=== PATIENT | male | born 1950 | race African-American/Black ===

== ENCOUNTER 2022-11-16 09:03 | Emergency (ER) | payer OTHER ==
--- OUTSIDE RECORDS SUMMARY | 2022-11-16 09:13 | XMS REPORT | Continuity of Care Document ---
:1950 Author Organization [facility] t Address [address] [facility] [address] [place] [address] Care Team Providers Name Role Phone MICHELLE NOLAN Primary Care Physician Unava ilable MICHELLE NOLAN Attending Clinician Unavailable JORGE AGUAYO Attending Clinician Unavailable PATRIA DECKER Attending Clinician Unavailable LAURA HIGUERA Attending Clinician Unavailable LAB47 Attending Clinician Unavailable [facility] Attending Clinician Unavail able RENA WEST Attending Clinician Unavailable VF1 Attending Clinician Unavailable BASHIR BAKER Attending Clinician Unavailable Bashir Baker MD Attending Clinician Unavailable SAMUEL NORTH Attending Clinician Unavailable BASHIR BAKER Attending Clinician Unavailable VIJAYA VELASQUEZ Attending Clinician Unavailable GLEN US Attending Clinician Unavailable LAB39 Attending Clinician Unavailable 39, HOLTER Attending Clinician Unavailable PANCHO MERAZ Attending Clinician Unavailable 1, OPTICAL COHERENCE TOMOGRAPHY Attending Clinician Unavaila JAMMIE Herr Attending Clinician Unavailable MAC, EKG- Attending Clinician Unavailable COVID-MODERNA VACCCINDY Attending Clinician Unavailable CHANDRIKA FREITAS Attending Clinician Unavailable Vijaya Velasquez MD Attending Clinician Patria Decker PA-C Attending Clinician FLOOR, LAB HEM-ONC 2ND Attending Clinician Unavailable Glen Us MD Attending Clinician INJCINDY Attending Clinician Unavailable VF2 Attending Clinician Unavailable Jammie Pantoja OD Attending Clinician TRED47 Attending Clinician Unavailable JILLIAN DANIEL Attending Clinician Unavailable SERAFIN DUVAL Attending Clinician Unavailable SHAYNE LEVI Attending Clinician Unavailable RENARD GUERRA Attending Clinician Unavailable LEI PEREZ Attending Clinician Unavailable BASHIR BAKER Admitting Clinician Unavailable BRADLEY GUTIERREZ Admitting Clinician Unavailable SERAFIN DUVAL Admitting Clinician Unavailable RENARD GUERRA Admitting Clinician Unavailable LEI PEREZ Admitting Clinician Unavailable Payers Payer Name Policy Type Policy Number Effective Date Expiration Date Srinivas thomas [employer] TXP 7 [id number] 2021 CLASSIC NO PREMIUM 00:00:00 R2T [employer] ALL [id number] 2018 00:00:00 Problems Condition Condition Condition Status Onset Resolution Last Treating Co mments Source Name Details Category Date Date Treatment Clinician Date S/P S/P Disease Active [facility] placement placement 05-06 Sindhu s of cardiac of cardiac 00:00: Me dical pacemaker pacemaker 00 Cent er dual dual chamber chamber MDT MRI MDT MRI conditiona conditiona l, right l, right 05/06/2022 05/06/2022 Mild Mild Disease Active 2021-04 Last Crystal protein-ca protein-ca 0-20 Assessmen Gutierrez hardin 00:00: t & Plan: - malnutriti malnutriti 00 Formattin Externa on on g of this l note might be different from the original. Has been losing weight. Appetite the same. No GI symptoms. Encourage d continue boost or ensure and increase portions. 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 Due to emphysema seen on CT scan. Last Assessmen t & Plan: Formattin g of this note might be different from the original. Controlle d No symptoms. Observati on PAD PAD Disease Recurre 2021-04 Overview[facility] (periphera (periphera nce 0-20 Formattin [facility] l artery l artery 00:00: g of this Med ical disease) disease) 00 note Center might be different from the original. Formattin g of this note might be different from the original. [place]- mild on right. Normal on left. No symptoms. Last Assessmen t & Plan: Formattin g of this note might be different from the original. Controlle d continue risk factor reduction with ASA, statin, bp control. Pericardia Pericardia Disease Active Overview : Crystal l cyst l cyst 12-05 Formattin Seybold 00:00: g of this - 00 note Externa might be l different from the original. Noted on chest CT Coronary Coronary Disease Active Overview: Ke lsey artery artery 12-05 Formattin Seybold disease disease 00:00: g of this - involving involving 00 note Ex[place] might be l coronary coronary different artery of artery of from the [place] original. heart heart Reported without without on CT angina angina scan of pectoris pectoris the chest. Treated with risk factor reduction with an aspirin and statin and blood pressure controlLa st Assessmen t & Plan: Formattin g of this note might be different from the original. Controlle d continue risk factor reduction with aspirin and blood pressure control. Lung Lung Disease Active Crystal nodule nodule 12-05 Seybold 00:00: - 00 Externa l Coronary Coronary Disease Active Overview: [facility] artery artery 12-05 Formattin [facility] disease disease 00:00: g of this Medic al involving involving 00 note Cent er [place] might be coronary coronary different artery of artery of from the [place] original. heart heart Formattin without without g of this angina angina note pectoris pectoris might be different from the original. Reported on CT scan of the chest. Treated with risk factor reduction with an aspirin and statin and blood pressure controlLa st Assessmen t & Plan: Formattin g of this note might be different from the original. Controlle d continue risk factor reduction with aspirin and blood pressure control. 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 Diet controlle d diabetes. Goal A1c is less than 8.0. CKD 3 has been stable. Pt is on an MARIO. Avoids NSAIDS.La st Assessmen t & Plan: Formattin g of this note might be different from the original. Controlle d diabetes with diet. CKD has been relativel y stable. Gastroesop Gastroesop Disease Active Jose mccarty hageal 12-02 Seybold reflux reflux 00:00: disease disease 00 without without esophagiti esophagiti s s Chronic Chronic Disease Recurre Overview: [facility] kidney kidney nce 12-02 Kandi Vicente disease, disease, 00:00: g of this Med ical stage 3a stage 3a 00 note Center might be different from the original. Formattin g of this note might be different from the original. Due to HTN and DM. Avoids NSAIDS. Control blood pressure. Monitor. Last Assessmen t & Plan: Formattin g of this note might be different from the original. Has been relativel y stable. But if continues decreased below 40 will refer to nephrolog y. MGUS MGUS Disease Active Overview: [facility] (monoclona (monoclona 12-02 Formatjake Danielkes l l 00:00: g of this Medical gammopathy gammopathy 00 note Ce nter of unknown of unknown might be significan significan different ce) ce) from the original. Formattin g of this note might be different from the original. Followed by hematolog y. Elevated urinary protein, mildly high free light chains with normal ratio.Las t Assessmen t & Plan: Formattin g of this note might be different from the original. Stable. Continue routine follow-up with hematolog y. Type 2 Type 2 Disease Active Overview: Crystal diabetes diabetes 24 Kandi Spann bold mellitus mellitus 00:00: g of this with stage with stage 00 note 3 chronic 3 chronic might be kidney kidney different disease disease from the original. Diet controlle d diabetes. Goal A1c is less than 8.0. CKD 3 has been stable. Pt is on an MARIO. Avoids NSAIDS.La st Assessmen t & Plan: Formattin g of this note might be different from the original. Controlle d DM and CKD stable. 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 Formattin g of this note might be different from the original. Pt on drops and followed by optometry . Last Assessmen t & Plan: Formattin g of this note might be different from the original. Severe but stable. Continue Rx per optometry . 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 Diet controlle d DM. Goal A1c is less than 8.0. Patient is on a statin.[facility] t & Plan: Formattin g of this note might be different from the original. Controlle d diabetes with diet. Hyperlipi demia treated with a statin. Hypertensi Hypertensi Disease Active 2018-04 Overview : Crystal ve renal ve renal 1-[address] disease disease 00:00: g of this - note Externa might be l different from the original. Goal BP less than 140/90. CKD managed by controlli ng blood pressure and avoiding NSAIDs.Ut Assessmen t & Plan: Formattin g of this note might be different from the original. Blood pressure not controlle d. We will follow-up in about 4 weeks. CKD has been relativel y stable. If continues GFR less than 40 will refer to renal. Pacemaker Pacemaker Disease Recurre [facility] infection, infection, nce 8-08 Sindhu sanjivs initial initial 00:00: Medical encounter encounter 00 Cent er Pulmonary Pulmonary Disease Recurre Overview: [facility] emphysema emphysema nce 6-30 Formattin L ukes 00:00: g of this Medical 00 note Center might be different from the original. Formattin g of this note might be different from the original. Patient has emphysema seen on CT scan. He has no symptoms. Observati on. Last Assessmen t & Plan: Formattin g of this note might be different from the original. Controlle d. Continue to monitor. Stage 3 Stage 3 Disease Active Overview: Rosy lopez chronic chronic 619 Kandi Max ld kidney kidney 00:00: g of this disease disease 00 note might be different from the original. Due to HTN and DM. Avoids NSAIDS. Control blood pressure. Monitor. Last Assessmen t & Plan: Formattin g of this note might be different from the original. Controlle d Type 2 Type [address] [facility] diabetes diabetes nce 6-17 [facility] mellitus mellitus 00:00: Medica l 00 Center Syncope Syncope Disease Active [facility] 6-10 [facility] 00:00: Medical 00 Center EILEEN (acute EILEEN (acute Disease Recurre [facility] kidney kidney nce 6-10 [facility] injury) injury) 00:00: Medical 00 Center Rhabdomyol Rhabdomyol Disease Active [facility] ysis ysis 6-09 [facility] 00:00: Medical 00 Center SSS (sick SSS (sick Disease Recurre [facility] sinus sinus nce 3-14 [facility] syndrome) syndrome) 00:00: Medi jessy 00 Center Symptomati Symptomati Disease Active [facility] c c 3-14 [facility] bradycardi bradycardi 00:00: Me dical a a 00 Center S/P S/P Disease Active [facility] placement placement 3-14 Luke s of cardiac of cardiac 00:00: Ne dical pacemaker pacemaker 00 Cent er DDDPPM MDT DDDPPM MDT MRI MRI conditiona conditiona l left l left 06/15/2018 06/15/2018 Syncope Syncope Disease Active [facility] and and 3-14 [facility] collapse collapse 00:00: Medica l 00 Center SVT SVT Disease Recurre [facility] (supravent (supravent nce 3-14 Sindhu kes ricular ricular 00:00: Medical tachycardi tachycardi 00 Ce nter a) a) SVT SVT Disease Active Overview: Crystal (supravent (supravent 3-01 Formattin Seybold ricular ricular 00:00: g of this - tachycardi tachycardi 00 note Ex terna a) a) might be l different from the original. S/p Pacemaker 06/2018. Then 11/2018 was removed @ [facility] due to infection . Pt reluctant to get another one. Last Assessmen t & Plan: Formattin g of this note might be different from the original. No symptoms. Continue to monitor. Symptomati Symptomati Disease Active Overview : Crystal tyson c 3-01 Formattin Seybold bradycardi bradycardi 00:00: g of this - a a 00 note Externa might be l different from the original. S/p Pacemaker 06/2018. Then 11/2018 was removed @ [facility] due to infection . Pt reluctant to get another one. Last Assessmen t & Plan: Formattin g of this note might be different from the original. Unchanged Acquired Acquired Disease Active Overview: [facility] hypothyroi hypothyroi 10-17 Formattin [facility] dism dism 00:00: g of this Medical 00 note Center might be different from the original. Formattin g of this note might be different from the original. Tx with levothyro xineLast Assessmen t & Plan: Formattin g of this note might be different from the original. 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 Formattin g of this note might be different from the original. Treated with alpha blockerLa st Assessmen t & Plan: Formattin g of this note might be different from the original. 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 Managed with allopurin olLast Assessmen t & Plan: Formattin g of this note might be different from the original. 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 Formattin g of this note might be different from the original. Goal blood pressure is less than 140/90. Patient is on oral medicatio ns.Last Assessmen t & Plan: Formattin g of this note might be different from the original. Elevated today. The last couple of visits were normal. We will do follow-up in about 4 weeks. 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 Formattin g of this note might be different from the original. Pt is on a statinLas t Assessmen t & Plan: Formattin g of this note might be different from the original. Controlsophia d. Continue atorvasta tin. Allergies, Adverse Reactions, Alerts Allergy Allergy Status Severity Reaction(s) Onset Inactive Treating Comm ents Source Name Type Date Date Clinician NO KNOWN Allergy Active [facility] Social History Social Habit Start Date Stop Date Quantity Comments Source Gender identity Crystal hunter - External Sexual orientation Crystal Whitley - External History SDOH [facility] Alcohol Binge Medical [facility] History SDOH [facility] Alcohol Frequency Medical Center History SDOH [facility] Alcohol Std Drinks Medica l Center Alcohol intake 2022-05-15 2022-05-15 [facility]00:00 of alcohol [facility] (finding) Exposure to 2022-02-09 2022-02-19 Not sure Crystal woodward SARS-CoV-2 (event) 00:00:00 13:26:00 - Exte rnal History of Social 2020-03-15 2020-03-15 Crystal Whitley function 00:00:00 00:00:00 - External Alcohol Comment 2018-09-10 2018-09-10 1 shot a day. Pt [facility] 00:00:[facility] 00:00:00 has not had not Medical C enter drink in a while (1wk). Cigarettes smoked 2016-08-25 2016-08-25 ALPESH Robledo current (pack per 00:00:00 00:00:00 Medical Center day) - Reported Cigarette 2016-08-25 2016-08-25 ALPESH Robledo pack-years 00:00:00 00:00:00 Medical Center Tobacco use and 2016-08-25 2016-08-25 User of smokeless [facility] exposure 00:00:00 00:00:00 tobacco Medical Center History of tobacco 2014-03-06 Chews Tobacco Payam sey Seybold use 00:00:00 - External Sex [birth year] ALPESH Goldberg 00:00:00 00:00:00 Medical Center Smoking Status Start Date Stop Date Source Ex-smoker 2022-08-03 00:00:00 2022-08-03 00:00:00 Crystal narvaez - External Medications Ordered Filled Start Stop Current Ordering Indication Dosage Frequency Signature Comments Components Source Medication Medication Date Date Medication? Clinician (SIG) Name Name Fish Yes Take by Crystal Oil-Choleca 6-19 mouth Seybold lciferol 08:55: - (FISH OIL + 11 Externa D3 OR) l Ferrous Yes [id number] 325mg Take 1 Ke lsey Sulfate 325 6-19 tablet Seybol d (65 Fe) MG 08:55: (325 mg - oral Tab 11 total) by [employer] a mouth l daily (with breakfast) Fish Yes Take by Crystal Oil-Choleca 6-05 mouth Seybold lciferol 09:34: - (FISH OIL + 35 Externa D3 OR) l Ferrous Yes [id number] 325mg Take 1 Ke lsey Sulfate 325 6-05 tablet Seybol d (65 Fe) MG 09:34: (325 mg - oral Tab 35 total) by [employer] a mouth l daily (with breakfast) NIFEdipine 2022-0 Yes [id number] 60mg Take 1 Ke lsey 60 MG oral 6-05 tablet (60 Sey bold TABLET SR 00:00: mg total) - 24 HR 00 by mouth 2 Externa times l daily NIFEdipine 2022-0 Yes [id number] 60mg Take 1 Ke lsey 60 MG oral 6-05 tablet (60 Sey bold TABLET SR 00:00: mg total) - 24 HR 00 by mouth 2 Externa times l daily Fish Yes Take by Crystal Oil-Choleca 5-02 mouth Seybold lciferol 09:07: - (FISH OIL + 03 Externa D3 OR) l Ferrous Yes [id number] 325mg Take 1 Ke lsey Sulfate 325 5-02 tablet Seybol d (65 Fe) MG 09:07: (325 mg - oral Tab 03 total) by [employer] a mouth l daily (with breakfast) Metoprolol Yes [id number] 25mg Take 1 Ke lsey Tartrate 5-02 tablet (25 Seybo ld (LOPRESSOR) 00:00: mg total) - 25 MG oral 00 by mouth 2 Ext krupa Tablet times l daily Levothyroxi Yes [id number] Take 1 Crystal ne Sodium 5-02 daily. Seybold 88 MCG oral 00:00: - Tablet 00 Externa l Metoprolol Yes [id number] 25mg Take 1 Ke lsey Tartrate 5-02 tablet (25 Seybo ld (LOPRESSOR) 00:00: mg total) - 25 MG oral 00 by mouth 2 Ext krupa Tablet times l daily Levothyroxi Yes [id number] Take 1 Crystal ne Sodium 5-02 daily. Seybold 88 MCG oral 00:00: - Tablet 00 Externa l Metoprolol 0 Yes [id number] 25mg Take 1 Ke lsey Tartrate 5-02 tablet (25 Seybo ld (LOPRESSOR) 00:00: mg total) - 25 MG oral 00 by mouth 2 Ext krupa Tablet times l daily Levothyroxi Yes [id number] Take 1 Crystal ne Sodium 5-02 daily. Seybold 88 MCG oral 00:00: - Tablet 00 Externa l Zoster Vac 2022- No [id number] 50ug Inject 0.5 Crystal Recomb 5-02 06-05 mL (50 mcg Seybol d Adjuvanted 00:00: 00:00 total) - (Shingrix) 00 :00 into the Exter na 50 MCG/0.5 muscle l mL once for 1 Intramuscul dose One ar Recon dose now. Suspension Second dose given two to six months AFTER first dose. Zoster Vac 2022- No [id number] 50ug Inject 0.5 Crystal Recomb 5-02 05-03 mL (50 mcg Seybol d Adjuvanted 00:00: 04:59 total) - (Shingrix) 00 :00 into the Exter na 50 MCG/0.5 muscle l mL once for 1 Intramuscul dose One ar Recon dose now. Suspension Second dose given two to six months AFTER first dose. Atorvastati 0 Yes TAKE ONE Ke lsey n Calcium 4-21 TABLET BY Seybo ld 20 MG oral 00:00: MOUTH - Tablet 00 EVERY DAY Externa l Atorvastati 2022-0 Yes TAKE ONE Ke lsey n Calcium 4-21 TABLET BY Seybo ld 20 MG oral 00:00: MOUTH - Tablet 00 EVERY DAY Externa l Atorvastati 2022-0 Yes TAKE ONE Ke lsey n Calcium 4-21 TABLET BY Seybo ld 20 MG oral 00:00: MOUTH - Tablet 00 EVERY DAY Externa l NIFEdipine 2022-0 Yes [id number] TAKE ONE Crystal 60 MG oral 3-10 TABLET BY Seyb old TABLET SR 00:00: MOUTH - 24 HR 00 TWICE A Externa DAY l NIFEdipine 2022-0 2022- No [id number] TAKE ONE Crystal 60 MG oral 3-10 06-05 TABLET BY Sey bold TABLET SR 00:00: 00:00 MOUTH - 24 HR 00 :00 TWICE A Externa DAY l Terazosin 2022-0 Yes TAKE ONE Rosy ey HCl 5 MG 2-24 CAPSULE BY Seybo ld oral 00:00: MOUTH - Capsule 00 EVERY Externa EVENING l Terazosin 2022-0 Yes TAKE ONE Rosy ey HCl 5 MG 2-24 CAPSULE BY Seybo ld oral 00:00: MOUTH - Capsule 00 EVERY Externa EVENING l Terazosin 2022-0 Yes TAKE ONE Rosy ey HCl 5 MG 2-24 CAPSULE BY Seybo ld oral 00:00: MOUTH - Capsule 00 EVERY Externa EVENING l Fish 2022-0 Yes Take by Crystal Oil-Choleca 2-20 mouth Seybold lciferol 12:40: - (FISH OIL + 18 Externa D3 OR) l Ferrous 2022-0 Yes [id number] 325mg Take 325 Crystal Sulfate 325 2-20 mg by Seybold (65 Fe) MG 12:40: mouth - oral Tab 18 daily Externa (with l breakfast) Brimonidine 2023-0 Yes [id number] 1[drp] Place 1 Crystal Tartrate 2-20 drop into Seybol d 0.2 % 00:00: both eyes - ophthalmic 00 2 times [employer] a Solution daily l Dorzolamide 2023-[id number] 1 Crystal -Timolol 2-20 DROP IN Seybold 22.3-6.8 00:00: EACH EYE - MG/ML 00 EVERY 12 Externa ophthalmic HOURS l Solution Latanoprost 2023-0 Yes [id number] 1[drp] Place 1 Crystal 0.005 % 2-20 drop into Seybold ophthalmic 00:00: both eyes - Solution 00 nightly Externa l Brimonidine 2023-0 Yes [id number] 1[drp] Place 1 Crystal Tartrate 2-20 drop into Seybol d 0.2 % 00:00: both eyes - ophthalmic 00 2 times [employer] a Solution daily l Dorzolamide 3-[id number] 1 Crystal -Timolol 2-20 DROP IN Seybold 22.3-6.8 00:00: EACH EYE - MG/ML 00 EVERY 12 Externa ophthalmic HOURS l Solution Latanoprost 2023-0 Yes [id number] 1[drp] Place 1 Crystal 0.005 % 2-20 drop into Seybold ophthalmic 00:00: both eyes - Solution 00 nightly Externa l Brimonidine 2023-0 Yes [id number] 1[drp] Place 1 Crystal Tartrate 2-20 drop into Seybol d 0.2 % 00:00: both eyes - ophthalmic 00 2 times [employer] a Solution daily l Dorzolamide 2023-[id number] 1 Crystal -Timolol 2-20 DROP IN Seybold 22.3-6.8 00:00: EACH EYE - MG/ML 00 EVERY 12 Externa ophthalmic HOURS l Solution Latanoprost 2023-0 Yes [id number] 1[drp] Place 1 Crystal 0.005 % 2-20 drop into Seybold ophthalmic 00:00: both eyes - Solution 00 nightly Externa l Brimonidine 2023-0 Yes [id number] 1[drp] Place 1 Crystal Tartrate 2-20 drop into Seybol d 0.2 % 00:00: both eyes - ophthalmic 00 2 times [employer] Officer a Solution daily l Dorzolamide [id number] 1 Crystal -Timolol 2-20 DROP IN Seybold 22.3-6.8 00:00: EACH EYE - MG/ML 00 EVERY 12 Externa ophthalmic HOURS l Solution Latanoprost Yes [id number] 1[drp] Place 1 Crystal 0.005 % 2-20 drop into Seybold ophthalmic 00:00: both eyes - Solution 00 nightly Externa l mINOCYCLine 2022-0 2023- No 100mg QD Take [address] (MINOCIN,DY 2-07 04- capsule Luke s NACIN) 100 00:00: 23:59 (100 mg Med ical MG capsule 00 :00 total) by Cent er mouth daily for 5 days. mINOCYCLine 2022-0 2023- No 100mg QD Take [address] (MINOCIN,DY 2- capsule Luke s NACIN) 100 00:00: 23:59 (100 mg Med ical MG capsule 00 :00 total) by Cent er mouth daily for 5 days. mINOCYCLine 2022-0 2023- No 100mg QD Take [address] (MINOCIN,DY 2- capsule Luke s NACIN) 100 00:00: 23:59 (100 mg Med ical MG capsule 00 :00 total) by Cent er mouth daily for 5 days. allopurinol 0 Yes 300mg QD Take [address] (ZYLOPRIM) 2-03 mg by [facility] 300 MG 10:34: mouth Medical tablet 59 daily. Center cloNIDine 2022-0 Yes .1mg Q.[id number] Take 0.[address] [facility] HCl 2-03 [id number] mg by [facility] (CATAPRES) 10:34: 3D mouth 3 Medi jessy 0.1 MG 59 (three) Center tablet times daily . OMEGA3/DHA/ 2022-0 Yes 1{tbl} QD Take [address] EPA/FISH 2-03 tablet by [employer] OIL/VIT D3 10:34: mouth Medica l (FISH 59 daily. Center OIL-VIT D3 ORAL) terazosin 2022-0 Yes 5mg QD Take [address] [facility] (HYTRIN) 5 2-03 by [facility] capsule 10:34: nightly. Med ical 59 Center aspirin 81 Yes 81mg QD Take [address] MG EC 2-03 by mouth [facility] tablet 10:34: daily. Medical 59 Center Missing or Yes hypothyroid 88ug Take [address] [facility] Non-Formula 2-03 ism mcg by [facility] ry 10:34: mouth Medical Medication [address] ine 88 mcg. Take 1 tablet every Tuesday, Tuesday, Tuesday, , Tuesday and Tuesday and 1 and 1/2 tab every tuesday . NIFEdipine Yes 60mg QD Take [address] (ADALAT CC) 203 by mouth Luke s 60 MG 24 hr 10:34: daily. Medi jessy tablet 59 Center atorvastati Yes 20mg QD Take [address] [facility] n (LIPITOR) 2-03 by mouth Luke s 20 MG 10:34: daily. Medical tablet 59 Center brinzolamid 0 Yes Q.[id number] Apply to [facility] e-brimonidi 05-07 [id number] eye(s) 3 [facility] ne 1-0.2 % 10:34: 3D (three) Medi jessy DrpS 59 times Center daily. dorzolamide Yes 1[drp] Q.[id number] [address] [facility] (TRUSOPT) 2 2-03 [id number] (three) [facility] % 10:34: 3D times Medical ophthalmic 59 daily. Center solution omega Yes 1000mg QD Take 1,[address] [facility] 3-dha-epa-f 2-03 mg by [facility] ross oil 10:34: mouth Medical (Fish OiL) 59 daily. Center capsule ferrous 0 Yes 325mg Take [facility] sulfate 2-03 mg [facility] (iron) 325 10:34: mouth Medica l (65 FE) MG [address] tablet breakfast. hydrALAZINE 0 Yes 50mg Q.[id number] Take [address] [facility] (APRESOLINE 2-03 [id number] by mouth 3 [facility] ) 50 MG 10:34: 3D (three) Medical tablet 59 times Center daily. allopurinol 2023-0 Yes 300mg QD Take [address] (ZYLOPRIM) 2-03 mg by [facility] 300 MG 10:34: mouth Medical tablet 59 daily. Center cloNIDine Yes .1mg Q.[id number] Take 0.[address] [facility] HCl 2-03 [id number] mg by [facility] (CATAPRES) 10:34: 3D mouth 3 Medi jessy 0.1 MG 59 (three) Center tablet times daily . OMEGA3/DHA/ Yes 1{tbl} QD Take [address] [facility] [address] [facility] EPA/FISH 2-03 tablet by [facility] OIL/VIT D3 10:34: mouth Medica l (FISH 59 daily. [place] OIL-VIT D3 ORAL) terazosin Yes 5mg QD Take [address] [facility] (HYTRIN) 5 2-03 by mouth [facility] MG capsule 10:34: nightly. Med ical 59 Center aspirin 81 Yes 81mg QD Take [address] MG EC 2-03 by mouth [facility] tablet 10:34: daily. Medical 59 Center Missing or Yes hypothyroid 88ug Take [address] [facility] [address] Non-Formula 2-03 ism mcg by [facility] ry 10:34: mouth Medical Medication [address] ine 88 mcg. Take 1 tablet every Tuesday, Tuesday, Tuesday, , Tuesday and Tuesday and 1 and 1/2 tab every tuesday . NIFEdipine Yes 60mg QD Take [address] (ADALAT CC) 2-03 by mouth Luke s 60 MG 24 hr 10:34: daily. Medi jessy tablet 59 Center atorvastati Yes 20mg QD Take [address] [facility] n (LIPITOR) 2-03 by mouth Luke [facility] 20 MG 10:34: daily. Medical tablet 59 Center brinzolamid Yes Q.[id number] Apply to [facility] e-brimonidi 2-03 [id number] eye(s) 3 [facility] ne 1-0.2 % 10:34: 3D (three) Medi jessy DrpS 59 times Center daily. dorzolamide Yes 1[drp] Q.[id number] [address] [facility] (TRUSOPT) 2 2-03 [id number] (three) [facility] % 10:34: 3D times Medical ophthalmic 59 daily. Center solution omega 0 Yes 1000mg QD Take 1,[address] [facility] 3-dha-epa-f 2-03 mg by [facility] ross oil 10:34: mouth Medical (Fish OiL) 59 daily. Center capsule ferrous 0 Yes 325mg Take 325 [facility] sulfate 2-03 mg [facility] (iron) 325 10:34: mouth Medica l (65 FE) MG [address] tablet breakfast. hydrALAZINE 0 Yes 50mg Q.[id number] Take [address] [facility] (APRESOLINE 2-03 [id number] by mouth 3 [facility] ) 50 MG 10:34: 3D (three) Medical tablet 59 times Center daily. allopurinol 0 Yes 300mg QD Take [address] (ZYLOPRIM) 2-03 mg by [facility] 300 MG 10:34: mouth Medical tablet 59 daily. Center cloNIDine 0 Yes .1mg Q.[id number] Take 0.[address] [facility] HCl 2-03 [id number] mg by [facility] (CATAPRES) 10:34: 3D mouth 3 Medi jessy 0.1 MG 59 (three) Center tablet times daily . OMEGA3/DHA/ Yes 1{tbl} QD Take [address] [facility] [address] [facility] EPA/FISH 2-03 tablet by [facility] OIL/VIT D3 10:34: mouth Medica l (FISH 59 daily. Center OIL-VIT D3 ORAL) terazosin 0 Yes 5mg QD Take [address] [facility] (HYTRIN) 5 2-03 by mouth [facility] capsule 10:34: nightly. Med ical 59 Center aspirin 81 0 Yes 81mg QD Take [address] MG EC 2-03 by mouth [facility] tablet 10:34: daily. Medical 59 Center Missing or Yes hypothyroid 88ug Take [address] [facility] [address] Non-Formula 2-03 ism mcg by [facility] ry 10:34: mouth Medical Medication [address] ine 88 mcg. Take 1 tablet every Tuesday, Tuesday, Tuesday, , Tuesday and Tuesday and 1 and 1/2 tab every tuesday . NIFEdipine 0 Yes 60mg QD Take [address] (ADALAT CC) 2-03 by mouth Luke s 60 MG 24 hr 10:34: daily. Medi jessy tablet 59 [place] atorvastati Yes 20mg QD Take [address] [facility] n (LIPITOR) 2-03 by mouth Luke s 20 MG 10:34: daily. Medical tablet 59 [place] brinzolamid Yes Q.[id number] Apply to [facility] e-brimonidi 05-07 [id number] eye(s) 3 [facility] ne 1-0.2 % 10:34: 3D (three) Medi jessy DrpS 59 times Center daily. dorzolamide Yes 1[drp] Q.[id number] [address] [facility] (TRUSOPT) 2 2- [id number] (three) [facility] % 10:34: 3D times Medical ophthalmic 59 daily. [place] solution omega Yes 1000mg QD Take 1,[address] [facility] 3-dha-epa-f 2-03 mg by [facility] ross oil 10:34: mouth Medical (Fish OiL) 59 daily. [place] capsule ferrous Yes 325mg Take [facility] sulfate 2-03 mg [facility] (iron) 325 10:34: mouth Medica l (65 FE) MG [address] tablet breakfast. hydrALAZINE Yes 50mg Q.[id number] Take [address] [facility] (APRESOLINE 05-07 [id number] by mouth 3 [facility] ) 50 MG 10:34: 3D (three) Medical tablet 59 times Center daily. Minocycline 2022- No 100mg Take 1 [facility] HCl 100 MG 05-07 capsule Seybo ld oral 00:00: 00:00 (100 mg - Capsule 00 :00 total) by Externa mouth 2 l times daily for 5 days BRING TO HOSPITAL. TO START AFTER THE PROCEDURE. traMADol 2022- No 50mg QD Take [address] [facility] [address] [facility] (ULTRAM) 50 05-06 by mouth [facility] mg tablet 08:19: 00:00 daily . Medi jessy 58 :00 [place] traMADol 0 2022- No 50mg QD Take [address] [facility] [address] [facility] (ULTRAM) 50 05-06- by mouth [facility] es mg tablet 08:19: 00:00 daily . Medi jessy 58 :00 [place] traMADol 2022-2022- No 50mg QD Take [address] [facility] [address] [facility] (ULTRAM) 50 05-06 by mouth Kaya es mg tablet 08:19: 00:00 daily . [facility] jessy 58 :00 [place] gabapentin 2022-0 2022- No 600mg Q.[id number] Take [address] [facility] (NEURONTIN) 05-06 [id number] mg by [facility] 600 MG 08:19: 00:00 3D mouth 3 Medical tablet 55 :00 (three) Center times daily . gabapentin 2022-0 2022- No 600mg Q.[id number] Take [address] [facility] (NEURONTIN) 05-06 [id number] mg by [facility] 600 MG 08:19: 00:00 3D mouth 3 Medical tablet 55 :00 (three) Center times daily . gabapentin 2022-0 2022- No 600mg Q.[id number] Take [address] [facility] (NEURONTIN) 05-06 [id number] mg by [facility] 600 MG 08:19: 00:00 3D mouth 3 Medical tablet 55 :00 (three) Center times daily . amLODIPine 2022-0 2022- No 10mg QD Take [address] [facility] (NORVASC) 05-06 by mouth [facility] 10 MG 08:19: 00:00 daily. Medical tablet 43 :00 [place] amLODIPine 2022-0 2022- No 10mg QD Take [address] [facility] (NORVASC) 05-06 by mouth [facility] 10 MG 08:19: 00:00 daily. Medical tablet 43 :00 [place] amLODIPine 2022-0 2022- No 10mg QD Take [address] [facility] (NORVASC) 05-06 by mouth [facility] 10 MG 08:19: 00:00 daily. Medical tablet 43 :00 [place] hydrALAZINE 2022-0 Yes 50mg Take 1 Rosy ey HCl 50 MG 1-18 tablet (50 Seyb old oral Tablet 00:00: mg total) - 00 by mouth 3 Externa times l daily hydrALAZINE 3-0 Yes 50mg Take 1 Ros[facility] ey HCl 50 MG 1-18 tablet (50 Seyb old oral Tablet 00:00: mg total) - 00 by mouth 3 Externa times l daily hydrALAZINE 2023-0 Yes 50mg Take 1 Rosy ey HCl 50 MG 1-18 tablet (50 Seyb old oral Tablet 00:00: mg total) - 00 by mouth 3 Externa times l daily hydrALAZINE 0 Yes 50mg Take 1 Rosy ey HCl 50 MG 1-18 tablet (50 Seyb old oral Tablet 00:00: mg total) - 00 by mouth 3 Externa times l daily Clonidine 2022-0 Yes [id number] TAKE ONE K elsey HCl 0.1 MG 1-10 TABLET BY Seyb old oral Tablet 00:00: MOUTH - 00 THREE Externa TIMES A l DAY Clonidine 2022-0 Yes [id number] TAKE ONE K elsey HCl 0.1 MG 1-10 TABLET BY Seyb old oral Tablet 00:00: MOUTH - 00 THREE Externa TIMES A l DAY Clonidine 2022-0 Yes [id number] TAKE ONE K elsey HCl 0.1 MG 1-10 TABLET BY Seyb old oral Tablet 00:00: MOUTH - 00 THREE Externa TIMES A l DAY Clonidine 2022-0 Yes [id number] TAKE ONE K elsey HCl 0.1 MG 1-10 TABLET BY Seyb old oral Tablet 00:00: MOUTH - 00 THREE Externa TIMES A l DAY Fish 2021-04 Yes Take by [facility] Oil-Choleca 2-19 mouth Seybold lciferol 08:00: - (FISH OIL + 51 Externa D3 OR) l Ferrous 2021-04 Yes [id number] 325mg Take 325 [facility] Sulfate 325 2-19 mg by Seybold (65 Fe) MG 08:00: mouth - oral Tab 51 daily Externa (with l breakfast) Fish 2021-04 Yes Take by [facility] Oil-Choleca 1-21 mouth Seybold lciferol 13:45: - (FISH OIL + 01 Externa D3 OR) l Ferrous 2021-04 Yes [id number] 325mg Take 325 [facility] Sulfate 325 1-21 mg by Seybold (65 Fe) MG 13:45: mouth - oral Tab 01 daily Externa (with l breakfast) Fish 2021-04 Yes Take by [facility] Oil-Choleca 1-18 mouth Seybold lciferol 13:26: - (FISH OIL + 15 Externa D3 OR) l Ferrous 2021-04 Yes [id number] 325mg Take 325 [facility] Sulfate 325 1-18 mg by Seybold (65 Fe) MG 13:26: mouth - oral Tab 15 daily Externa (with l breakfast) NIFEdipine 2021-04 Yes [id number] 60mg Take 1 Ke lsey 60 MG oral 1-18 tablet (60 Sey bold TABLET SR 00:00: mg total) - 24 HR 00 by mouth 2 Externa times l daily NIFEdipine 2021-04 Yes [id number] 60mg Take 1 Ke lsey 60 MG oral 1-18 tablet (60 Sey bold TABLET SR 00:00: mg total) - 24 HR 00 by mouth 2 Externa times l daily NIFEdipine 2021-04 Yes [id number] 60mg Take 1 Ke lsey 60 MG oral 1-18 tablet (60 Sey bold TABLET SR 00:00: mg total) - 24 HR 00 by mouth 2 Externa times l daily NIFEdipine 2021-04 Yes [id number] 60mg Take 1 Ke lsey 60 MG oral 1-18 tablet (60 Sey bold TABLET SR 00:00: mg total) - 24 HR 00 by mouth 2 Externa times l daily Allopurinol 2021-04 Yes [id number] TAKE ONE Crystal 100 MG oral 0-20 9103 TABLET BY Sey bold Tablet 00:00: MOUTH - 00 EVERY DAY Externa l HYDROcodone 2021-04 Yes 1{tbl} Q.[id number] Take 1 Crystal -Acetaminop 0-20 [id number] tablet by Seybold june ([employer]) 00:00: 3D mouth - 5-325 MG 00 every 8 Externa oral Tablet hours as l needed for pain For chronic pain/degen erative disc disease Allopurinol 2021-04 Yes [id number] TAKE ONE Crystal 100 MG oral 0-20 9103 TABLET BY Sey bold Tablet 00:00: MOUTH - 00 EVERY DAY Externa l HYDROcodone 2021-04 Yes 1{tbl} Q.[id number] Take 1 Crystal -Acetaminop 0-20 [id number] tablet by Seybold hen ([employer]) 00:00: 3D mouth - 5-325 MG 00 every 8 Externa oral Tablet hours as l needed for pain For chronic pain/degen erative disc disease Allopurinol 2021-04 Yes [id number] TAKE ONE Crystal 100 MG oral 0-20 9103 TABLET BY Sey bold Tablet 00:00: MOUTH - 00 EVERY DAY Externa l HYDROcodone 2021-04 Yes [id number] 1{tbl} Q.[id number] Take 1 Crystal -Acetaminop 0-20 [id number] tablet by [email or web address] ([employer]) 00:00: 3D mouth - 5-325 MG 00 every 8 Externa oral Tablet hours as l needed for pain For chronic pain/degen erative disc disease Allopurinol 2021-04 Yes [id number] TAKE ONE Crystal 100 MG oral 0-20 9103 TABLET BY Sey bold Tablet 00:00: MOUTH - 00 EVERY DAY Externa l HYDROcodone 2021-04 Yes [id number] 1{tbl} Q.[id number] Take 1 Crystal -Acetaminop 0-20 [id number] tablet by [email or web address] ([employer]) 00:00: 3D mouth - 5-325 MG 00 every 8 Externa oral Tablet hours as l needed for pain For chronic pain/degen erative disc disease Allopurinol 2021-04 Yes [id number] TAKE ONE Crystal 100 MG oral 0-20 9103 TABLET BY [employer] [facility] Tablet 00:00: MOUTH - 00 EVERY DAY Externa l HYDROcodone 2021-04 Yes [id number] 1{tbl} Q.[id number] Take 1 Crystal -Acetaminop 0-20 [id number] tablet by [email or web address] ([employer]) 00:00: 3D mouth - 5-325 MG 00 every 8 Externa oral Tablet hours as l needed for pain For chronic pain/degen erative disc disease Allopurinol 2021-04 Yes [id number] TAKE ONE Crystal 100 MG oral 0-20 9103 TABLET BY Sey bold Tablet 00:00: MOUTH - 00 EVERY DAY Externa l HYDROcodone 2021-04 Yes [id number] 1{tbl} Q.[id number] Take 1 [facility] -Acetaminop 0-20 [id number] tablet by [facility]lipl[facility] hen ([employer]) 00:00: 3D mouth - 5-325 MG 00 every 8 Externa oral Tablet hours as l needed for pain For chronic pain/degen erative disc disease Allopurinol 2021-04 Yes [id number] TAKE ONE Crystal 100 MG oral 0-20 9103 TABLET BY Sey bold Tablet 00:00: MOUTH - 00 EVERY DAY Externa l HYDROcodone 2022-1 Yes [id number] 1{tbl} Q.[id number] Take 1 Crystal -Acetaminop 0-20 [id number] tablet by Gutierrez watkins ([place]) 00:00: 3D mouth - 5-325 MG 00 every 8 Externa oral Tablet hours as l needed for pain For chronic pain/degen erative disc disease Levothyroxi 2021-0 Yes [id number] Take 1 [facility] ne Sodium 7-26 daily. Seybold 88 MCG oral 00:00: - Tablet 00 Externa l Levothyroxi 2021-0 Yes [id number] Take 1 [facility] ne Sodium 7-26 daily. Seybold 88 MCG oral 00:00: - Tablet 00 Externa l Levothyroxi 2021-0 Yes [id number] Take 1 Crystal ne Sodium 7-26 daily. Seybold 88 MCG oral 00:00: - Tablet 00 Externa l Levothyroxi 2021-0 Yes [id number] Take 1 Crystal ne Sodium 7-26 daily. Seybold 88 MCG oral 00:00: - Tablet 00 Externa l Levothyroxi 2021-0 2023- No [id number] Take 1 Crystal ne Sodium 7-26 05-02 daily. Seybold 88 MCG oral 00:00: 00:00 - Tablet 00 :00 Externa l NIFEdipine 2022-0 2022- No [id number] TAKE ONE Crystal 30 MG oral 5-16 11-18 TABLET BY Sey bold TABLET SR 00:00: 00:00 MOUTH - 24 HR 00 :00 TWICE A Externa DAY l Clonidine 2-0 Yes [id number] TAKE ONE K elsey HCl 0.1 MG 4-18 TABLET BY Seyb old oral Tablet 00:00: MOUTH - 00 THREE Externa TIMES A l DAY Clonidine 2021-0 Yes [id number] TAKE ONE K elsey HCl 0.1 MG 4-18 TABLET BY Seyb old oral Tablet 00:00: MOUTH - 00 THREE Externa TIMES A l DAY Clonidine 2-0 Yes [id number] TAKE ONE K elsey HCl 0.1 MG 4-18 TABLET BY Seyb old oral Tablet 00:00: MOUTH - 00 THREE Externa TIMES A l DAY Atorvastati 2021-0 Yes TAKE ONE Ke lsey n Calcium 4-14 TABLET BY Seybo ld 20 MG oral 00:00: MOUTH - Tablet 00 EVERY DAY Externa l Terazosin 0 Yes TAKE ONE Rosy ey HCl 5 MG 4-14 CAPSULE BY Seybo ld oral 00:00: MOUTH IN - Capsule 00 THE Externa EVENING l Atorvastati 0 Yes TAKE ONE Ke lsey n Calcium 4-14 TABLET BY Seybo ld 20 MG oral 00:00: MOUTH - Tablet 00 EVERY DAY Externa l Terazosin 0 Yes TAKE ONE Rosy ey HCl 5 MG 4-14 CAPSULE BY Seybo ld oral 00:00: MOUTH IN - Capsule 00 THE Externa EVENING l Atorvastati Yes TAKE ONE Ke lsey n Calcium 4-14 TABLET BY Seybo ld 20 MG oral 00:00: MOUTH - Tablet 00 EVERY DAY Externa l Terazosin Yes TAKE ONE Rosy ey HCl 5 MG 4-14 CAPSULE BY Seybo ld oral 00:00: MOUTH IN - Capsule 00 THE Externa EVENING l Atorvastati Yes TAKE ONE Ke lsey n Calcium 4-14 TABLET BY Seybo ld 20 MG oral 00:00: MOUTH - Tablet 00 EVERY DAY Externa l Terazosin 0 Yes TAKE ONE Rosy ey HCl 5 MG 4-14 CAPSULE BY Seybo ld oral 00:00: MOUTH IN - Capsule 00 THE Externa EVENING l Fish Yes Take by [facility] Oil-Choleca 4-06 mouth Seybold lciferol 09:26: (FISH OIL + 52 D3 OR) Ferrous 2021-0 Yes [id number] 325mg Take 325 Crystal Sulfate 325 4-06 mg by Seybold (65 Fe) MG 09:26: mouth oral Tab 52 daily (with breakfast) Latanoprost Yes [id number] 1[drp] Place 1 Crystal 0.005 % 4-06 drop into Seybold ophthalmic 00:00: both eyes Solution 00 nightly Latanoprost 2021-0 Yes [id number] 1[drp] Place 1 Crystal 0.005 % 4-06 drop into Seybold ophthalmic 00:00: both eyes - Solution 00 nightly Externa l Latanoprost 0 Yes [id number] 1[drp] Place 1 Crystal 0.005 % 4-06 drop into Seybold ophthalmic 00:00: both eyes - Solution 00 nightly Externa l Latanoprost 0 Yes [id number] 1[drp] Place 1 Crystal 0.005 % 4-06 drop into Seybold ophthalmic 00:00: both eyes - Solution 00 nightly Externa l Latanoprost 0 3- No [id number] 1[drp] Place 1 Crystal 0.005 % 4-06 02-20 drop into Seybol d ophthalmic 00:00: 00:00 both eyes - Solution 00 :00 nightly Externa l Fish 0 Yes Take by [facility] Oil-Choleca 2-28 mouth Seybold lciferol 12:52: (FISH OIL + 16 D3 OR) Ferrous 0 Yes [id number] 325mg Take 325 Crystal Sulfate 325 2-28 mg by Seybold (65 Fe) MG 12:52: mouth oral Tab 16 daily (with breakfast) Blood 2021-0 Yes [id number] Check Crystal Pressure 2-28 blood Seybold Monitor 00:00: pressure does not 00 daily apply Kit Blood 2021-0 Yes [id number] Check Crystal Pressure 2-28 blood Seybold Monitor 00:00: pressure does not 00 daily apply Kit Blood 2021-0 Yes [id number] Check Crystal Pressure 2-28 blood Seybold Monitor 00:00: pressure - does not 00 daily Externa apply Kit l Blood 2021-0 Yes [id number] Check Crystal Pressure 2-28 blood Seybold Monitor 00:00: pressure - does not 00 daily Externa apply Kit l Blood 2021-0 Yes [id number] Check Crystal Pressure 2-28 blood Seybold Monitor 00:00: pressure - does not 00 daily Externa apply Kit l Blood 2021-0 Yes [id number] Check Crystal Pressure 2-28 blood Seybold Monitor 00:00: pressure - does not 00 daily Externa apply Kit l Blood 2021-0 Yes [id number] Check Crystal Pressure 2-28 blood Seybold Monitor 00:00: pressure - does not 00 daily Externa apply Kit l Blood 2021-0 Yes [id number] Check Crystal Pressure 2-28 blood Seybold Monitor 00:00: pressure - does not 00 daily Externa apply Kit l Blood 2021-0 Yes [id number] Check Crystal Pressure 2-28 blood Seybold Monitor 00:00: pressure - does not 00 daily Externa apply Kit l Dorzolamide [address] Payam sey -Timolol 2-14 DROP IN Seybold 22.3-6.8 00:00: EACH EYE MG/ML 00 EVERY 12 ophthalmic HOURS Solution Brimonidine [address] Payam sey Tartrate 2-14 DROP INTO Seybol d 0.2 % 00:00: BOTH EYES ophthalmic 00 TWO TIMES Solution A DAY Dorzolamide [address] 1 Payam sey -Timolol 2-14 DROP IN Seybold 22.3-6.8 00:00: EACH EYE MG/ML 00 EVERY 12 ophthalmic HOURS Solution Brimonidine 2021-[address] 1 Payam sey Tartrate 2-14 DROP INTO Seybol d 0.2 % 00:00: BOTH EYES ophthalmic 00 TWO TIMES Solution A DAY Dorzolamide [address] 1 Payam sey -Timolol 2-14 DROP IN Seybold 22.3-6.8 00:00: EACH EYE - MG/ML 00 EVERY 12 Externa ophthalmic HOURS l Solution Brimonidine 2021-[address] 1 Payam sey Tartrate 2-14 DROP INTO Seybol d 0.2 % 00:00: BOTH EYES - ophthalmic 00 TWO TIMES Exte rna Solution A DAY l Dorzolamide [address] 1 Payam sey -Timolol 2-14 DROP IN Seybold 22.3-6.8 00:00: EACH EYE - MG/ML 00 EVERY 12 Externa ophthalmic HOURS l Solution Brimonidine 2021-[address] 1 Payam sey Tartrate 2-14 DROP INTO Seybol d 0.2 % 00:00: BOTH EYES - ophthalmic 00 TWO TIMES Exte rna Solution A DAY l Dorzolamide [address] 1 Payam sey -Timolol 2-14 DROP IN Seybold 22.3-6.8 00:00: EACH EYE - MG/ML 00 EVERY 12 Externa ophthalmic HOURS l Solution Brimonidine 2021-[address] 1 Payam sey Tartrate 2-14 DROP INTO Seybol d 0.2 % 00:00: BOTH EYES - ophthalmic 00 TWO TIMES Exte rna Solution A DAY l Dorzolamide 2021-0 2022- No PLACE 1 Ke lsey -Timolol 2-14 02-20 DROP IN Seybold 22.3-6.8 00:00: 00:00 EACH EYE - MG/ML 00 :00 EVERY 12 Externa ophthalmic HOURS l Solution Brimonidine 2022- No PLACE 1 Ke lsey Tartrate 2-14 02-20 DROP INTO Seybo ld 0.2 % 00:00: 00:00 BOTH EYES - ophthalmic 00 :00 TWO TIMES Exte rna Solution A DAY l Fish Yes Take by [facility] Oil-Choleca 2-01 mouth Seybold lciferol 10:47: (FISH OIL + 33 D3 OR) Ferrous Yes [id number] 325mg Take 325 Crystal Sulfate 325 2-01 mg by Seybold (65 Fe) MG 10:47: mouth oral Tab 33 daily (with breakfast) Acetaminoph Yes 1{tbl} Q4H Take 1 Ke lsey en-Codeine 2-01 tablet by Hiram israel (TYLENOL/CO 00:00: mouth DEINE #3) 00 every 4 300-30 MG hours as oral Tablet needed for pain Acetaminoph Yes 1{tbl} Q4H Take 1 Ke lsey en-Codeine 2-01 tablet by Hiram israel (TYLENOL/CO 00:00: mouth DEINE #3) 00 every 4 300-30 MG hours as oral Tablet needed for pain Acetaminoph Yes 1{tbl} Q4H Take 1 Ke lsey en-Codeine 2-01 tablet by Hiram israel (TYLENOL/CO 00:00: mouth DEINE #3) 00 every 4 300-30 MG hours as oral Tablet needed for pain Fish Yes Take by [facility] Oil-Choleca 1-25 mouth Seybold lciferol 10:53: (FISH OIL + 58 D3 OR) Ferrous Yes [id number] 325mg Take 325 Crystal Sulfate 325 1-25 mg by Seybold (65 Fe) MG 10:53: mouth oral Tab 58 daily (with breakfast) Levothyroxi Yes [id number] Take 1 Crystal ne Sodium 1-25 daily. Seybold 88 MCG oral 00:00: Tablet 00 Levothyroxi Yes [id number] Take 1 Crystal ne Sodium 1-25 daily. Seybold 88 MCG oral 00:00: Tablet 00 Levothyroxi 2021-0 Yes [id number] Take 1 Crystal ne Sodium 1-25 daily. Seybold 88 MCG oral 00:00: Tablet 00 Levothyroxi 2021-0 Yes [id number] Take 1 Crystal ne Sodium 1-25 daily. Seybold 88 MCG oral 00:00: Tablet 00 Lisinopril 2021-0 Yes TAKE ONE Payam sey 20 MG oral 1-13 TABLET BY Seyb old Tablet 00:00: MOUTH 00 EVERY DAY Lisinopril 2021-0 Yes TAKE ONE Payam sey 20 MG oral 1-13 TABLET BY Seyb old Tablet 00:00: MOUTH 00 EVERY DAY Lisinopril 2021-0 Yes TAKE ONE Payam sey 20 MG oral 1-13 TABLET BY Seyb old Tablet 00:00: MOUTH 00 EVERY DAY Lisinopril 2021-0 Yes TAKE ONE Payam sey 20 MG oral 1-13 TABLET BY Seyb old Tablet 00:00: MOUTH 00 EVERY DAY Lisinopril 2021-0 Yes TAKE ONE Payam sey 20 MG oral 1-13 TABLET BY Seyb old Tablet 00:00: MOUTH - 00 EVERY DAY Externa l Lisinopril 2021-0 Yes TAKE ONE Payam sey 20 MG oral 1-13 TABLET BY Seyb old Tablet 00:00: MOUTH - 00 EVERY DAY Externa l Lisinopril 2021-0 Yes TAKE ONE Payam sey 20 MG oral 1-13 TABLET BY Seyb old Tablet 00:00: MOUTH - 00 EVERY DAY Externa l Levothyroxi 2020-04 2022- No [id number] TAKE ONE Crystal ne Sodium 2-15 01-25 TABLET BY Seyb old 88 MCG oral 00:00: 00:00 MOUTH Tablet 00 :00 EVERY DAY TUESDAY THROUGH TUESDAY AND 1 AND 1/2 TABLET ON SUNDAYS NIFEdipine 2020- Yes [id number] TAKE ONE Crystal 30 MG oral 1-18 TABLET BY Seyb old TABLET SR 00:00: MOUTH 24 HR 00 TWICE A DAY NIFEdipine 2020-1 Yes [id number] TAKE ONE Crystal 30 MG oral 1-18 TABLET BY Seyb old TABLET SR 00:00: MOUTH 24 HR 00 TWICE A DAY NIFEdipine 2020- Yes [id number] TAKE ONE Crystal 30 MG oral 1-18 TABLET BY Seyb old TABLET SR 00:00: MOUTH 24 HR 00 TWICE A DAY NIFEdipine 2020-04 Yes [id number] TAKE ONE Crystal 30 MG oral 1-18 TABLET BY Seyb old TABLET SR 00:00: MOUTH 24 HR 00 TWICE A DAY Fish 2020-04 Yes Take by [facility] Oil-Choleca 0-06 mouth Seybold lciferol 09:19: (FISH OIL + 35 D3 OR) Ferrous 2020-04 Yes [id number] 325mg Take 325 Crystal Sulfate 325 0-06 mg by Seybold (65 Fe) MG 09:19: mouth oral Tab 35 daily (with breakfast) Allopurinol Yes [id number] 100mg Take 1 Crystal 100 MG oral - 9103 tablet Seybol d Tablet 00:00: (100 mg 00 total) by mouth daily Allopurinol Yes [id number] 100mg Take 1 Crystal 100 MG oral - 9103 tablet Seybol d Tablet 00:00: (100 mg 00 total) by mouth daily Allopurinol Yes [id number] 100mg Take 1 Crystal 100 MG oral - 9103 tablet Seybol d Tablet 00:00: (100 mg 00 total) by mouth daily Allopurinol Yes [id number] 100mg Take 1 Crystal 100 MG oral - 9103 tablet Seybol d Tablet 00:00: (100 mg 00 total) by mouth daily Levothyroxi Yes [id number] 88ug Take 1 Crystal ne Sodium - tablet (88 Seyb old 88 MCG oral 00:00: mcg total) Tablet 00 by mouth daily Allopurinol Yes [id number] 100mg Take 1 Crystal 100 MG oral - 9103 tablet Seybol d Tablet 00:00: (100 mg 00 total) by mouth daily Clonidine Yes [id number] TAKE ONE K elsey HCl 0.1 MG 7-13 TABLET BY Seyb old oral Tablet 00:00: MOUTH 00 THREE TIMES A DAY Clonidine Yes [id number] TAKE ONE K elsey HCl 0.1 MG 7-13 TABLET BY Seyb old oral Tablet 00:00: MOUTH 00 THREE TIMES A DAY Clonidine Yes [id number] TAKE ONE K elsey HCl 0.1 MG 7-13 TABLET BY Seyb old oral Tablet 00:00: MOUTH 00 THREE TIMES A DAY Clonidine 2020-0 Yes [id number] TAKE ONE K elsey HCl 0.1 MG 7-13 TABLET BY Seyb old oral Tablet 00:00: MOUTH 00 THREE TIMES A DAY Lisinopril 2020-0 Yes TAKE ONE Payam sey 20 MG oral 7-13 TABLET BY Seyb old Tablet 00:00: MOUTH 00 EVERY DAY Clonidine 2020-0 Yes [id number] TAKE ONE K elsey HCl 0.1 MG 7-13 TABLET BY Seyb old oral Tablet 00:00: MOUTH 00 THREE TIMES A DAY Latanoprost 0 Yes [id number] 1[drp] Place 1 Crystal 0.005 % 6-04 drop into [facility] ophthalmic 00:00: both eyes Solution 00 nightly Latanoprost 0 Yes [id number] 1[drp] Place 1 Crystal 0.005 % 6-04 drop into [facility] ophthal[facility] 00:00: both eyes Solution 00 nightly Latanoprost 0 Yes [id number] 1[drp] Place 1 Crystal 0.005 % 6-04 drop into [facility] ophthal[facility] 00:00: both eyes Solution 00 nightly Latanoprost 2020-0 Yes [id number] 1[drp] Place 1 Crystal 0.005 % 6-04 drop into [facility] ophthal[facility] 00:00: both eyes Solution 00 nightly Latanoprost 2020-0 2022- No [id number] 1[drp] Place 1 Crystal 0.005 % 6-04 04-06 drop into [facility] ophthalmic 00:00: 00:00 both eyes Solution 00 :[address] night[address] Payam sey -Timolol 5-03 DROP IN [facility] 22.3-6.8 00:00: EACH EYE MG/ML 00 EVERY 12 ophthalmic HOURS Solution Dorzolamide [address] 1 Payam sey -Timolol 5-03 DROP IN [facility] 22.3-6.8 00:00: EACH EYE MG/ML 00 EVERY 12 ophthalmic HOURS Solution Dorzolamide [address] 1 Payam sey -Timolol 5-03 DROP IN [facility] 22.3-6.8 00:00: EACH EYE MG/ML 00 EVERY 12 ophthalmic HOURS Solution Brimonidine [address] Payam sey Tartrate 4-29 DROP INTO [facility] 0.2 % 00:00: BOTH EYES ophthalmic 00 TWO TIMES Solution A DAY Brimonidine [address] Payam sey Tartrate 4-29 DROP INTO [facility] 0.2 % 00:00: BOTH EYES ophthalmic 00 TWO TIMES Solution A DAY Brimonidine [address] Pay[facility] se[facility] Tartrate 4-29 DROP INTO [facility] 0.2 % 00:00: BOTH EYES ophthalmic 00 TWO TIMES Solution A DAY NIFEdipine 0 Yes [id number] 30mg Take 1 [facility] 30 MG oral 3-24 tablet (30 Sey bold TABLET SR 00:00: mg total) 24 HR 00 by mouth 2 times daily Atorvastati 0 Yes TAKE ONE [facility] n Calcium 3-04 TABLET BY [facility] 20 MG oral 00:00: MOUTH Tablet 00 EVERY DAY Terazosin 0 Yes TAKE 1 [facility] HCl 5 MG 3-04 CAPSULE BY [facility] oral 00:00: MOUTH Capsule 00 EVERY EVENING Atorvastati 0 Yes TAKE ONE [facility] n Calcium 3-04 TABLET BY [facility] 20 MG oral 00:00: MOUTH Tablet 00 EVERY DAY Terazosin 2020-0 Yes TAKE 1 [facility] HCl 5 MG 3-04 CAPSULE BY [facility] oral 00:00: MOUTH Capsule 00 EVERY EVENING Atorvastati 0 Yes TAKE ONE [facility] n Calcium 3-04 TABLET BY [facility] 20 MG oral 00:00: MOUTH Tablet 00 EVERY DAY Terazosin 2020-0 Yes TAKE 1 [facility] HCl 5 MG 3-04 CAPSULE BY [facility] oral 00:00: MOUTH Capsule 00 EVERY EVENING Atorvastati 0 Yes TAKE ONE [facility] n Calcium 3-04 TABLET BY [facility] 20 MG oral 00:00: MOUTH Tablet 00 EVERY DAY Terazosin 2020-0 Yes TAKE 1 [facility] HCl 5 MG 3-04 CAPSULE BY [facility] oral 00:00: MOUTH Capsule 00 EVERY EVENING Atorvastati 0 Yes TAKE ONE [facility] n Calcium 3-04 TABLET BY [facility] 20 MG oral 00:00: MOUTH Tablet 00 EVERY DAY Terazosin Yes TAKE 1 [facility] HCl 5 MG 3-04 CAPSULE BY [facility] oral 00:00: MOUTH Capsule 00 EVERY EVENING Furosemide 2018-04 Yes [id number] 20mg Take 1 Crystal 20 MG oral 1-15 tablet (20 Sey bold Tab 00:00: mg total) 00 by mouth daily Furosemide 2018-04 Yes [id number] 20mg Take 1 Crystal 20 MG oral 1-15 tablet (20 Sey bold Tab 00:00: mg total) 00 by mouth daily Furosemide 2018-04 Yes [id number] 20mg Take 1 Crystal 20 MG oral 1-15 tablet (20 Sey bold Tab 00:00: mg total) 00 by mouth daily Furosemide 2018-04 Yes [id number] 20mg Take 1 Crystal 20 MG oral 1-15 tablet (20 Sey bold Tab 00:00: mg total) 00 by mouth daily Furosemide 2018-04 Yes [id number] 20mg Take 1 Crystal 20 MG oral 1-15 tablet (20 Sey bold Tab 00:00: mg total) 00 by mouth daily allopurinol Yes 300mg QD Take [address] (ZYLOPRIM) 8-12 [facility] 13:32: mouth Medical tablet 23 daily. [place] amLODIPine Yes 10mg QD Take [address] (NORVASC) 8-12 by [facility] 10 MG 13:32: daily. Medical tablet 23 [place] cloNIDine Yes .1mg Q.[id number] Take 0.[address] [facility] HCl 8-12 [id number] mg by [facility] (CATAPRES) 13:32: 3D mouth 3 Medi jessy 0.1 MG 23 (three) [place] tablet times daily . OMEGA3/DHA/ Yes 1{tbl} QD Take [address] [facility] [address] [facility] EPA/FISH 8-12 tablet by [facility] OIL/VIT D3 13:32: mouth Medica l (FISH 23 daily. [place] OIL-VIT D3 ORAL) terazosin Yes 5mg QD Take [address] [facility] (HYTRIN) 5 8-12 by mouth [facility] MG capsule 13:32: nightly. Med ical 23 [place] gabapentin Yes 600mg Q.[id number] Take [address] [facility] (NEURONTIN) 8-12 [id number] mg by [facility] 600 MG 13:32: 3D mouth 3 Medical tablet 23 (three) Center times daily . traMADol Yes 50mg QD Take [address] [facility] (ULTRAM) 50 8-12 by mouth [facility] mg tablet 13:32: daily . Medic al 23 [place] aspirin 81 0 Yes 81mg QD Take [address] MG EC 8-12 by [facility] tablet 13:32: daily. Medical 23 [facility] Missing or Yes hypothyroid 88ug Take [address] [facility] [address] Non-Formula 8-12 ism mcg by [facility] ry 13:32: mouth Medical Medication [address] ine 88 mcg. Take 1 tablet every Tuesday, Tuesday, Tuesday, , Tuesday and Tuesday and 1 and 1/2 tab every tuesday . allopurinol Yes 300mg QD Take [address] (ZYLOPRIM) 8-12 [facility] 300 MG 13:32: mouth Medical tablet 23 daily. [place] amLODIPine Yes 10mg QD Take [address] (NORVASC) 8-12 by [facility] 10 MG 13:32: daily. Medical tablet 23 [place] cloNIDine Yes .1mg Q.[id number] Take 0.[address] [facility] [address] HCl 8-12 [id number] mg by [facility] (CATAPRES) 13:32: 3D mouth 3 Medi jessy 0.1 MG 23 (three) Center tablet times daily . OMEGA3/DHA/ Yes 1{tbl} QD Take [address] EPA/FISH 8-12 tablet by [facility] OIL/VIT D3 13:32: mouth Medica l (FISH 23 daily. [place] OIL-VIT D3 ORAL) terazosin 0 Yes 5mg QD Take [address] [facility] (HYTRIN) 5 8-12 by mouth [facility] MG capsule 13:32: nightly. Med ical 23 [place] gabapentin 0 Yes 600mg Q.[id number] Take [address] [facility] [address] (NEURONTIN) 8-12 [id number] mg by [facility] 600 MG 13:32: 3D mouth 3 Medical tablet 23 (three) Center times daily . traMADol Yes 50mg QD Take [address] [facility] [address] (ULTRAM) 50 8-12 by mouth [facility] mg tablet 13:32: daily . Medic al 23 [facility] aspirin 81 2019-0 Yes 81mg QD Take [address] MG EC 8-12 by mouth [facility] tablet 13:32: daily. Medical 23 Center Missing or 2019-0 Yes hypothyroid 88ug Take [address] Non-Formula 8-12 ism mcg by [facility] 13:32: mouth Medical Medication [address] in[facility] 88 mcg. Take 1 tablet every Tuesday, Tuesday, Tuesday, , Tuesday and Tuesday and 1 and 1/2 tab every tuesday . Aspirin 81 2018-0 Yes 81mg Take 1 [facility] MG oral Tab 3-15 (one) [facility] 00:00: tablet by 00 mouth daily Aspirin 81 2018-0 Yes 81mg Take 1 [facility] MG oral Tab 3-15 (one) [facility] 00:00: tablet by 00 mouth daily Aspirin 81 2018-0 Yes 81mg Take 1 [facility] MG oral Tab 3-15 (one) [facility] 00:00: tablet by 00 mouth daily Aspirin 81 2018-0 Yes 81mg Take 1 [facility] MG oral Tab 3-15 (one) [facility] 00:00: tablet by - 00 mouth Externa daily l Aspirin 81 2018-0 Yes 81mg Take 1 [facility] MG oral Tab 3-15 (one) [facility] 00:00: tablet by - 00 mouth Externa daily l Aspirin 81 2018-0 Yes 81mg Take 1 [facility] MG oral Tab 3-15 (one) [facility] 00:00: tablet by - 00 mouth Externa daily l Aspirin 81 2018-0 Yes 81mg Take 1 [facility] MG oral Tab 3-15 (one) [facility] 00:00: tablet by - 00 mouth Externa daily l Aspirin 81 2018-0 Yes 81mg Take 1 [facility] MG oral Tab 3-15 (one) [facility] 00:00: tablet by - 00 mouth Externa daily l Aspirin 81 2018-0 Yes 81mg Take 1 [facility] MG oral Tab 3-15 (one) [facility] 00:00: tablet by 00 mouth daily Aspirin 81 2018-0 Yes 81mg Take 1 [facility] MG oral Tab 3-15 (one) [facility] 00:00: tablet by - 00 mouth Externa daily l Aspirin 81 2018-0 Yes 81mg Take 1 [facility] MG oral Tab 3-15 (one) [facility] 00:00: tablet by - 00 mouth Externa daily l Aspirin 81 2018-0 Yes 81mg Take 1 [facility] MG oral Tab 3-15 (one) [facility] 00:00: tablet by 00 mouth daily Immunizations Ordered Immunization Filled Immunization Date Status Commen ts Source Name Name Shingles IM 2022-08-03 Completed Crystal [facility] (Shingrix) 00:00:00 - External Shingles IM 2022-08-03 Completed Crystal [facility] (Shingrix) 00:00:00 - External Shingles IM 2022-08-03 Completed Crystal [facility] (Shingrix) 00:00:00 - External COVID-19 BIVALENT 2022-02-19 Completed Crystal [facility] BOOSTER VACCINE 00:00:00 - Externa l MODERNA COVID-19 BIVALENT 2022-02-19 Completed Crystal [facility] BOOSTER VACCINE 00:00:00 - Externa l MODERNA COVID-19 BIVALENT 2022-02-19 Completed Crystal [facility] BOOSTER VACCINE 00:00:00 - Externa l MODERNA COVID-19 BIVALENT 2022-02-19 Completed Crystal [facility] BOOSTER VACCINE 00:00:00 - Externa l MODERNA COVID-19 BIVALENT 2022-02-19 Completed Crystal [facility] BOOSTER VACCINE 00:00:00 - Externa l MODERNA COVID-19 BIVALENT 2022-02-19 Completed Crystal [facility] VACCINE MODERNA 00:00:00 - Externa l COVID-19 BIVALENT 2022-02-19 Completed Crystal [facility] VACCINE MODERNA 00:00:00 - Externa l Influenza Virus 2022-01-21 Completed Crystal [facility] Vaccine, 00:00:00 - External Quadrivalent, High Dose, Age 65 And Up Influenza Virus 2022-01-21 Completed Crystal Reyes [facility] Vaccine, 00:00:00 - External Quadrivalent, High Dose, Age 65 And Up Influenza Virus 2022-01-21 Completed Crystal Reyes [facility] Vaccine, 00:00:00 - External Quadrivalent, High Dose, Age 65 And Up Influenza Virus 2022-01-21 Completed Crystal Reyes [facility] Vaccine, 00:00:00 - External Quadrivalent, High Dose, Age 65 And Up Influenza Virus 2022-01-21 Completed Crystal Se [facility] Vaccine, 00:00:00 - External Quadrivalent, High Dose, Age 65 And Up Influenza Virus 2022-01-21 Completed Crystal Se [facility] Vaccine, 00:00:00 - External Quadrivalent, High Dose, Age 65 And Up Influenza Virus 2022-01-21 Completed Crystal Se [facility] Vaccine, 00:00:00 - External Quadrivalent, High Dose, Age 65 And Up Influenza Virus 2021-03-03 Completed Crystal Se [facility] Vaccine, 00:00:00 Quadrivalent, High Dose, Age 65 And Up Influenza Virus 2021-03-03 Completed Crystal [facility] Vaccine, 00:00:00 Quadrivalent, High Dose, Age 65 And Up Influenza Virus 2021-03-03 Completed Crystal [facility] Vaccine, 00:00:00 Quadrivalent, High Dose, Age 65 And Up Influenza Virus 2021-03-03 Completed Crystal [facility] Vaccine, 00:00:00 Quadrivalent, High Dose, Age 65 And Up Influenza Virus 2021-03-03 Completed Crystal [facility] Vaccine, 00:00:00 - External Quadrivalent, High Dose, Age 65 And Up Influenza Virus 2021-03-03 Completed Crystal Se [facility] Vaccine, 00:00:00 - External Quadrivalent, High Dose, Age 65 And Up Influenza Virus 2021-03-03 Completed Crystal Se [facility] Vaccine, 00:00:00 - External Quadrivalent, High Dose, Age 65 And Up Influenza Virus 2021-03-03 Completed Crystal Se [facility] Vaccine, 00:00:00 - External Quadrivalent, High Dose, Age 65 And Up Influenza Virus 2021-03-03 Completed Crystal Se [facility] Vaccine, 00:00:00 - External Quadrivalent, High Dose, Age 65 And Up Influenza Virus 2021-03-03 Completed Crystal Se [facility] Vaccine, 00:00:00 - External Quadrivalent, High Dose, Age 65 And Up Influenza Virus 2021-03-03 Completed Crystal [facility] Vaccine, 00:00:00 - External Quadrivalent, High Dose, Age 65 And Up Covid-19 Vaccine 2020-07-07 Completed Crystal narvaez (Moderna), Mrna-lnp, 00:00:00 Reddy Protein, Pf, 100 Mcg/0.5ml,IM Covid-19 Vaccine 2020-07-07 Completed Crystal narvaez (Moderna), Mrna-lnp, 00:00:00 Reddy Protein, Pf, 100 Mcg/0.5ml,IM Covid-19 Vaccine 2020-07-07 Completed Crystal narvaez Moderna (Spikevax), 00:00:00 Mrna-lnp, Reddy Protein, Pf Covid-19 Vaccine 2020-07-07 Completed Crystal narvaez Moderna (Spikevax), 00:00:00 Mrna-lnp, Reddy Protein, Pf Covid-19 Vaccine 2020-07-07 Completed Crystal narvaez Moderna (Spikevax), 00:00:00 - Ext ernal Mrna-lnp, Reddy Protein, Pf Covid-19 Vaccine 2020-07-07 Completed Crystal narvaez Moderna (Spikevax), 00:00:00 - Ext ernal Mrna-lnp, Reddy Protein, Pf Covid-19 Vaccine 2020-07-07 Completed Crystal narvaez Moderna (Spikevax), 00:00:00 - Ext ernal Mrna-lnp, Reddy Protein, Pf Covid-19 Vaccine 2020-07-07 Completed Crystal narvaez Moderna (Spikevax), 00:00:00 - Ext ernal Mrna-lnp, Reddy Protein, Pf Covid-19 Vaccine 2020-07-07 Completed Crystal narvaez Moderna (Spikevax), 00:00:00 - Ext ernal Mrna-lnp, Reddy Protein, Pf Covid-19 Vaccine 2020-07-07 Completed Crystal narvaez Moderna (Spikevax), 00:00:00 - Ext ernal Mrna-lnp, Reddy Protein, Pf Covid-19 Vaccine 2020-07-07 Completed Crystal narvaez Moderna (Spikevax), 00:00:00 - Ext ernal Mrna-lnp, Reddy Protein, Pf Covid-19 Vaccine 2020-07-07 Completed Crystal narvaez (Moderna), Mrna-lnp, 00:00:00 Reddy Protein, Pf, 100 Mcg/0.5ml,IM Covid-19 Vaccine 2020-06-09 Completed Crystal narvaez (Moderna), Mrna-lnp, 00:00:00 Reddy Protein, Pf, 100 Mcg/0.5ml,IM Covid-19 Vaccine 2020-06-09 Completed Crystal narvaez (Moderna), Mrna-lnp, 00:00:00 Reddy Protein, Pf, 100 Mcg/0.5ml,IM Covid-19 Vaccine 2020-06-09 Completed Crystal narvaez Moderna (Spikevax), 00:00:00 Mrna-lnp, Reddy Protein, Pf Covid-19 Vaccine 2020-06-09 Completed Crystal narvaez Moderna (Spikevax), 00:00:00 Mrna-lnp, Reddy Protein, Pf Covid-19 Vaccine 2020-06-09 Completed Crystal narvaez Moderna (Spikevax), 00:00:00 - Ext ernal Mrna-lnp, Reddy Protein, Pf Covid-19 Vaccine 2020-06-09 Completed Crystal narvaez Moderna (Spikevax), 00:00:00 - Ext ernal Mrna-lnp, Reddy Protein, Pf Covid-19 Vaccine 2020-06-09 Completed Crystal narvaez Moderna (Spikevax), 00:00:00 - Ext ernal Mrna-lnp, Reddy Protein, Pf Covid-19 Vaccine 2020-06-09 Completed Crystal narvaez Moderna (Spikevax), 00:00:00 - Ext ernal Mrna-lnp, Reddy Protein, Pf Covid-19 Vaccine 2020-06-09 Completed Crystal narvaez Moderna (Spikevax), 00:00:00 - Ext ernal Mrna-lnp, Reddy Protein, Pf Covid-19 Vaccine 2020-06-09 Completed Crystal narvaez Moderna (Spikevax), 00:00:00 - Ext ernal Mrna-lnp, Reddy Protein, Pf Covid-19 Vaccine 2020-06-09 Completed Crystal narvaez Moderna (Spikevax), 00:00:00 - Ext ernal Mrna-lnp, Reddy Protein, Pf Covid-19 Vaccine 2020-06-09 Completed Crystal narvaez (Moderna), Mrna-lnp, 00:00:00 Reddy Protein, Pf, 100 Mcg/0.5ml,IM COVID-19 BIVALENT 2020-06-06 Completed Crystal [facility] VACCINE MODERNA 00:00:00 - Externa l COVID-19 BIVALENT 2020-06-06 Completed Crystal [facility] VACCINE MODERNA 00:00:00 - Externa l Influenza Virus 2019-12-27 Completed Crystal [facility] Vaccine, 00:00:00 Quadrivalent, High Dose, Age 65 And Up Influenza Virus 2019-12-27 Completed Crystal [facility] Vaccine, 00:00:00 Quadrivalent, High Dose, Age 65 And Up Influenza Virus 2019-12-27 Completed Crystal [facility] Vaccine, 00:00:00 Quadrivalent, High Dose, Age 65 And Up Influenza Virus 2019-12-27 Completed Crystal [facility] Vaccine, 00:00:00 Quadrivalent, High Dose, Age 65 And Up Influenza Virus 2019-12-27 Completed Crystal Se [facility] Vaccine, 00:00:00 - External Quadrivalent, High Dose, Age 65 And Up Influenza Virus 2019-12-27 Completed Crystal Se [facility] Vaccine, 00:00:00 - External Quadrivalent, High Dose, Age 65 And Up Influenza Virus 2019-12-27 Completed Crystal Se [facility] Vaccine, 00:00:00 - External Quadrivalent, High Dose, Age 65 And Up Influenza Virus 2019-12-27 Completed Crystal Se [facility] Vaccine, 00:00:00 - External Quadrivalent, High Dose, Age 65 And Up Influenza Virus 2019-12-27 Completed Crystal Se [facility] Vaccine, 00:00:00 - External Quadrivalent, High Dose, Age 65 And Up Influenza Virus 2019-12-27 Completed Crystal [facility] Vaccine, 00:00:00 - External Quadrivalent, High Dose, Age 65 And Up Influenza Virus 2019-12-27 Completed Crystal [facility] Vaccine, 00:00:00 - External Quadrivalent, High Dose, Age 65 And Up Influenza Virus 2019-12-27 Completed Crystal Se [facility] Vaccine, 00:00:00 Quadrivalent, High Dose, Age 65 And Up Influenza Virus 2019-01-16 Completed Crystal Se [facility] Vaccine, High Dose, 00:00:00 Age 65 And Up Influenza Virus 2019-01-16 Completed Crystal Se [facility] Vaccine, High Dose, 00:00:00 Age 65 And Up Influenza Virus 2019-01-16 Completed Crystal Se [facility] Vaccine, High Dose, 00:00:00 Age 65 And Up Influenza Virus 2019-01-16 Completed Crystal Se [facility] Vaccine, High Dose, 00:00:00 Age 65 And Up Influenza Virus 2019-01-16 Completed Crystal Se [facility] Vaccine, High Dose, 00:00:00 - Ext ernal Age 65 And Up Influenza Virus 2019-01-16 Completed Crystal Se [facility] Vaccine, High Dose, 00:00:00 - Ext ernal Age 65 And Up Influenza Virus 2019-01-16 Completed Crystal Se [facility] Vaccine, High Dose, 00:00:00 - Ext ernal Age 65 And Up Influenza Virus 2019-01-16 Completed Crystal Se [facility] Vaccine, High Dose, 00:00:00 - Ext ernal Age 65 And Up Influenza Virus 2019-01-16 Completed Crystal Se [facility] Vaccine, High Dose, 00:00:00 - Ext ernal Age 65 And Up Influenza Virus 2019-01-16 Completed Crystal Se [facility] Vaccine, High Dose, 00:00:00 - Ext ernal Age 65 And Up Influenza Nasal, 2019-01-16 Completed Crystal S [facility] Unspecified 00:00:00 - External Formulation Influenza Virus 2019-01-16 Completed Crystal Se [facility] Vaccine, High Dose, 00:00:00 - Ext ernal Age 65 And Up Influenza Nasal, 2019-01-16 Completed Crystal S [facility] Unspecified 00:00:00 - External Formulation Influenza Virus 2019-01-16 Completed Crystal Se [facility] Vaccine, High Dose, 00:00:00 Age 65 And Up Influenza Virus 2017-12-26 Completed Crystal Se [facility] Vaccine, High Dose, 00:00:00 Age 65 And Up Influenza Virus 2017-12-26 Completed Crystal Se [facility] Vaccine, High Dose, 00:00:00 Age 65 And Up Influenza Virus 2017-12-26 Completed Crystal Se [facility] Vaccine, High Dose, 00:00:00 Age 65 And Up Influenza Virus 2017-12-26 Completed Crystal Se [facility] Vaccine, High Dose, 00:00:00 Age 65 And Up Influenza Virus 2017-12-26 Completed Crystal Se [facility] Vaccine, High Dose, 00:00:00 - Ext ernal Age 65 And Up Influenza Virus 2017-12-26 Completed Crystal Se [facility] Vaccine, High Dose, 00:00:00 - Ext ernal Age 65 And Up Influenza Virus 2017-12-26 Completed Crystal Se [facility] Vaccine, High Dose, 00:00:00 - Ext ernal Age 65 And Up Influenza Virus 2017-12-26 Completed Crystal Se [facility] Vaccine, High Dose, 00:00:00 - Ext ernal Age 65 And Up Influenza Virus 2017-12-26 Completed Crystal Se [facility] Vaccine, High Dose, 00:00:00 - Ext ernal Age 65 And Up Influenza Virus 2017-12-26 Completed Crystal Se [facility] Vaccine, High Dose, 00:00:00 - Ext ernal Age 65 And Up Influenza Virus 2017-12-26 Completed Crystal Se [facility] Vaccine, High Dose, 00:00:00 - Ext ernal Age 65 And Up Influenza Virus 2017-12-26 Completed Crystal Se [facility] Vaccine, High Dose, 00:00:00 Age 65 And Up Influenza Virus 2017-01-04 Completed Crystal Se [facility] Vaccine, High Dose, 00:00:00 Age 65 And Up Influenza Virus 2017-01-04 Completed Crystal Se [facility] Vaccine, High Dose, 00:00:00 Age 65 And Up Influenza Virus 2017-01-04 Completed Crystal [facility] Vaccine, High Dose, 00:00:00 Age 65 And Up Influenza Virus 2017-01-04 Completed Crystal Se [facility] Vaccine, High Dose, 00:00:00 Age 65 And Up Influenza Virus 2017-01-04 Completed Crystal Se [facility] Vaccine, High Dose, 00:00:00 - Ext ernal Age 65 And Up Influenza Virus 2017-01-04 Completed Crystal [facility] Vaccine, High Dose, 00:00:00 - Ext ernal Age 65 And Up Influenza Virus 2017-01-04 Completed Crystal [facility] Vaccine, High Dose, 00:00:00 - Ext ernal Age 65 And Up Influenza Virus 2017-01-04 Completed Crystal Se [facility] Vaccine, High Dose, 00:00:00 - Ext ernal Age 65 And Up Influenza Virus 2017-01-04 Completed Crystal Se [facility] Vaccine, High Dose, 00:00:00 - Ext ernal Age 65 And Up Influenza Virus 2017-01-04 Completed Crystal [facility] Vaccine, High Dose, 00:00:00 - Ext ernal Age 65 And Up Influenza Virus 2017-01-04 Completed Crystal [facility] Vaccine, High Dose, 00:00:00 - Ext ernal Age 65 And Up Influenza Virus 2017-01-04 Completed Crystal [facility] Vaccine, High Dose, 00:00:00 Age 65 And Up Pneumococcal Vaccine, 2016-05-20 Completed Payam sey [facility] Conjugate 13 00:00:00 Pneumococcal Vaccine, 2016-05-20 Completed Payam sey [facility] Conjugate 13 00:00:00 Pneumococcal Vaccine, 2016-05-20 Completed Payam sey [facility] Conjugate 13 00:00:00 Pneumococcal Vaccine, 2016-05-20 Completed Payam sey [facility] Conjugate 13 00:00:00 Pneumococcal Vaccine, 2016-05-20 Completed Payam sey [facility] Conjugate 13 00:00:00 - External Pneumococcal Vaccine, 2016-05-20 Completed Payam sey [facility] Conjugate 13 00:00:00 - External Pneumococcal Vaccine, 2016-05-20 Completed Paaym sey [facility] Conjugate 13 00:00:00 - External Pneumococcal Vaccine, 2016-05-20 Completed Payam sey [facility] Conjugate 13 00:00:00 - External Pneumococcal Vaccine, 2016-05-20 Completed Payam sey [facility] Conjugate 13 00:00:00 - External Pneumococcal Vaccine, 2016-05-20 Completed Payam sey [facility] Conjugate 13 00:00:00 - External Pneumococcal Vaccine, 2016-05-20 Completed Payam sey [facility] Conjugate 13 00:00:00 - External Pneumococcal Vaccine, 2016-05-20 Completed Payam sey [facility] Conjugate 13 00:00:00 Influenza Virus 2016-01-08 Completed Crystal Se [facility] Vaccine, High Dose, 00:00:00 Age 65 And Up Influenza Virus 2016-01-08 Completed Crystal [facility] Vaccine, High Dose, 00:00:00 Age 65 And Up Influenza Virus 2016-01-08 Completed Crystal [facility] Vaccine, High Dose, 00:00:00 Age 65 And Up Influenza Virus 2016-01-08 Completed Crystal Se [facility] Vaccine, High Dose, 00:00:00 Age 65 And Up Influenza Virus 2016-01-08 Completed Crystal Se [facility] Vaccine, High Dose, 00:00:00 - Ext ernal Age 65 And Up Influenza Virus 2016-01-08 Completed Crystal Se [facility] Vaccine, High Dose, 00:00:00 - Ext ernal Age 65 And Up Influenza Virus 2016-01-08 Completed Crystal Se [facility] Vaccine, High Dose, 00:00:00 - Ext ernal Age 65 And Up Influenza Virus 2016-01-08 Completed Crystal Se [facility] Vaccine, High Dose, 00:00:00 - Ext ernal Age 65 And Up Influenza Virus 2016-01-08 Completed Crystal Se [facility] Vaccine, High Dose, 00:00:00 - Ext ernal Age 65 And Up Influenza Virus 2016-01-08 Completed Crystal Se [facility] Vaccine, High Dose, 00:00:00 - Ext ernal Age 65 And Up Influenza Virus 2016-01-08 Completed Crystal Se [facility] Vaccine, High Dose, 00:00:00 - Ext ernal Age 65 And Up Influenza Virus 2016-01-08 Completed Crystal Se [facility] Vaccine, High Dose, 00:00:00 Age 65 And Up Pneumococcal Vaccine, 2015-01-22 Completed Payam sey [facility] Polysaccharide 00:00:00 Influenza Virus 2015-01-22 Completed Crystal Se [facility] Vaccine, High Dose, 00:00:00 Age 65 And Up Pneumococcal Vaccine, 2015-01-22 Completed Payam sey [facility] Polysaccharide 00:00:00 Influenza Virus 2015-01-22 Completed Crystal Se [facility] Vaccine, High Dose, 00:00:00 Age 65 And Up Pneumococcal Vaccine, 2015-01-22 Completed Payam sey [facility] Polysaccharide 00:00:00 Influenza Virus 2015-01-22 Completed Crystal Se [facility] Vaccine, High Dose, 00:00:00 Age 65 And Up Pneumococcal Vaccine, 2015-01-22 Completed Payam sey [facility] Polysaccharide 00:00:00 Influenza Virus 2015-01-22 Completed Crystal Se [facility] Vaccine, High Dose, 00:00:00 Age 65 And Up Pneumococcal Vaccine, 2015-01-22 Completed Payam sey [facility] Polysaccharide 00:00:00 - External Influenza Virus 2015-01-22 Completed Crystal Se [facility] Vaccine, High Dose, 00:00:00 - Ext ernal Age 65 And Up Pneumococcal Vaccine, 2015-01-22 Completed Payam sey [facility] Polysaccharide 00:00:00 - External Influenza Virus 2015-01-22 Completed Crystal Se [facility] Vaccine, High Dose, 00:00:00 - Ext ernal Age 65 And Up Pneumococcal Vaccine, 2015-01-22 Completed Payam sey [facility] Polysaccharide 00:00:00 - External Influenza Virus 2015-01-22 Completed Crystal Se [facility] Vaccine, High Dose, 00:00:00 - Ext ernal Age 65 And Up Pneumococcal Vaccine, 2015-01-22 Completed Payam sey [facility] Polysaccharide 00:00:00 - External Influenza Virus 2015-01-22 Completed Crystal Se [facility] Vaccine, High Dose, 00:00:00 - Ext ernal Age 65 And Up Pneumococcal Vaccine, 2015-01-22 Completed Payam sey [facility] Polysaccharide 00:00:00 - External Influenza Virus 2015-01-22 Completed Crystal Se [facility] Vaccine, High Dose, 00:00:00 - Ext ernal Age 65 And Up Pneumococcal Vaccine, 2015-01-22 Completed Payam sey [facility] Polysaccharide 00:00:00 - External Influenza Virus 2015-01-22 Completed Crystal Se [facility] Vaccine, High Dose, 00:00:00 - Ext ernal Age 65 And Up Pneumococcal Vaccine, 2015-01-22 Completed Payam sey [facility] Conjugate 7 00:00:00 - External Pneumococcal Vaccine, 2015-01-22 Completed Payam sey [facility] Polysaccharide 00:00:00 - External Influenza Virus 2015-01-22 Completed Crystal Se [facility] Vaccine, High Dose, 00:00:00 - Ext ernal Age 65 And Up Pneumococcal Vaccine, 2015-01-22 Completed Payam sey [facility] Conjugate 7 00:00:00 - External Pneumococcal Vaccine, 2015-01-22 Completed Payam sey [facility] Polysaccharide 00:00:00 Influenza Virus 2015-01-22 Completed Crystal Se [facility] Vaccine, High Dose, 00:00:00 Age 65 And Up Influenza Virus 2014-02-08 Completed Crystal Se [facility]bold Vaccine, age 6 months 00:00:00 and up Influenza Virus 2014-02-08 Completed Crystal Se [facility]bold Vaccine, age 6 months 00:00:00 and up Influenza Virus 2014-02-08 Completed Crystal Se [facility]bold Vaccine, age 6 months 00:00:00 and up Influenza Virus 2014-02-08 Completed Crystal Se [facility]bold Vaccine, age 6 months 00:00:00 and up Influenza Virus 2014-02-08 Completed Crystal Se ybold Vaccine, age 6 months 00:00:00 - E xternal and up Influenza Virus 2014-02-08 Completed Crystal Se ybold Vaccine, age 6 months 00:00:00 - E xternal and up Influenza Virus 2014-02-08 Completed Crystal Se [facility]bold Vaccine, age 6 months 00:00:00 - E xternal and up Influenza Virus 2014-02-08 Completed Crystal hunter Vaccine, age 6 months 00:00:00 - E xternal and up Influenza Virus 2014-02-08 Completed Crystal hunter Vaccine, age 6 months 00:00:00 - E xternal and up Influenza Virus 2014-02-08 Completed Crystal hunter Vaccine, age 6 months 00:00:00 - E xternal and up Influenza Virus 2014-02-08 Completed Crystal hunter Vaccine, age 6 months 00:00:00 - E xternal and up Influenza Virus 2014-02-08 Completed Crystal hunter Vaccine, age 6 months 00:00:00 and up Vital Signs Vital Name Observation Time Observation Value Comments Source Systolic blood 2022-09-06 128 mm[Hg] Crystal Seybol d pressure 15:03:00 - External Diastolic blood 2022-09-06 72 mm[Hg] Crystal Gandhio ld pressure 15:03:00 - External Heart rate 2022-09-06 80 /min Crystal Whitley 14:28:00 - External Body temperature 2022-09-06 36.39 Kavita Crystal Gandhi old 14:28:00 - External Respiratory rate 2022-09-06 16 /min Crystal Gandhi old 14:28:00 - External Body weight 2022-09-06 63.231 kg Crystal Whitley 14:28:00 - External BMI 2022-09-06 20.00 kg/m2 Crystal Whitley 14:28:00 - External Systolic blood 2022-08-03 154 mm[Hg] Crystal Seybol d pressure 14:05:00 - External Diastolic blood 2022-08-03 76 mm[Hg] Crystal Gandhio ld pressure 14:05:00 - External Heart rate 2022-08-03 88 /min Crystal Gandhiold 14:05:00 - External Body temperature 2022-08-03 36.33 Kavita Crystal Gandhi old 14:05:00 - External Respiratory rate 2022-08-03 16 /min Crystal Gandhi old 14:05:00 - External Body weight 2022-08-03 62.823 kg Crystal Whitley 14:05:00 - External BMI 2022-08-03 19.87 kg/m2 Crystal Seybold 14:05:00 - External HEIGHT 2022-05-06 177.8 cm 07:18:00 WEIGHT 2022-05-06 65.318 kg 07:18:00 HEIGHT 2022-05-06 177.8 cm 07:18:00 WEIGHT 2022-05-06 65.318 kg 07:18:00 Systolic blood 2022-02-19 164 mm[Hg] Crystal Seybol d pressure 19:55:00 - External Diastolic blood 2022-02-19 70 mm[Hg] Crystal Seybo ld pressure 19:55:00 - External Heart rate 2022-02-19 88 /min Crystal Seybold 19:18:00 - External Body temperature 2022-02-19 36.06 Kavita Crystal Reyesyb old 19:18:00 - External Respiratory rate 2022-02-19 18 /min Crystal Reyesyb old 19:18:00 - External Body height 2022-02-19 177.8 cm Crystal Seybold 19:18:00 - External Body weight 2022-02-19 67.132 kg w/shoes Crystal Seybold 19:18:00 - External BMI 2022-02-19 21.24 kg/m2 Crystal Seybold 19:18:00 - External Oxygen saturation 2022-02-19 99 /min Crystal street in Arterial blood 19:18:00 - External by Pulse oximetry Systolic blood 2021-06-01 122 mm[Hg] Crystal Semelanieol d pressure 18:51:00 Diastolic blood 2021-06-01 64 mm[Hg] Crystal Seybo ld pressure 18:51:00 Heart rate 2021-06-01 68 /min Crystal Seybold 18:51:00 Body temperature 2021-06-01 36.11 Kavita Crystal Reyesyb old 18:51:00 Respiratory rate 2021-06-01 16 /min Crystal Reyesyb old 18:51:00 Body weight 2021-06-01 64.774 kg Crystal Seybold 18:51:00 BMI 2021-06-01 20.49 kg/m2 Crystal Seybold 18:51:00 Systolic blood 2021-05-05 185 mm[Hg] per pt was told Crystal Sey bold pressure 17:33:00 by md to go to er if b/p is still high tmrw. Diastolic blood 2021-05-05 107 mm[Hg] per pt was told Crystal Se ybold pressure 17:33:00 by md to go to er if b/p is still high tmrw. Heart rate 2021-05-05 63 /min Crystal Reyesybold 17:33:00 Body temperature 2021-05-05 36.56 Kavita Crystal Gandhi old 16:47:00 Respiratory rate 2021-05-05 17 /min Crystal Gandhi old 16:47:00 Body height 2021-05-05 177.8 cm Crystal Reyesybold 16:47:00 Body weight 2021-05-05 62.869 kg Crystal Reyesybold 16:47:00 BMI 2021-05-05 19.89 kg/m2 Crystal Reyesybold 16:47:00 Oxygen saturation 2021-05-05 100 /min Crystal Spann bold in Arterial blood 16:47:00 by Pulse oximetry Systolic blood 2021-04-28 138 mm[Hg] Crystal Gandhiol d pressure 16:51:00 Diastolic blood 2021-04-28 70 mm[Hg] Crystal Gandhio ld pressure 16:51:00 Heart rate 2021-04-28 98 /min Crystal Reyesybold 16:51:00 Respiratory rate 2021-04-28 16 /min Crystal Gandhi old 16:51:00 Body weight 2021-04-28 63.504 kg Crystal Reyesybold 16:51:00 BMI 2021-04-28 20.09 kg/m2 Crystal Reyesybold 16:51:00 Systolic blood 2022-05-07 184 mm[Hg] [facility] 07[facility]00 [facility] Diastolic blood 2022-05-07 86 mm[Hg] [facility] pressure 07:45[facility]00 [facility] Center Heart rate 2022-05-07 60 /min [facility] 07:45[facility] Body temperature 2022-05-[address] [facility] Respiratory rate 2022-05-07 18 /min [facility] Oxygen saturation 2022-05-07 100 /min [facility] Arterial blood 07:45:00 Medical Ce nter by Pulse oximetry Body height 2022-05-06 177.8 cm [facility] 07:18:00 [facility] Body weight 2022-05-06 65.318 kg [facility] 07:18:00 [facility] BMI 2022-05-06 20.66 kg/m2 [facility] 07:18:00 [facility] Procedures Procedure Date / Time Performed Performing Clinician Sour e URINE PROTEIN 2022-05-07 08:00:00 [facility] ELECTROPHORESIS, [facility] RPR 2022-05-07 05:26:00 [facility] RHEUMATOID FACTOR AB, 2022-05-07 05:26:00 [facility] REFLEX TO TITER [facility] SERUM IMMUNOTYPING 2022-05-07 05:26:00 [facility] ANTI-NUCLEAR ANTIBODY 2022-05-07 05:26:00 [facility] ([facility]) [facility] HEMOGLOBIN AND 2022-05-07 05:26:00 [facility] BASIC METABOLIC PANEL 2022-05-07 05:26:00 [facility] CYSTATIN C WITH EGFR 2022-05-07 05:26:00 [facility] PROTEIN ELECTROPHORESIS, 2022-05-07 05:26:00 [facility] PTH, INTACT 2022-05-07 05:26:00 [facility] VITAMIN D, 25-HYDROXY 2022-05-07 05:26:00 [facility] XR CHEST 1 VIEW PORTABLE 2022-05-07 04:47:00 [facility] / BEDSIDE [facility] US RENAL WITH DOPPLER 2022-05-07 01:05:00 [facility] PROTEIN, RANDOM URINE 2022-05-06 17:19:00 [facility] CREATININE, RANDOM URINE 2022-05-06 17:19:00 Marya Gallegos [facility] POCT-GLUCOSE METER 2022-05-06 16:27:00 [facility] XR CHEST 1 VIEW PORTABLE 2022-05-06 13:28:00 [facility] / BEDSIDE [facility] Center INSERTION, CARDIAC 2022-05-06 10:46:00 [facility] PACEMAKER, DUAL LEAD Medical Zachary ter POCT-GLUCOSE METER 2022-05-06 07:54:00 [facility] CARDIAC CATH REPORT - 2022-05-06 00:00:00 Provider, Default [facility] St kes SCAN Scanning [facility] EKG-SCANNED 2022-05-06 00:00:00 [facility] ARRYTHMIA IMPLANT REPORT 2022-05-06 00:00:00 Provider, Default [place] [facility] kes - SCAN Scanning [facility] Plan of Care Planned Activity Planned Date Details Comments Source Future Scheduled 2022-04-[address] [facility] 00:00:00 (12+) [code = [facility] Center DEPRESSION SCREENING (12+)] Future Scheduled 2022-04-04 FALLS RISK SCREENING [facility] 00:00:00 [code = FALLS RISK Medical C enter SCREENING] Future Scheduled 2022-04-[address] [facility] 00:00:00 (12+) [code = [facility] Center DEPRESSION SCREENING (12+)] Future Scheduled 2022-04-04 FALLS RISK SCREENING [facility] 00:00:00 [code = FALLS RISK Medical C enter SCREENING] Future Scheduled 2022-04-[address] [facility] 00:00:00 (12+) [code = [facility] Center DEPRESSION SCREENING (12+)] Future Scheduled 2022-04-04 FALLS RISK SCREENING [facility] 00:00:00 [code = FALLS RISK Medical C enter SCREENING] Future Scheduled 2020-12-07 COVID-19 VACCINE (3 - [facility] 00[facility]:00 Booster for [facility] series) [code = COVID-19 VACCINE (3 - Booster for [employer] series)] Future Scheduled 2020-12-07 COVID-19 VACCINE (3 - [facility] 00:[facility]:00 Booster for [facility] series) [code = COVID-19 VACCINE (3 - Booster for Modern[employer] series)] Future Scheduled 2020-09-01 COVID-19 VACCINE (3 - [facility] 00:00:00 Booster for [facility] series) [code = COVID-19 VACCINE (3 - Booster for [employer] series)] Future Scheduled 2019-09-19 Urine screening for [facility] 00:00:00 protein (procedure) Medical Center [code = 759410365] Future Scheduled 2019-09-19 Urine screening for [facility] 00:00:00 protein (procedure) Medical Center [code = 272253756] Future Scheduled 2019-09-19 Urine screening for [facility] 00:00:00 protein (procedure) Medical Center [code = 925075928] Future Scheduled 2019-04-[address] [facility] 00:00:00 WELLNESS (YEAR 2 or Medical Center FIRST YEAR if no IPPE) [code = MEDICARE ANNUAL WELLNESS (YEAR 2 or FIRST YEAR if no IPPE)] Future Scheduled 2019-04-[address] [facility] 00:00:00 WELLNESS (YEAR 2 or Medical Center FIRST YEAR if no IPPE) [code = MEDICARE ANNUAL WELLNESS (YEAR 2 or FIRST YEAR if no IPPE)] Future Scheduled 2019-04-[address] [facility] 00:00:00 WELLNESS (YEAR 2 or Medical Center FIRST YEAR if no IPPE) [code = MEDICARE ANNUAL WELLNESS (YEAR 2 or FIRST YEAR if no IPPE)] Future Scheduled 2019-03-[address] [facility] 00:00:00 measurement (procedure) [facility] [code = 65760308] Future Scheduled 2019-03-[address] [facility] 00:00:00 measurement (procedure) [facility] [code = 25656200] Future Scheduled 2019-03-[address] [facility] 00:00:00 measurement (procedure) [facility] [code = 53354365] Future Scheduled [address] [facility] 00:00:00 aneurysm screening Medical C enter (procedure) [code = 237055261] Future Scheduled [address] [facility] 00:00:00 aneurysm screening Medical C enter (procedure) [code = 809044256] Future Scheduled [address] [facility] 00:00:00 aneurysm screening Medical C enter (procedure) [code = 612267370] Future Scheduled 1999 SHINGLES VACCINES ([address] [facility] 00:00:00 2) [code = SHINGLES Medical Center VACCINES (1 of 2)] Future Scheduled 1999 SHINGLES VACCINES ([address] [facility] 00:00:00 2) [code = SHINGLES Medical Center VACCINES (1 of 2)] Future Scheduled 1999 SHINGLES VACCINES ([address] [facility] 00:00:00 2) [code = SHINGLES [facility] Center VACCINES (1 of 2)] Future Scheduled 1968-02-28 DTAP/TDAP/TD VACCINES [facility] 00:00:00 (1 - Tdap) [code = Medical C enter DTAP/TDAP/TD VACCINES (1 - Tdap)] Future Scheduled 1968-02-28 DTAP/TDAP/TD VACCINES [facility] 00:00:00 (1 - Tdap) [code = Medical C enter DTAP/TDAP/TD VACCINES (1 - Tdap)] Future Scheduled 1968-02-28 DTAP/TDAP/TD VACCINES [facility] 00:00:00 (1 - Tdap) [code = Medical C enter DTAP/TDAP/TD VACCINES (1 - Tdap)] Future Scheduled 1967 HEPATITIS C SCRE[facility]ING [facility] 00:00:00 [code = HEPATITIS C Medical Center SCREENING] Future Scheduled 1967 HEPATITIS C SCRE[facility]ING [facility] 00:00:00 [code = HEPATITIS C Medical Center SCREENING] Future Scheduled 1967 HEPATITIS C SCRE[facility]ING [facility] 00:00:00 [code = HEPATITIS C Medical Center SCREENING] Future Scheduled [address] [facility] 00:00:00 Counseling and Medical Cente r Screening (12+) [code = Tobacco Cessation Counseling and Screening (12+)] Future Scheduled [address] [facility] 00:00:00 Counseling and Medical Cente r Screening (12+) [code = Tobacco Cessation Counseling and Screening (12+)] Future Scheduled [address] [facility] 00:00:00 Counseling and Medical Cente r Screening (12+) [code = Tobacco Cessation Counseling and Screening (12+)] Future Scheduled 1959 DIABETIC EYE EXAM [code [facility] 00:00:00 = DIABETIC EYE EXAM] Medical Center Future Scheduled [address] [facility] [facility] 00:[facility]:00 examination Medical Center (regime/therapy) [code = 090106408] Future Scheduled 1959 DIABETIC EYE EXAM [code [facility] 00:00:00 = DIABETIC EYE EXAM] Medical Center Future Scheduled [address] [facility] 00:00:00 examination Medical Center (regime/therapy) [code = 648338078] Future Scheduled 1959 DIABETIC EYE EXAM [code [facility] 00:00:00 = DIABETIC EYE EXAM] Medical Center Future Scheduled [address] [facility] 00:00:00 examination Medical Center (regime/therapy) [code = 148859650] Future Scheduled 1949 CT Colonography (combo) [facility] 00:00:00 [code = CT Colonography [facility] Center (combo)] Future Scheduled 1949 Screening for malignant [facility] 00:00:00 neoplasm of colon Medical Ce nter (procedure) [code = 390698643] Future Scheduled 1949 Screening for malignant [facility] 00:00:00 neoplasm of colon Medical Ce nter (procedure) [code = 511519513] Future Scheduled 1949 Screening for malignant [facility] 00:00:00 neoplasm of colon Medical Ce nter (procedure) [code = 407071647] Future Scheduled 1949 Screening for malignant [facility] 00:00:00 neoplasm of colon Medical Ce nter (procedure) [code = 982619252] Future Scheduled 1949 Sigmoidoscopy [code = [facility] 00:[facility]:00 Sigmoidoscopy] Medical Cente r Future Scheduled 1949 CT Colonography (combo) [facility] 00:00:00 [code = CT Colonography [facility] Center (combo)] Future Scheduled 1949 Screening for malignant [facility] 00:00:00 neoplasm of colon Medical Ce nter (procedure) [code = 536514384] Future Scheduled 1949 Screening for malignant [facility] 00:00:00 neoplasm of colon Medical Ce nter (procedure) [code = 305173647] Future Scheduled 1949 Screening for malignant [facility] 00:00:00 neoplasm of colon Medical Ce nter (procedure) [code = 627711311] Future Scheduled 1949 Screening for malignant [facility] 00:00:00 neoplasm of colon Medical Ce nter (procedure) [code = 835633242] Future Scheduled 1949 Sigmoidoscopy [code = [facility] 00:00:00 Sigmoidoscopy] Medical Cente r Future Scheduled 1949 CT Colonography (combo) [facility] 00:00:00 [code = CT Colonography [facility] Center (combo)] Future Scheduled 1949 Screening for malignant [facility] 00:00:00 neoplasm of colon Medical Ce nter (procedure) [code = 869678793] Future Scheduled 1949 Screening for malignant [facility] 00:00:00 neoplasm of colon Medical Ce nter (procedure) [code = 157598004] Future Scheduled 1949 Screening for malignant [facility] 00:00:00 neoplasm of colon Medical Ce nter (procedure) [code = 495357996] Future Scheduled 1949 Screening for malignant [facility] 00:00:00 neoplasm of colon Medical Ce nter (procedure) [code = 047387001] Future Scheduled 1949 Sigmoidoscopy [code = [facility] 00:00:00 Sigmoidoscopy] Medical Cente r Encounters Start End Encounter Admission Attending Care Care Encounter Source Date/Time Date/Time Type Type Clinicians Facility Department ID 2023-08-02 2023-08-02 Outpatient JAIDEN ZAPIEN [id number] [facility] 10:00:00 10:00:00 EYMICHELLE Se yblindy 2023-03-21 2023-03-21 Outpatient LING, CRYSTAL ZAPIEN [id number] [place] 09:30:00 09:30:00 JORGE Seybol d 2023-01-20 2023-01-20 Outpatient RIVERA-YUAN CRYSTAL ZAPIEN [id number] [place] 10:15:00 10:15:00 EYMICHELLE Se yblindy 2022-11-15 2022-11-15 Outpatient CRYSTAL ZAPIEN [id number] [place] 00:00:00 00:00:00 Seybol d 2022-11-12 2022-11-12 Outpatient JAIDEN ZAPIEN [id number] [place] 00:00:00 00:00:00 MICHELLE LOPEZ Se yblindy 2022-11-11 2022-11-11 Outpatient DECKER, CRYSTAL ZAPIEN [id number] [place] 00:00:00 00:00:00 PATRIA Seyb old 2022-10-15 2022-10-15 Outpatient DECKERCRYSTAL [id number] [place] 00:00:00 00:00:00 PATRIA Seyb old 2022-09-21 2022-09-21 Outpatient DECKER, CRYSTAL ZAPIEN [id number] [place] 00:00:00 00:00:00 PATRIA Seyb old 2022-09-20 2022-09-20 Outpatient CRYSTAL AGUAYO [id number] [place] 09:30:00 09:30:00 JORGE Seybol d 2022-09-13 2022-09-13 Outpatient DECKER, CRYSTAL ZAPIEN [id number] [place] 00:00:00 00:00:00 PATRIA Seyb old 2022-09-10 2022-09-10 Outpatient CRYSTAL ZAPIEN [id number] [place] 00:00:00 00:00:00 Seybol d 2022-09-06 2022-09-06 Outpatient DECKERCRYSTAL [id number] [place] 09:30:00 09:30:00 PATRIA Seyb old 2022-09-03 2022-09-03 Outpatient KALENCRYSTAL [id number] [place] 00:00:00 00:00:00 LAURA Seybol d 2022-08-23 2022-08-23 Outpatient RIVERAGaviYUAN ZAPIEN [id number] [place] 00:00:00 00:00:00 EY, MICHELLE Se ybold 2022-08-03 2022-08-03 Outpatient LAB47 CRYSTAL ZAPIEN [id number] [place] 10:15:00 10:15:00 Seybol d 2022-08-03 2022-08-03 Outpatient RIVERAGaviYUAN ZAPIEN [id number] [place] 09:00:00 09:00:00 EY, MICHELLE Se ybold 2022-08-03 2022-08-03 Outpatient RIVERA-YUAN ZAPIEN [id number] [place] 00:00:00 00:00:00 EY, MICHELLE Se ybold 2022-07-22 2022-07-22 Outpatient RIVERAGaviYUAN ZAPIEN [id number] [place] 00:00:00 00:00:00 EY, MICHELLE Se ybold 2022-06-11 2022-06-11 Outpatient CRYSTAL ZAPIEN [id number] [place] 14:00:00 14:00:00 Seybol d 2022-06-11 2022-06-11 Outpatient DECKERCRYSTAL [id number] [place] 00:00:00 00:00:00 PATRIA Seyb old 2022-06-02 2022-06-02 Outpatient CRYSTAL HIGUERA [id number] [place] 00:00:00 00:00:00 LAURA Seybol d 2022-06-01 2022-06-01 Outpatient PA, RENAL CRYSTAL ZAPIEN [id number] [place] 00:00:00 00:00:00 Seybol d 2022-05-28 2022-05-28 Outpatient BRETT, RENA CRYSTAL ZAPIEN [id number] [place] 00:00:00 00:00:00 Seybol d 2022-05-27 2022-05-27 Outpatient JAIDEN ZAPIEN [id number] [place] 00:00:00 00:00:00 EY, MICHELLE Se ybold 2022-05-24 2022-05-24 Outpatient CRYSTAL AGUAYO [id number] [place] 13:15:00 13:15:00 JORGE Seybol d 2022-05-24 2022-05-24 Outpatient VF1 CRYSTAL ZAPIEN [id number] [place] 12:30:00 12:30:00 Seybol d 2022-05-21 2022-05-21 Outpatient BRETTRENA JEFFRIES CRYSTAL ZAPIEN [id number] [place] 12:00:00 12:00:00 Seybol d 2022-05-10 2022-05-10 Outpatient CRYSTAL ZAPIEN [id number] [place] 00:00:00 00:00:00 Seybol d 2022-05-06 2022-05-07 Outpatient LUANNE BAKER [facility] Surgery [id number] SLE 06:44:00 10:34:00 ALI 2022-05-06 2022-05-07 [id number] 06:44:00 10:34:[address] [facility] 2022-05-07 2022-05-07 Outpatient CRYSTAL ZAPIEN [id number] [place] 00:00:00 00:00:00 Seybol d 2022-05-06 2022-05-06 [id number] 12:32:00 14:57:00 [facility] 2022-05-06 2022-05-06 Outpatient CRYSTAL [facility] [id number] [place] 09:00:00 09:00:00 MORTAZAVI Seyb old 2022-05-06 2022-05-06 Outpatient CRYSTAL BAKER [id number] [place] 00:00:00 00:00:00 ALI Seybol d 2022-05-04 2022-05-04 Outpatient VIJAYA VELASQUEZ [id number] [place] 14:15:00 14:15:00 Seybol d 2022-05-04 2022-05-04 Outpatient [place] [id number] [place] 11:00:00 11:00:00 GLEN Seybol d 2022-05-03 2022-05-03 Outpatient CRYSTAL ZAPIEN [id number] [place] 00:00:00 00:00:00 Seybol d 2022-04-30 2022-04-30 Outpatient LAB47 CRYSTAL ZAPIEN [id number] [place] 11:55:00 11:55:00 Seybol d 2022-04-20 2022-04-20 Outpatient CRYSTAL ZAPIEN [id number] [place] 12:40:00 12:40:00 Seybol d 2022-04-20 2022-04-20 Outpatient LAB39 CRYSTAL ZAPIEN [id number] [place] 12:35:00 12:35:00 Seybol d 2022-04-20 2022-04-20 Outpatient 39, HOLTER CRYSTAL ZAPIEN [id number] [place] 12:00:00 12:00:00 Seybol d 2022-04-20 2022-04-20 Outpatient CRYSTAL BAKER [id number] [place] 10:45:00 10:45:00 ALI Seybol d 2022-04-20 2022-04-20 Outpatient CRYSTAL BAKER [id number] [place] 00:00:00 00:00:00 ALI Seybol d 2022-04-12 2022-04-12 Outpatient PANCHO MERAZ [id number] [place] 10:30:00 10:30:00 Seybol d 2022-04-12 2022-04-12 Outpatient MIGUEL-YUAN ZAPIEN [id number] [place] 00:00:00 00:00:00 MICHELLE LOPEZ Se ybold 2022-03-22 2022-03-22 Outpatient CRYSTAL AGUAYO [id number] [place] 08:15:00 08:15:00 JORGE Seybol d 2022-03-19 2022-03-19 Outpatient CRYSTAL DECKER [id number] [place] 14:00:00 14:00:00 PATRIA Seyb old 2022-02-22 2022-02-22 Outpatient 1, OPTICAL CRYSTAL ZAPIEN [id number] [place] 14:30:00 14:30:00 Seybol d 2022-02-22 2022-02-22 Outpatient CRYSTAL PANTOJA [id number] [place] 14:00:00 14:00:00 JAMMIE Seybol d 2022-02-22 2022-02-22 Outpatient MAC, EKG- CRYSTAL ZAPIEN [id number] [place] 13:30:00 13:30:00 Seybol d 2022-02-19 2022-02-19 Outpatient COVID-MODER CRYSTAL ZAPIEN [id number] [place] 13:50:00 13:50:00 NA VACC, Seybo ld [place] 2022-02-19 2022-02-19 Outpatient CRYSTAL DECKER [id number] [place] 13:00:00 13:00:00 PATRIA Seyb old 2022-02-08 2022-02-08 Outpatient LAB47 CRYSTAL ZAPIEN [id number] [place] 09:55:00 09:55:00 Seybol d 2022-01-25 2022-01-25 Outpatient JAIDEN ZAPIEN [id number] [place] 00:00:00 00:00:00 EY, MICHELLE Se ybold 2022-01-22 2022-01-22 Outpatient JAIDEN ZAPIEN [id number] [place] 00:00:00 00:00:00 EY, MICHELLE Se ybold 2022-01-21 2022-01-21 Outpatient LAB47 CRYSTAL ZAPIEN [id number] [place] 10:50:00 10:50:00 Seybol d 2022-01-21 2022-01-21 Outpatient JAIDEN ZAPIEN [id number] [place] 09:00:00 09:00:00 EY, MICHELLE Se ybold 2022-01-06 2022-01-06 Outpatient CRYSTAL PANTOJA [id number] [place] 11:20:00 11:20:00 JAMMIE Seybol d 2021-11-16 2021-11-16 Outpatient JAIDEN ZAPIEN [id number] [place] 00:00:00 00:00:00 EY, MICHELLE Se ybold 2021-11-06 2021-11-06 Outpatient CRYSTAL ZAPIEN [id number] [place] 13:45:00 13:45:00 Seybol d 2021-11-05 2021-11-05 Outpatient CRYSTAL FREITAS [id number] [place] 00:00:00 00:00:00 CHANDRIKA Seybol d 2021-11-04 2021-11-04 Outpatient LAB47 CRYSTAL ZAPIEN [id number] [place] 15:40:00 15:40:00 Seybol d 2021-11-03 2021-11-03 Outpatient JAIDEN ZAPIEN [id number] [place] 00:00:00 00:00:00 MICHELLE LOPEZ Se ybold 2021-10-28 2021-10-28 [place] [id number] [place] 00:00:00 00:00:00 GLEN Seybol d 2021-10-27 2021-10-27 Outpatient LAB39 CRYSTAL ZAPIEN [id number] [place] 10:45:00 10:45:00 Seybol d 2021-10-27 2021-10-27 Office Vijaya Velasquez [id number] [place] 10:15:00 10:30:00 Visit BAZINE [id number] Se ybold [id number] 2021-10-12 2021-10-12 Outpatient [place] [id number] [place] 00:00:00 00:00:00 GLEN Seybol d 2021-07-08 2021-07-08 Outpatient Julissa, OPTICAL CRYSTAL ZAPIEN [id number] [place] 10:00:00 10:00:00 Seybol d 2021-07-08 2021-07-08 Office SAMIR PANTOJA [id number] [place] 09:40:00 09:40:00 [facility] [id number] Se ybold [id number] 2021-06-01 2021-06-01 Outpatient LAB47 CRYSTAL ZAPIEN [id number] [place] 13:45:00 13:45:00 Seybol d 2021-06-01 2021-06-01 Office CINDY Decker [id number] [place] 13:00:00 13:30:00 Visit [place] [id number] Seybold [id number] 2021-06-01 2021-06-01 Outpatient JAIDEN ZAPIEN [id number] [place] 13:00:00 13:00:00 MICHELLE LOPEZ Se ybold 2021-05-18 2021-05-18 Outpatient KIT CRYSTAL ZAPIEN [id number] [place] 00:00:00 00:00:00 JAMMIE Seybol d 2021-05-05 2021-05-05 Outpatient FLOOR, LAB CRYSTAL ZAPIEN [id number] [place] 11:25:00 11:25:00 Seybol d 2021-05-05 2021-05-05 Office SAMIR Us [id number] [place] 11:00:00 11:20:00 Visit [facility] [id number] Se ybold [id number] 2021-05-05 2021-05-05 Outpatient LAB39 CRYSTAL ZAPIEN [id number] [place] 09:20:00 09:20:00 Seybol d 2021-04-28 2021-04-28 Outpatient LAB39 CRYSTAL ZAPIEN [id number] [place] 11:25:00 11:25:00 Seybol d 2021-04-28 2021-04-28 Office Vijaya Velasquez MAIN [id number] [place] 10:45:00 11:00:00 Visit [facility] [id number] Se ybold [id number] 2021-04-16 2021-04-16 Outpatient JAIDEN ZAPIEN [id number] [place] 00:00:00 00:00:00 MICHELLE LOPEZ Se ybold 2021-03-25 2021-03-25 Outpatient JAIDEN ZAPIEN [id number] [place] 00:00:00 00:00:00 MICHELLE LOPEZ Se ybold 2021-03-17 2021-03-17 Outpatient VIJAYA VELASQUEZ [id number] [place] 00:00:00 00:00:00 Seybol d 2021-03-03 2021-03-03 Outpatient CRYSTAL ECHEVERRIA [id number] [place] 14:45:00 14:45:00 [place] Seybo ld 2021-02-24 2021-02-24 Outpatient VIJAYA VELASQUEZ CRYSTAL ZAPIEN [id number] [place] 11:15:00 11:15:00 Seybol d 2021-02-19 2021-02-19 Outpatient JAIDEN ZAPIEN [id number] [place] 00:00:00 00:00:00 EYMICHELLE Se ybold 2021-02-18 2021-02-18 Outpatient JAIDEN ZAPIEN [id number] [place] 00:00:00 00:00:00 EYPAKOMICHELLE Se ybold 2021-01-13 2021-01-13 Outpatient CRYSTAL ZAPIEN [id number] [place] 13:00:00 13:00:00 Seybol d 2021-01-07 2021-01-07 Outpatient VF2 CRYSTAL ZAPIEN [id number] [place] 09:30:00 09:30:00 Seybol d 2021-01-07 2021-01-07 Office SAMIR Pantoja [id number] [place] 09:08:17 09:28:17 Visit [facility] [id number] Se ybold [id number] 2020-12-24 2020-12-24 Outpatient JAIDEN ZAPIEN [id number] [place] 00:00:00 00:00:00 EYMICHELLE Se ybold 2020-12-05 2020-12-05 Outpatient CRYSTAL ZAPIEN [id number] [place] 09:45:00 09:45:00 Seybol d 2020-12-02 2020-12-02 Outpatient LAB47 CRYSTAL ZAPIEN [id number] [place] 12:00:00 12:00:00 Seybol d 2020-12-02 2020-12-02 Outpatient TRED47 CRYSTAL ZAPIEN [id number] [place] 11:30:00 11:30:00 Seybol d 2020-12-02 2020-12-02 Outpatient CRYSTAL ZAPIEN [id number] [place] 11:25:00 11:25:00 Seybol d 2020-12-02 2020-12-02 Outpatient JAIDEN ZAPIEN [id number] [place] 10:00:00 10:00:00 MICHELLE LOPEZ Se 2016-08-25 2016-08-25 Outpatient SLE SLE [id number] [facility] 00:00:00 00:00:00 [id number] 2016-08-25 2016-08-25 Outpatient SLE SLE [id number] SLE 00:00:00 00:00:00 Results Test Description Test Time Test Comments Results Result [facility] e Comments Urine Protein 2022-05-17 [facility] Electrophoresis, 12:38:36 [facility] dical random [facility] CENTERAlbumin %, UrineKNAPP MEDICAL CENTERGlobulin %, [facility] SCANNED REPORT Urine Protein 2022-05-17 [facility], 12:38:36 [facility] dical random [facility] CENTERAlbumin %, UrineKNAPP MEDICAL CENTERGlobulin %, UrineKNAPP MEDICAL CENTERUPEP,[facility] SCANNED REPORT Urine Protein 2022-05-17 Protein, [facility] Electrophoresis, 12:38:36 Urine05/17/2022 Med ical random 12:38 PM [facility], Urine05/17/2022 12:38 PM [facility]Gl[facility] %, Urine05/17/2022 12:38 PM [facility],ID2022 12:38 PM [facility] SCANNED REPORT SERUM IMMUNOTYPING 2022-05-07 16:03:12 Test Item Value Reference Range Interpretation Comme nts IMMUNOGLOBULIN A (IGA) 140 mg/dL 63-484 (JUSTINA) (test code = 639) IMMUNOGLOBULIN G (IGG) 1005 mg/dL See_Comment [Aut omated message] (JUSTINA) (test code = The sy stem which 427) generated this result transmitted ref erence range: 540-1,82 2. The reference range was not used to int erpret this result as normal/abnormal . IMMUNOGLOBULIN M (IGM) 46 mg/dL 22-293 (BEAKER) (test code = 638) SERUM IT ID [id number](BEAKER) No monoclonal (test code = 3817) immunoglobulin detected. [facility]-PATHOLOGIST-"[id number] Emani Hammonds M.D " (BEAKER) (test code = (electronic signature) 3801) Clinical Eyeglass Lens Generator - SFOperator ID - MITCHPROTEIN ELECTROPHORESIS, SERUM WITH REFLEX TO [id number] 16:02:50 Test Item Value Reference Range Interpretation Comments ALBUMIN FRACTION 3.4 gm/dL 3.5-5.5 L (BEAKER) (test code = 405) ALPHA 1 FRACTION 0.3 gm/dL 0.2-0.4 (BEAKER) (test code = 389) ALPHA 2 FRACTION 0.5 gm/dL 0.4-1.0 (BEAKER) (test code = 390) BETA FRACTION 0.5 gm/dL 0.5-1.1 (BEAKER) (test code = 392) GAMMA GLOBULIN 0.9 gm/dL 0.7-1.6 FRACTION (BEAKER) (test code = 391) INTERPRETATION-119 Total protein and (BEAKER) (test code = albumin decreased. This 2615) may indicate hemodilution, protein malnutrition, or a protein losing state. Clinical correlation is suggested. [id number] Emani Hammonds M.D ([facility]) (test code = (electronic signature) 5731) PROTEIN TOTAL SERUM, 5.6 gm/dL 6.0-8.3 L SPEP (BEAKER) (test code = 3636) Clinical Eyeglass Lens Generator - SFOperator ID - PIAYA LOperator ID - ADMRHEUMATOID FACTOR AB, REFLEX TO [id number] 13:13:05 Test Item Value Reference Range Interpretation Comments RHEUMATOID FACTOR (BEAKER) (test Negative Negative code = 573) [id number] 13:04:16 Test Item Value Reference Range Interpretation Comments RPR SCREEN (BEAKER) (test code = Nonreactive Nonreactive 420) VITAMIN D, [id number] 12:48:26 Test Item Value Reference Range Interpretation Comments VITAMIN D 25-OH (BEAKER) (test code 8.3 ng/mL 6.6-49.9 = 2764) Effective 01/12/2017: Reference Range ChangeNew: 6.6-49.9 ng/mL Previous: 13.0- 47.8 ng/mLRecommendedVitamin D Target Range: 30.0-40.0 ng/mLOperator ID - JN ANTI-NUCLEAR ANTIBODY (LATONIA)2022-05-07 11:48:43 Test Item Value Reference Range Interpretation Comments ANTI-NUCLEAR ANTIBODY (LATONIA) (MANISHAKER) Negative Negative (test code = 418) Test performed by IFA method.Test performed by IFA method.U/S, RENAL WITH [id number] 11:45:00Reason for exam:->EILEEN with doppler-attn size and echogenicity Should this be performed at the bedside?->No [facility] C[facility] CUPID : 1950 Sex: MFINAL REPORT Renal ultrasound and Duplex Doppler ultrasound of kidneys dated 05/07/2022 Comment: Real-time transabdominal renal ultrasound was performed.Right kidney measures 10.3 x 5.1x 5.7 cm. Left kidney measures 11 x 5.7 x 5.7 cm. Right renal cortex measures 1. cm. Left renal cortex measures 1.5 cm. Echogenicity of both renal parenchyma is increased Multiple cysts in the abscess in the right kidney with largest measuring 4.5 x 3.7 x 4.0 cm. Multiple cysts are seen in the left kidney with the largest measuring 3.1 x 3.5 x 3.0 cm. The urinary bladder measures 155 cc. Color Doppler and spectral ultrasound demonstrates patent main renal artery and vein bilaterally. The resistive in dices of the right upper, middle, and inferior intralobar arteries are 0.7, 0 point, and 0.7 respectively. The resistive indices of the left upper, middle, and inferior intralobar arteries are 0.68, 0.68, and 0.69 respectively. Impression: 1. Multiple bilateral renal cysts.2. Normal Doppler of the kidneys with elevated resistive indicis. Signed: Renato Magdaleno Verified Date/Time: 05/07/2022 11:45:53 RAD, CHEST, 1 VIEW, NON [id number] 08:46:00Remove telemetry wires prior to performing xrayReason for exam:->s/p PPM; rule out PTXShould thisbe performed at the bedside?->Yes [facility] CUPID : 1950 Sex: MFINAL REPORT Chest AP portable COMPARISON STUDY: 05/06/2022 History provided: Statuspost pacemaker. Pneumothorax evaluation Heart size normal. Dual lead right subclavian pacemaker remains in position. No pneumothorax. Lungs are clear. Rounded soft tissue density persists at the right cardiophrenic angle. This could represent a pericardial cyst or a mass. Suggest chest CT in further assessment. Signed: Chester Tate Verified Date/Time: 05/07/2022 08:46:00 Reading Location: [facility] Radiology Reading Room BASIC METABOLIC [id number] 06:45:50 Test Item Value Reference Range Interpretation Comments SODIUM (BEAKER) 139 meq/L 136-145 (test code = 381) POTASSIUM 4.0 meq/L 3.5-5.1 (BEAKER) (test code = 379) CHLORIDE (BEAKER) 112 meq/L 98-107 H (test code = 382) CO2 (BEAKER) 19 meq/L 22-29 L (test code = 355) BLOOD UREA 21 mg/dL 7-21 NITROGEN (BEAKER) (test code = 354) CREATININE 2.07 mg/dL 0.57-1.25 H (BEAKER) (test code = 358) GLUCOSE RANDOM 79 mg/dL 70-105 (BEAKER) (test code = 652) CALCIUM (BEAKER) 8.5 mg/dL 8.4-10.2 (test code = 697) EGFR (BEAKER) 34 Interpretatio n of eGFR (test code = mL/min/1.73 values Stage De scription 1092) sq m Result G1 Cami l or high >=90 G2 Mildly decreased 60-89 G3a Mildl y to moderately 45-5 9 G3b Moderately to s everely 30-44 G4 Severl y decreased 15-29 G5 Kidney failure <15Reported eGF R is based on the CKD-EPI 2020 equation that d oes not use a race coefficientEsti mated GFR is not as accur ate as Creatinine Krystin hendrix in predicting glom erular filtration rate . Estimated GFR is not appl icable for dialysis patien ts [employer] ID - KOSTASAYA LPTH, [id number] 06:09:40 Test Item Value Reference Range Interpretation Comments PARATHYROID HORMONE INTACT 210.0 pg/mL 8.5-72.5 H (BEAKER) (test code = 577) [employer] ID - KOSTASAYA LHEMOGLOBIN AND [id number] 05:38:48 Test Item Value Reference Range Interpretation Comments HEMOGLOBIN (BEAKER) (test code = 9.5 GM/DL 13.7-17.5 L 410) HEMATOCRIT (BEAKER) (test code = 27.7 % 40.1-51.0 L 411) [employer] ID - MarcCreatinine, random [id number] 18:09:53 Test Item Value Reference Range Interpretation Comments Creatinine, Ur 32.7 mg/dL (test code = 2161-8) NIR (test code = Reference Range: No NIR) NormalsOperator ID - BS [facility] [id number] 18:09:53 Test Item Value Reference Range Interpretation Comments Protein, Urine (test code = 80 mg/dL 0-14 H 2888-6) NIR (test code = NIR) [employer] ID - BS Lab Interpretation (test Abnormal code = 47281-3) [facility] HospitalCreat[facility], random [id number] 18:09:53 Test Item Value Reference Range Interpretation Comments Creatinine, Ur 32.7 mg/dL (test code = 2161-8) NIR (test code = Reference Range: No NIR) NormalsOperator ID - BS [facility] HospitalProtein, random [id number] 18:09:53 Test Item Value Reference Range Interpretation Comments Protein, Urine (test code = 80 mg/dL 0-14 H 2888-6) NIR (test code = NIR) [employer] ID - BS Lab Interpretation (test Abnormal code = 62215-8) [facility] HospitalCreat[facility], random [id number] 18:09:53 Test Item Value Reference Range Interpretation Comments Creatinine, Ur 32.7 mg/dL (test code = 2161-8) NIR (test code = Reference Range: No NIR) NormalsOperator ID - BS [facility] HospitalProtein, random [id number] 18:09:53 Test Item Value Reference Range Interpretation Comments Protein, Urine (test code = 80 mg/dL 0-14 H 2888-6) NIR (test code = NIR) [employer] ID - BS Lab Interpretation (test Abnormal code = 60958-4) [facility] HospitalCREATININE, RANDOM [id number] 18:09:53 Test Item Value Reference Range Interpretation Comments CREATININE URINE (BEAKER) (test 32.7 mg/dL code = 375) Reference Range: No NormalsOperator ID - BSPROTEIN, RANDOM [id number] 18:09:53 Test Item Value Reference Range Interpretation Comments PROTEIN, URINE (BEAKER) (test code = 80 mg/dL 0-14 H 1569) [employer] ID - BSPOC-Glucose [id number] 16:39:21 Test Item Value Reference Range Interpretation Comments POC-Glucose Meter (test 77 mg/dL 70-110 : TE STED AT [facility] code = 1538) [address] [facility], 770 30: [employer]/Techni gayle ID = [id number] for SHAMIKA MCKEON Lab Interpretation (test Normal code = 71559-6) [facility]-Glucose [id number] 16:39:21 Test Item Value Reference Range Interpretation Comments POC-Glucose Meter (test 77 mg/dL 70-110 : TE STED AT [facility] code = 1538) [address] [facility], 770 30: [employer]/Techni gayle ID = [id number] for SHAMIKA MCKEON Lab Interpretation (test Normal code = 45188-4) [facility]-Glucose [id number] 16:39:21 Test Item Value Reference Range Interpretation Comments POC-Glucose Meter (test 77 mg/dL 70-110 : TE STED AT [facility] code = 1538) [address] [place] [address], 770 30: [employer]/Techni gayle ID = [id number] for SHAMIKA MCKEON Lab Interpretation (test Normal code = 45500-7) [facility]-GLUCOSE [id number] 16:39:21 Test Item Value Reference Range Interpretation Comments POC-GLUCOSE METER 77 mg/dL 70-110 : TESTED A T [facility] 6720 (BEAKER) (test code = CHIKI Tovar [facility], 1538) [address]: [employer]/Techni gayle ID = [id number] for SHAMIKA MCKEON RAD, CHEST, 1 VIEW, NON [id number] 14:30:00Remove telemetry wires prior to performing xrayReason for exam:->s/p PPM; rule out PTXShould thisbe performed at the bedside?->Yes [facility]AUGHN[facility] DEVREYNALDO URIBE : 1950 Sex: MFINAL REPORT RAD, CHEST, 1 VIEW, NON DEPT CLINICAL HISTORY: s/p PPM; rule out PTX TECHNIQUE: Single view of the chest. COMPARISON: September 11, 2018 IMPRESSION:Right chest pacer device stable in appearance. Right infrahilar opacity seen on prior examination is no longer appreciated. Minimal basilar scarring or atelectasis present. The remainder of lungs are clear. No pneumothorax.The cardiomediastinal silhouette is magnified by technique without significant change. The osseous structures appear stable. Signed: Jakob Lozoya MDReport Verified Date/Time: 05/06/2022 14:30:48 POCT-GLUCOSE [id number] 08:17:50 Test Item Value Reference Range Interpretation Comments POC-GLUCOSE METER 111 mg/dL 70-110 H : TESTED A T [facility] 6720 (BEAKER) (test code [facility], = 1538) [address]: [employer]/Techni gayle ID = [id number] for OCHO O, ROSEBELLA BLOOD [id number] 02:00:00 Test Item Value Reference Range Interpretation Comments CULTURE (BEAKER) (test No growth in 5 days code = 1095) BLOOD [id number] 02:00:00 Test Item Value Reference Range Interpretation Comments CULTURE (BEAKER) (test No growth in 5 days code = 1095) POCT-GLUCOSE [id number] 11:38:00 Test Item Value Reference Range Interpretation Comments POC-GLUCOSE METER 127 mg/dL 70-110 H TESTED AT [facility] 6720 (BEAKER) (test code = CHIKI La [facility] 1538) [address] WOUND CULTURE + GRAM [id number] 14:10:00 Test Item Value Reference Range Interpretation Comments CULTURE A <1+ Same organi sm has (BEAKER) (test been isolated from code = 1095) cultures(s) of the same body site and collection date . Repeat identification and susceptibility testing performed only after consultation wi th the clinical microb iology laboratory.Refe r to previous cultur e ofStaphylococcu s aureus GRAM STAIN 1+ WBCs RESULT (BEAKER) (test code = 1123) GRAM STAIN <1+ gram RESULT (BEAKER) positive cocci (test code = in pairs 680010) WOUND CULTURE + GRAM [id number] 14:10:00 Test Item Value Reference Range Interpretation Comments CULTURE A <1+ Same organi sm has (BEAKER) (test been isolated from code = 1095) cultures(s) of the same body site and collection date . Repeat identification and susceptibility testing performed only after consultation wi the clinical microb iology laboratory.Refe r to previous cultur e ofStaphylococcu s aureus GRAM STAIN 3+ WBCs RESULT (BEAKER) (test code = 1123) GRAM STAIN <1+ gram RESULT (BEAKER) positive cocci (test code = in pairs and 889321) clusters WOUND CULTURE + GRAM [id number] 12:47:00 Test Item Value Reference Interpretation Comments Range CULTURE (BEAKER) STAPHYLOCOCCUS A 2+ Staphy lococcus (test code = 1095) AUREUS aureus Clindamycin (test S code = 10) Erythromycin (test S code = 4) Linezolid (test code S = 40) Nitrofurantoin (test S code = 23) Oxacillin (test code S = 14) Rifampin (test code = S 43) Tetracycline (test S code = 2) Trimethoprim + S Sulfamethoxazole (test code = 47) Vancomycin (test code S = 13) GRAM STAIN RESULT 1+ WBCs (BEAKER) (test code = 1123) GRAM STAIN RESULT <1+ gram positive (BEAKER) (test code = cocci in pairs 441786) POCT-GLUCOSE [id number] 08:06:00 Test Item Value Reference Range Interpretation Comments POC-GLUCOSE METER 123 mg/dL 70-110 H TESTED AT [facility] 6720 (BEAKER) (test code = CHIKI BRENNAN ID 1538) [address] BASIC METABOLIC [id number] 06:44:00 Test Item Value Reference Range Interpretation Comments SODIUM (BEAKER) 137 meq/L 136-145 (test code = 381) POTASSIUM (BEAKER) 3.6 meq/L 3.5-5.1 (test code = 379) CHLORIDE (BEAKER) 109 meq/L 98-107 H (test code = 382) CO2 (BEAKER) (test 22 meq/L 22-29 code = 355) BLOOD UREA NITROGEN 12 mg/dL 7-21 (BEAKER) (test code = 354) CREATININE (BEAKER) 0.92 mg/dL 0.57-1.25 (test code = 358) GLUCOSE RANDOM 93 mg/dL 70-105 (BEAKER) (test code = 652) CALCIUM (BEAKER) 8.3 mg/dL 8.4-10.2 L (test code = 697) EGFR (BEAKER) (test 99 mL/min/1.73 ESTIMA BILL GFR IS code = 1092) sq m NOT ACCURATE CREATININE CLEARANCE IN PREDICTING GLOMERULAR FILTRATION RATE . ESTIMATED GFR I S NOT APPLICABLE FOR DIALYSIS PATIEN TS. HEMOGLOBIN AND [id number] 05:13:00 Test Item Value Reference Range Interpretation Comments HEMOGLOBIN (BEAKER) (test code = 9.6 GM/DL 13.7-17.5 L 410) HEMATOCRIT (BEAKER) (test code = 28.5 % 40.1-51.0 L 411) POCT-GLUCOSE [id number] 21:09:00 Test Item Value Reference Range Interpretation Comments POC-GLUCOSE METER 115 mg/dL 70-110 H TESTED AT [place] [address] ([facility]) (test code = CHIKI Tovar [facility] 1538) [address] POCT-GLUCOSE [id number] 16:51:00 Test Item Value Reference Range Interpretation Comments POC-GLUCOSE METER 99 mg/dL 70-110 TESTED AT [place] [address] ([facility]) (test [facility] = [facility] [address] 1538) POCT-GLUCOSE [id number] 08:15:00 Test Item Value Reference Range Interpretation Comments POC-GLUCOSE METER 84 mg/dL 70-110 TESTED AT [place] [address] ([facility]) (test code = [facility] La [facility] [address] 1538) [id number] 06:59:00 Test Item Value Reference Range Interpretation Comments MAGNESIUM (BEAKER) (test code = 2.0 mg/dL 1.6-2.6 627) BASIC METABOLIC [id number] 06:59:00 Test Item Value Reference Range Interpretation Comments SODIUM (BEAKER) 140 meq/L 136-145 (test code = 381) POTASSIUM (BEAKER) 3.6 meq/L 3.5-5.1 (test code = 379) CHLORIDE (BEAKER) 112 meq/L 98-107 H (test code = 382) CO2 (BEAKER) (test 21 meq/L 22-29 L code = 355) BLOOD UREA NITROGEN 12 mg/dL 7-21 (BEAKER) (test code = 354) CREATININE (BEAKER) 0.92 mg/dL 0.57-1.25 (test code = 358) GLUCOSE RANDOM 93 mg/dL 70-105 (BEAKER) (test code = 652) CALCIUM (BEAKER) 8.4 mg/dL 8.4-10.2 (test code = 697) EGFR (BEAKER) (test 99 mL/min/1.73 ESTIMA BILL GFR IS code = 1092) sq m NOT ACCURATE CREATININE CLEARANCE IN PREDICTING GLOMERULAR FILTRATION RATE . ESTIMATED GFR I S NOT APPLICABLE FOR DIALYSIS PATIEN TS. VANCOMYCIN LEVEL, [id number] 06:50:00 Test Item Value Reference Range Interpretation Comments VANCOMYCIN TROUGH (BEAKER) (test 10.7 ug/mL 10.0-20.0 code = 522) CBC W/PLT COUNT & AUTO [id number] 04:28:00 Test Item Value Reference Range Interpretation Comments WHITE BLOOD CELL COUNT (BEAKER) 6.3 K/ L 3.5-10.5 (test code = 775) RED BLOOD CELL COUNT (BEAKER) 3.07 M/ L 4.63-6.08 L (test code = 761) HEMOGLOBIN (BEAKER) (test code = 9.5 GM/DL 13.7-17.5 L 410) HEMATOCRIT (BEAKER) (test code = 28.7 % 40.1-51.0 L 411) MEAN CORPUSCULAR VOLUME (BEAKER) 93.5 fL 79.0-92.2 H (test code = 753) MEAN CORPUSCULAR HEMOGLOBIN 30.9 pg 25.7-32.2 (BEAKER) (test code = 751) MEAN CORPUSCULAR HEMOGLOBIN CONC 33.1 GM/DL 32.3-36.5 (BEAKER) (test code = 752) RED CELL DISTRIBUTION WIDTH 16.8 % 11.6-14.4 H (BEAKER) (test code = 412) PLATELET COUNT (BEAKER) (test 239 K/CU MM 150-450 code = 756) MEAN PLATELET VOLUME (BEAKER) 10.1 fL 9.4-12.4 (test code = 754) NUCLEATED RED BLOOD CELLS 0 /100 WBC 0-0 (BEAKER) (test code = 413) NEUTROPHILS RELATIVE PERCENT 53 % (BEAKER) (test code = 429) LYMPHOCYTES RELATIVE PERCENT 30 % (BEAKER) (test code = 430) MONOCYTES RELATIVE PERCENT 11 % (BEAKER) (test code = 431) EOSINOPHILS RELATIVE PERCENT 4 % (BEAKER) (test code = 432) BASOPHILS RELATIVE PERCENT 1 % (BEAKER) (test code = 437) NEUTROPHILS ABSOLUTE COUNT 3.35 K/ L 1.78-5.38 (BEAKER) (test code = 670) LYMPHOCYTES ABSOLUTE COUNT 1.90 K/ L 1.32-3.57 (BEAKER) (test code = 414) MONOCYTES ABSOLUTE COUNT (BEAKER) 0.72 K/ L 0.30-0.82 (test code = 415) EOSINOPHILS ABSOLUTE COUNT 0.28 K/ L 0.04-0.54 (BEAKER) (test code = 416) BASOPHILS ABSOLUTE COUNT (BEAKER) 0.06 K/ L 0.01-0.08 (test code = 417) IMMATURE GRANULOCYTES-RELATIVE 0 % 0-1 PERCENT (BEAKER) (test code = 2801) POCT-GLUCOSE [id number] 14:44:00 Test Item Value Reference Range Interpretation Comments POC-GLUCOSE METER 111 mg/dL 70-110 H TESTED AT [facility] 6720 (BEAKER) (test code = CHIKI BRENNAN ID 1538) [address] CBC W/PLT COUNT & AUTO [id number] 10:05:00 Test Item Value Reference Range Interpretation Comments WHITE BLOOD CELL COUNT (BEAKER) 7.8 K/ L 3.5-10.5 (test code = 775) RED BLOOD CELL COUNT (BEAKER) 3.40 M/ L 4.63-6.08 L (test code = 761) HEMOGLOBIN (BEAKER) (test code = 10.5 GM/DL 13.7-17.5 L 410) HEMATOCRIT (BEAKER) (test code = 31.5 % 40.1-51.0 L 411) MEAN CORPUSCULAR VOLUME (BEAKER) 92.6 fL 79.0-92.2 H (test code = 753) MEAN CORPUSCULAR HEMOGLOBIN 30.9 pg 25.7-32.2 (BEAKER) (test code = 751) MEAN CORPUSCULAR HEMOGLOBIN CONC 33.3 GM/DL 32.3-36.5 (BEAKER) (test code = 752) RED CELL DISTRIBUTION WIDTH 16.8 % 11.6-14.4 H (BEAKER) (test code = 412) PLATELET COUNT (BEAKER) (test 280 K/CU MM 150-450 code = 756) MEAN PLATELET VOLUME (BEAKER) 9.9 fL 9.4-12.4 (test code = 754) NUCLEATED RED BLOOD CELLS 0 /100 WBC 0-0 (BEAKER) (test code = 413) NEUTROPHILS RELATIVE PERCENT 57 % (BEAKER) (test code = 429) LYMPHOCYTES RELATIVE PERCENT 26 % (BEAKER) (test code = 430) MONOCYTES RELATIVE PERCENT 11 % (BEAKER) (test code = 431) EOSINOPHILS RELATIVE PERCENT 6 % (BEAKER) (test code = 432) BASOPHILS RELATIVE PERCENT 1 % (BEAKER) (test code = 437) NEUTROPHILS ABSOLUTE COUNT 4.43 K/ L 1.78-5.38 (BEAKER) (test code = 670) LYMPHOCYTES ABSOLUTE COUNT 2.01 K/ L 1.32-3.57 (BEAKER) (test code = 414) MONOCYTES ABSOLUTE COUNT (BEAKER) 0.82 K/ L 0.30-0.82 (test code = 415) EOSINOPHILS ABSOLUTE COUNT 0.45 K/ L 0.04-0.54 (BEAKER) (test code = 416) BASOPHILS ABSOLUTE COUNT (BEAKER) 0.08 K/ L 0.01-0.08 (test code = 417) IMMATURE GRANULOCYTES-RELATIVE 0 % 0-1 PERCENT (BEAKER) (test code = 2801) POCT-GLUCOSE [id number] 09:03:00 Test Item Value Reference Range Interpretation Comments POC-GLUCOSE METER 81 mg/dL 70-110 TESTED AT [facility] 6720 (BEAKER) (test code = [place] [id number]) BASIC METABOLIC [id number] 08:17:00 Test Item Value Reference Range Interpretation Comments SODIUM (BEAKER) 141 meq/L 136-145 (test code = 381) POTASSIUM (BEAKER) 3.5 meq/L 3.5-5.1 (test code = 379) CHLORIDE (BEAKER) 112 meq/L 98-107 H (test code = 382) CO2 (BEAKER) (test 23 meq/L 22-29 code = 355) BLOOD UREA NITROGEN 11 mg/dL 7-21 (BEAKER) (test code = 354) CREATININE (BEAKER) 0.85 mg/dL 0.57-1.25 (test code = 358) GLUCOSE RANDOM 88 mg/dL 70-105 (BEAKER) (test code = 652) CALCIUM (BEAKER) 8.5 mg/dL 8.4-10.2 (test code = 697) EGFR (BEAKER) (test 108 mL/min/1.73 ESTIM ATED GFR IS code = 1092) sq m NOT ACCURATE CREATININE CLEARANCE IN PREDICTING GLOMERULAR FILTRATION RATE . ESTIMATED GFR I S NOT APPLICABLE FOR DIALYSIS PATIEN TS. HEMOGLOBIN AND [id number] 07:35:00 Test Item Value Reference Range Interpretation Comments HEMOGLOBIN (BEAKER) (test code = 10.3 GM/DL 13.7-17.5 L 410) HEMATOCRIT (BEAKER) (test code = 30.9 % 40.1-51.0 L 411) POCT-GLUCOSE [id number] 23:38:00 Test Item Value Reference Range Interpretation Comments POC-GLUCOSE METER 166 mg/dL 70-110 H TESTED AT [facility] 6720 (BEAKER) (test code = [place] 1538) [id number] CBC W/PLT COUNT & AUTO [id number] 15:54:00 Test Item Value Reference Range Interpretation Comments WHITE BLOOD CELL COUNT (BEAKER) 11.2 K/ L 4.0-10.0 H (test code = 775) RED BLOOD CELL COUNT (BEAKER) 3.71 M/ L 4.20-5.80 L (test code = 761) HEMOGLOBIN (BEAKER) (test code = 11.6 GM/DL 13.0-16.8 L 410) HEMATOCRIT (BEAKER) (test code = 35.2 % 40.0-50.0 L 411) MEAN CORPUSCULAR VOLUME (BEAKER) 95.0 fL 82.0-98.0 (test code = 753) MEAN CORPUSCULAR HEMOGLOBIN 31.3 pg 27.0-33.0 (BEAKER) (test code = 751) MEAN CORPUSCULAR HEMOGLOBIN CONC 33.0 GM/DL 32.0-36.0 (BEAKER) (test code = 752) RED CELL DISTRIBUTION WIDTH 15.6 % 10.3-14.2 H (BEAKER) (test code = 412) PLATELET COUNT (BEAKER) (test 344 K/CU MM 150-430 code = 756) MEAN PLATELET VOLUME (BEAKER) 7.7 fL 6.5-10.5 (test code = 754) NEUTROPHILS RELATIVE PERCENT 63 % (BEAKER) (test code = 429) LYMPHOCYTES RELATIVE PERCENT 24 % (BEAKER) (test code = 430) MONOCYTES RELATIVE PERCENT 9 % (BEAKER) (test code = 431) EOSINOPHILS RELATIVE PERCENT 4 % (BEAKER) (test code = 432) BASOPHILS RELATIVE PERCENT 1 % (BEAKER) (test code = 437) NEUTROPHILS ABSOLUTE COUNT 7.06 K/ L 1.80-8.00 (BEAKER) (test code = 670) LYMPHOCYTES ABSOLUTE COUNT 2.64 K/ L 1.48-4.50 (BEAKER) (test code = 414) MONOCYTES ABSOLUTE COUNT (BEAKER) 1.00 K/ L 0.00-1.30 (test code = 415) EOSINOPHILS ABSOLUTE COUNT 0.41 K/ L 0.00-0.50 (BEAKER) (test code = 416) BASOPHILS ABSOLUTE COUNT (BEAKER) 0.08 K/ L 0.00-0.20 (test code = 417) COMPREHENSIVE METABOLIC [id number] 15:49:00 Test Item Value Reference Range Interpretation Comments TOTAL PROTEIN 8.6 gm/dL 6.0-8.5 H (BEAKER) (test code = 770) ALBUMIN (BEAKER) 4.2 g/dL 3.5-5.0 (test code = 1145) ALKALINE PHOSPHATASE 99 U/L 30-115 (BEAKER) (test code = 346) BILIRUBIN TOTAL 0.6 mg/dL 0.1-1.2 (BEAKER) (test code = 377) SODIUM (BEAKER) (test 136 meq/L 135-148 code = 381) POTASSIUM (BEAKER) 3.1 meq/L 3.6-5.5 L (test code = 379) CHLORIDE (BEAKER) 103 meq/L 98-106 (test code = 382) CO2 (BEAKER) (test 22 meq/L 24-32 L code = 355) BLOOD UREA NITROGEN 15 mg/dL 10-26 (BEAKER) (test code = 354) CREATININE (BEAKER) 1.09 mg/dL 0.50-1.20 (test code = 358) GLUCOSE RANDOM 115 mg/dL 70-110 H (BEAKER) (test code = 652) CALCIUM (BEAKER) 9.1 mg/dL 8.5-10.5 (test code = 697) AST (SGOT) (BEAKER) 17 U/L 5-40 (test code = 353) ALT (SGPT) (BEAKER) 15 U/L 5-50 (test code = 347) EGFR (BEAKER) (test 81 mL/min/1.73 ESTIMA BILL GFR IS code = 1092) sq m NOT ACCURATE CREATININE CLEARANCE IN PREDICTING GLOMERULAR FILTRATION RATE . ESTIMATED GFR I S NOT APPLICABLE FOR DIALYSIS PATIEN TS. [id number] 15:49:00 Test Item Value Reference Range Interpretation Comments PROTIME (BEAKER) (test code = 10.5 seconds 9.8-12.0 759) INR (BEAKER) (test code = 370) 1.0 <=5.9 PARTIAL THROMBOPLASTIN TIME 26.5 seconds 25.8-34.5 (BEAKER) (test code = 760) RECOMMENDED COUMADIN/WARFARIN INR THERAPY RANGESSTANDARD DOSE: 2.0 - 3.0 Includes: PROPHYLAXIS for venous thrombosis, systemic embolization; TREATMENT for venous thrombosis and/or pulmonary embolus.HIGH RISK: Target INR is 2.5-3.5 for patients with mechanical heart valves.CREATINE KINASE (CK)2018-11-09 15:48:00 Test Item Value Reference Range Interpretation Comments CREATINE KINASE TOTAL (BEAKER) (test 159 U/L 40-250 code = 380) HEMOGLOBIN [id number] 11:03:00 Test Item Value Reference Range Interpretation Comments HEMOGLOBIN A1C (BEAKER) (test code = 6.6 % 4.3-6.1 H 368) [id number] 09:01:00 Test Item Value Reference Range Interpretation Comments PHOSPHORUS (BEAKER) (test code = 2.4 mg/dL 2.3-4.7 604) [id number] 09:01:00 Test Item Value Reference Range Interpretation Comments MAGNESIUM (BEAKER) (test code = 1.9 mg/dL 1.6-2.6 627) BASIC METABOLIC [id number] 09:01:00 Test Item Value Reference Range Interpretation Comments SODIUM (BEAKER) 137 meq/L 136-145 (test code = 381) POTASSIUM (BEAKER) 3.6 meq/L 3.5-5.1 (test code = 379) CHLORIDE (BEAKER) 108 meq/L 98-107 H (test code = 382) CO2 (BEAKER) (test 23 meq/L 22-29 code = 355) BLOOD UREA NITROGEN 13 mg/dL 7-21 (BEAKER) (test code = 354) CREATININE (BEAKER) 0.95 mg/dL 0.57-1.25 (test code = 358) GLUCOSE RANDOM 99 mg/dL 70-105 (BEAKER) (test code = 652) CALCIUM (BEAKER) 8.6 mg/dL 8.4-10.2 (test code = 697) EGFR (BEAKER) (test 95 mL/min/1.73 ESTIMA BILL GFR IS code = 1092) sq m NOT ACCURATE CREATININE CLEARANCE IN PREDICTING GLOMERULAR FILTRATION RATE . ESTIMATED GFR I S NOT APPLICABLE FOR DIALYSIS PATIEN TS. HEPATIC FUNCTION [id number] 09:01:00 Test Item Value Reference Range Interpretation Comments TOTAL PROTEIN (BEAKER) (test code = 6.1 gm/dL 6.0-8.3 770) ALBUMIN (BEAKER) (test code = 1145) 3.2 g/dL 3.5-5.0 L BILIRUBIN TOTAL (BEAKER) (test code 0.7 mg/dL 0.2-1.2 = 377) BILIRUBIN DIRECT (BEAKER) (test 0.4 mg/dL 0.1-0.5 code = 706) ALKALINE PHOSPHATASE (BEAKER) (test 41 U/L 40-150 code = 346) AST (SGOT) (BEAKER) (test code = 54 U/L 5-34 H 353) ALT (SGPT) (BEAKER) (test code = 40 U/L 6-55 347) CREATINE KINASE (CK)2018-09-12 09:01:00 Test Item Value Reference Range Interpretation Comments CREATINE KINASE TOTAL (BEAKER) (test 1943 U/L 29-200 H code = 380) LACTATE DEHYDROGENASE (LDH)2018-09-12 09:01:00 Test Item Value Reference Range Interpretation Comments LACTATE DEHYDROGENASE (BEAKER) (test 391 U/L 125-220 H code = 635) IRON, TIBC, % SAT. (WITHOUT FERRITIN)2018-09-12 07:11:00 Test Item Value Reference Range Interpretation Comments IRON (BEAKER) (test code = 547) 100.0 ug/dL 40.0-160.0 TOTAL IRON BINDING CAPACITY 131 ug/dL 250-450 L (BEAKER) (test code = 769) IRON % SATURATION (2) (BEAKER) 76 % 20-55 H (test code = 2590) [id number] 06:41:00 Test Item Value Reference Range Interpretation Comments FERRITIN (BEAKER) (test code = 361) 763 ng/mL 5-275 H TSH/FREE T4 IF [id number] 06:41:00 Test Item Value Reference Range Interpretation Comments THYROID STIMULATING HORMONE 1.34 uIU/mL 0.35-4.94 (BEAKER) (test code = 772) VITAMIN B12 AND [id number] 06:41:00 Test Item Value Reference Range Interpretation Comments VITAMIN B12 (BEAKER) (test code = 1087 pg/mL 213-816 H 774) FOLATE (BEAKER) (test code = 362) 7.3 ng/mL >=7.0 CBC W/PLT COUNT & AUTO [id number] 05:15:00 Test Item Value Reference Range Interpretation Comments WHITE BLOOD CELL COUNT (BEAKER) 10.6 K/ L 3.5-10.5 H (test code = 775) RED BLOOD CELL COUNT (BEAKER) 3.30 M/ L 4.63-6.08 L (test code = 761) HEMOGLOBIN (BEAKER) (test code = 10.4 GM/DL 13.7-17.5 L 410) HEMATOCRIT (BEAKER) (test code = 30.4 % 40.1-51.0 L 411) MEAN CORPUSCULAR VOLUME (BEAKER) 92.1 fL 79.0-92.2 (test code = 753) MEAN CORPUSCULAR HEMOGLOBIN 31.5 pg 25.7-32.2 (BEAKER) (test code = 751) MEAN CORPUSCULAR HEMOGLOBIN CONC 34.2 GM/DL 32.3-36.5 (BEAKER) (test code = 752) RED CELL DISTRIBUTION WIDTH 15.0 % 11.6-14.4 H (BEAKER) (test code = 412) PLATELET COUNT (BEAKER) (test 216 K/CU MM 150-450 code = 756) MEAN PLATELET VOLUME (BEAKER) 9.9 fL 9.4-12.4 (test code = 754) NUCLEATED RED BLOOD CELLS 0 /100 WBC 0-0 (BEAKER) (test code = 413) NEUTROPHILS RELATIVE PERCENT 64 % (BEAKER) (test code = 429) LYMPHOCYTES RELATIVE PERCENT 21 % (BEAKER) (test code = 430) MONOCYTES RELATIVE PERCENT 11 % (BEAKER) (test code = 431) EOSINOPHILS RELATIVE PERCENT 2 % (BEAKER) (test code = 432) BASOPHILS RELATIVE PERCENT 0 % (BEAKER) (test code = 437) NEUTROPHILS ABSOLUTE COUNT 6.77 K/ L 1.78-5.38 H (BEAKER) (test code = 670) LYMPHOCYTES ABSOLUTE COUNT 2.27 K/ L 1.32-3.57 (BEAKER) (test code = 414) MONOCYTES ABSOLUTE COUNT (BEAKER) 1.17 K/ L 0.30-0.82 H (test code = 415) EOSINOPHILS ABSOLUTE COUNT 0.18 K/ L 0.04-0.54 (BEAKER) (test code = 416) BASOPHILS ABSOLUTE COUNT (BEAKER) 0.03 K/ L 0.01-0.08 (test code = 417) IMMATURE GRANULOCYTES-RELATIVE 2 % 0-1 H PERCENT (BEAKER) (test code = 2801) URINALYSIS W/ REFLEX URINE [id number] 14:57:00 Test Item Value Reference Range Interpretation Comments COLOR (BEAKER) (test code = 470) Light Yellow CLARITY (BEAKER) (test code = Clear 469) SPECIFIC GRAVITY UA (BEAKER) 1.010 1.001-1.035 (test code = 468) PH UA (BEAKER) (test code = 467) 5.0 5.0-8.0 PROTEIN UA (BEAKER) (test code = Negative Negative 464) GLUCOSE UA (BEAKER) (test code = Negative Negative 365) KETONES UA (BEAKER) (test code = Negative Negative 371) BILIRUBIN UA (BEAKER) (test code Negative Negative = 462) BLOOD UA (BEAKER) (test code = Small Negative A 461) NITRITE UA (BEAKER) (test code = Negative Negative 465) LEUKOCYTE ESTERASE UA (BEAKER) Negative Negative (test code = 466) UROBILINOGEN UA (BEAKER) (test 0.2 mg/dL 0.2-1.0 code = 463) RBC UA (BEAKER) (test code = < /HPF 519) WBC UA (BEAKER) (test code = 1 /HPF 520) BACTERIA (BEAKER) (test code = Rare 517) MUCUS (BEAKER) (test code = Rare 1574) SQUAMOUS EPITHELIAL (BEAKER) < /HPF (test code = 516) SOURCE(BEAKER) (test code = 2795) BLOOD GAS, [id number] 13:22:00 Test Item Value Reference Range Interpretation Comments PH ARTERIAL (BEAKER) (test code = 7.51 7.35-7.45 H 383) PCO2 ARTERIAL (BEAKER) (test code 28 mmHg 35-45 L = 384) PO2 ARTERIAL (BEAKER) (test code 91 mmHg 80-90 H = 385) O2 SATURATION ARTERIAL (BEAKER) 97.7 % 96.0-97.0 H (test code = 386) HCO3 ARTERIAL (BEAKER) (test code 21 mmol/L 21-29 = 388) BASE EXCESS ARTERIAL (BEAKER) -0.7 mmol/L -2.0-3.0 (test code = 387) PATIENT TEMPERATURE (BEAKER) 37.0 C (test code = 1818) FIO2 (BEAKER) (test code = 1819) 21.0 % [id number] 13:21:00 Test Item Value Reference Range Interpretation Comments CARBOXYHEMOGLOBIN (BEAKER) (test code = 0.4 % 0.0-5.0 695) RAD, CHEST, 1 VIEW, NON [id number] 12:46:00Reason for exam:->sobFINAL REPORT EXAM: Chest one view COMPARISON: August 05, 2018 CLINICAL HISTORY: Shortness of breath FINDINGS: A 4.8 x 6.3 cm soft tissue density structure is seen overlying the right lung base adjacent to the medial cardiophrenic angle. CT is recommended for further assessment to ruleout a pulmonary mass. The cardiac size is within normal limits. There is no evidence of pleural effusion or pneumothorax. The left subclavian dual lead transvenous pacemaker is unchanged in position. The regional osseous structures are unremarkable. Signed: Mal Mayorga MDReport Verified Date/Time:09/11/2018 12:46:23 Reading Location: [facility] [id number] Consult Reading Room B-TYPE NATRIURETIC FACTOR (BNP)2018-09-11 12:44:00 Test Item Value Reference Range Interpretation Comments B-TYPE NATRIURETIC PEPTIDE (BEAKER) 30 pg/mL 0-100 (test code = 700) CBC W/PLT COUNT & AUTO [id number] 11:08:00 Test Item Value Reference Range Interpretation Comments WHITE BLOOD CELL COUNT (BEAKER) 20.5 K/ L 3.5-10.5 H (test code = 775) RED BLOOD CELL COUNT (BEAKER) 3.35 M/ L 4.63-6.08 L (test code = 761) HEMOGLOBIN (BEAKER) (test code = 10.8 GM/DL 13.7-17.5 L 410) HEMATOCRIT (BEAKER) (test code = 31.5 % 40.1-51.0 L 411) MEAN CORPUSCULAR VOLUME (BEAKER) 94.0 fL 79.0-92.2 H (test code = 753) MEAN CORPUSCULAR HEMOGLOBIN 32.2 pg 25.7-32.2 (BEAKER) (test code = 751) MEAN CORPUSCULAR HEMOGLOBIN CONC 34.3 GM/DL 32.3-36.5 (BEAKER) (test code = 752) RED CELL DISTRIBUTION WIDTH 15.2 % 11.6-14.4 H (BEAKER) (test code = 412) PLATELET COUNT (BEAKER) (test 196 K/CU MM 150-450 code = 756) MEAN PLATELET VOLUME (BEAKER) 10.3 fL 9.4-12.4 (test code = 754) NUCLEATED RED BLOOD CELLS 0 /100 WBC 0-0 (BEAKER) (test code = 413) (CELLAVISION MANUAL DIFF)2018-09-11 11:08:00 Test Item Value Reference Range Interpretation Comments NEUTROPHILS - REL 81 % (CELLAVISION)(BEAKER) (test code = 2816) LYMPHOCYTES - REL 13 % (CELLAVISION)(BEAKER) (test code = 2817) MONOCYTES - REL 6 % (CELLAVISION)(BEAKER) (test code = 2818) NEUTROPHILS - ABS 16.61 K/ul 1.78-5.38 H (CELLAVISION)(BEAKER) (test code = 2830) LYMPHOCYTES - ABS 2.67 K/ul 1.32-3.57 (CELLAVISION)(BEAKER) (test code = 2831) MONOCYTES - ABS 1.23 K/uL 0.30-0.82 H (CELLAVISION)(BEAKER) (test code = 2832) TOTAL COUNTED (BEAKER) (test code 100 = 1351) PLT MORPHOLOGY (BEAKER) (test code Normal = 486) SMUDGE CELLS (BEAKER) (test code = Present 1371) ANISOCYTOSIS (BEAKER) (test code = 1+ few 961) POIKILOCYTES (BEAKER) (test code = 1+ few 966) ELIAZAR CELLS (BEAKER) (test code = 1+ few 474) PLATELET CONCENTRATION Adequate (CELLAVISION)(BEAKER) (test code = 3438) Received comment: User comments: Slide comments:BASIC METABOLIC [id number] 06:48:00 Test Item Value Reference Range Interpretation Comments SODIUM (BEAKER) 137 meq/L 136-145 (test code = 381) POTASSIUM (BEAKER) 3.6 meq/L 3.5-5.1 (test code = 379) CHLORIDE (BEAKER) 108 meq/L 98-107 H (test code = 382) CO2 (BEAKER) (test 21 meq/L 22-29 L code = 355) BLOOD UREA NITROGEN 19 mg/dL 7-21 (BEAKER) (test code = 354) CREATININE (BEAKER) 1.12 mg/dL 0.57-1.25 (test code = 358) GLUCOSE RANDOM 110 mg/dL 70-105 H (BEAKER) (test code = 652) CALCIUM (BEAKER) 8.7 mg/dL 8.4-10.2 (test code = 697) EGFR (BEAKER) (test 79 mL/min/1.73 ESTIMA BILL GFR IS code = 1092) sq m NOT ACCURATE CREATININE CLEARANCE IN PREDICTING GLOMERULAR FILTRATION RATE . ESTIMATED GFR I S NOT APPLICABLE FOR DIALYSIS PATIEN TS. CREATINE KINASE (CK)2018-09-11 06:33:00 Test Item Value Reference Range Interpretation Comments CREATINE KINASE TOTAL (BEAKER) (test 3573 U/L 29-200 H code = 380) TROPONIN [id number] 14:17:00 Test Item Value Reference Range Interpretation Comments TROPONIN I (BEAKER) (test code = 0.02 ng/mL 0.00-0.03 397) Troponin I (TnI) levels must be interpreted in the context of the presenting symptoms and the clinical findings. Elevated TnI levels indicate myocardial damage, but are not specific for ischemic heart disease. Elevated TnI levels are seen in patients with other cardiac conditions (including myocarditis and congestive heart failure), and slight TnI elevations occur in patients with other conditions, including sepsis, renal failure, acidosis, acute neurological disease, and persistent tachyarrhythmia.LACTIC ACID, [id number] 14:06:00 Test Item Value Reference Range Interpretation Comments LACTATE BLOOD VENOUS (2) (BEAKER) 0.9 mmol/L 0.5-2.2 (test code = 2872) CBC W/PLT COUNT & AUTO [id number] 10:14:00 Test Item Value Reference Range Interpretation Comments WHITE BLOOD CELL COUNT (BEAKER) 24.3 K/ L 3.5-10.5 H (test code = 775) RED BLOOD CELL COUNT (BEAKER) 3.51 M/ L 4.63-6.08 L (test code = 761) HEMOGLOBIN (BEAKER) (test code = 11.4 GM/DL 13.7-17.5 L 410) HEMATOCRIT (BEAKER) (test code = 33.2 % 40.1-51.0 L 411) MEAN CORPUSCULAR VOLUME (BEAKER) 94.6 fL 79.0-92.2 H (test code = 753) MEAN CORPUSCULAR HEMOGLOBIN 32.5 pg 25.7-32.2 H (BEAKER) (test code = 751) MEAN CORPUSCULAR HEMOGLOBIN CONC 34.3 GM/DL 32.3-36.5 (BEAKER) (test code = 752) RED CELL DISTRIBUTION WIDTH 15.9 % 11.6-14.4 H (BEAKER) (test code = 412) PLATELET COUNT (BEAKER) (test 209 K/CU MM 150-450 code = 756) MEAN PLATELET VOLUME (BEAKER) 9.8 fL 9.4-12.4 (test code = 754) NUCLEATED RED BLOOD CELLS 0 /100 WBC 0-0 (BEAKER) (test code = 413) (CELLAVISION MANUAL DIFF)2018-09-10 10:14:00 Test Item Value Reference Range Interpretation Comments NEUTROPHILS - REL 81 % (CELLAVISION)(BEAKER) (test code = 2816) LYMPHOCYTES - REL 5 % (CELLAVISION)(BEAKER) (test code = 2817) MONOCYTES - REL 9 % (CELLAVISION)(BEAKER) (test code = 2818) BANDS - REL (CELLAVISION)(BEAKER) 5 % 0-10 (test code = 2826) NEUTROPHILS - ABS 19.68 K/ul 1.78-5.38 H (CELLAVISION)(BEAKER) (test code = 2830) LYMPHOCYTES - ABS 1.22 K/ul 1.32-3.57 L (CELLAVISION)(BEAKER) (test code = 2831) MONOCYTES - ABS 2.19 K/uL 0.30-0.82 H (CELLAVISION)(BEAKER) (test code = 2832) BANDS - ABS (CELLAVISION)(BEAKER) 1.22 K/uL 0.00-0.80 H (test code = 2840) TOTAL COUNTED (BEAKER) (test code 100 = 1351) WBC MORPHOLOGY (BEAKER) (test code Normal = 487) PLT MORPHOLOGY (BEAKER) (test code Normal = 486) ANISOCYTOSIS (BEAKER) (test code = 1+ few 961) MACROCYTES (BEAKER) (test code = 1+ few 964) ARTIFACT (CELLAVISION)(BEAKER) Present (test code = 3432) PLATELET CONCENTRATION Adequate (CELLAVISION)(BEAKER) (test code = 3438) Received comment: User comments: Slide comments:COMPREHENSIVE METABOLIC PANEL 2018-09-10 07:28:00 Test Item Value Reference Range Interpretation Comments TOTAL PROTEIN 6.5 gm/dL 6.0-8.3 (BEAKER) (test code = 770) ALBUMIN (BEAKER) 3.3 g/dL 3.5-5.0 L (test code = 1145) ALKALINE PHOSPHATASE 44 U/L 40-150 (BEAKER) (test code = 346) BILIRUBIN TOTAL 0.7 mg/dL 0.2-1.2 (BEAKER) (test code = 377) SODIUM (BEAKER) (test 138 meq/L 136-145 code = 381) POTASSIUM (BEAKER) 3.7 meq/L 3.5-5.1 (test code = 379) CHLORIDE (BEAKER) 107 meq/L 98-107 (test code = 382) CO2 (BEAKER) (test 21 meq/L 22-29 L code = 355) BLOOD UREA NITROGEN 32 mg/dL 7-21 H (BEAKER) (test code = 354) CREATININE (BEAKER) 1.79 mg/dL 0.57-1.25 H (test code = 358) GLUCOSE RANDOM 144 mg/dL 70-105 H (BEAKER) (test code = 652) CALCIUM (BEAKER) 8.8 mg/dL 8.4-10.2 (test code = 697) AST (SGOT) (BEAKER) 103 U/L 5-34 H (test code = 353) ALT (SGPT) (BEAKER) 44 U/L 6-55 (test code = 347) EGFR (BEAKER) (test 46 mL/min/1.73 ESTIMA BILL GFR IS code = 1092) sq m NOT ACCURATE CREATININE CLEARANCE IN PREDICTING GLOMERULAR FILTRATION RATE . ESTIMATED GFR I S NOT APPLICABLE FOR DIALYSIS PATIEN TS. CREATINE KINASE (CK)2018-09-10 07:28:00 Test Item Value Reference Range Interpretation Comments CREATINE KINASE TOTAL (BEAKER) (test 5459 U/L 29-200 H code = 380) TROPONIN [id number] 07:23:00 Test Item Value Reference Range Interpretation Comments TROPONIN I (BEAKER) (test code = 0.03 ng/mL 0.00-0.03 397) Troponin I (TnI) levels must be interpreted in the context of the presenting symptoms and the clinical findings. Elevated TnI levels indicate myocardial damage, but are not specific for ischemic heart disease. Elevated TnI levels are seen in patients with other cardiac conditions (including myocarditis and congestive heart failure), and slight TnI elevations occur in patients with other conditions, including sepsis, renal failure, acidosis, acute neurological disease, and persistent tachyarrhythmia.LACTIC ACID, [id number] 07:12:00 Test Item Value Reference Range Interpretation Comments LACTATE BLOOD VENOUS (2) (BEAKER) 1.5 mmol/L 0.5-2.2 (test code = 2872) TROPONIN [id number] 09:25:00 Test Item Value Reference Range Interpretation Comments TROPONIN I (BEAKER) (test code = 397) < ng/mL 0.00-0.03 Troponin I (TnI) levels must be interpreted in the context of the presenting symptoms and the clinical findings. Elevated TnI levels indicate myocardial damage, but are not specific for ischemic heart disease. Elevated TnI levels are seen in patients with other cardiac conditions (including myocarditis and congestive heart failure), and slight TnI elevations occur in patients with other conditions, including sepsis, renal failure, acidosis, acute neurological disease, and persistent tachyarrhythmia.[id number] 09:19:00 Test Item Value Reference Range Interpretation Comments MAGNESIUM (BEAKER) (test code = 1.8 mg/dL 1.6-2.6 627) COMPREHENSIVE METABOLIC [id number] 09:19:00 Test Item Value Reference Range Interpretation Comments TOTAL PROTEIN 6.9 gm/dL 6.0-8.3 (BEAKER) (test code = 770) ALBUMIN (BEAKER) 4.0 g/dL 3.5-5.0 (test code = 1145) ALKALINE PHOSPHATASE 57 U/L 40-150 (BEAKER) (test code = 346) BILIRUBIN TOTAL 0.7 mg/dL 0.2-1.2 (BEAKER) (test code = 377) SODIUM (BEAKER) (test 140 meq/L 136-145 code = 381) POTASSIUM (BEAKER) 3.7 meq/L 3.5-5.1 (test code = 379) CHLORIDE (BEAKER) 108 meq/L 98-107 H (test code = 382) CO2 (BEAKER) (test 23 meq/L 22-29 code = 355) BLOOD UREA NITROGEN 27 mg/dL 7-21 H (BEAKER) (test code = 354) CREATININE (BEAKER) 1.39 mg/dL 0.57-1.25 H (test code = 358) GLUCOSE RANDOM 128 mg/dL 70-105 H (BEAKER) (test code = 652) CALCIUM (BEAKER) 9.4 mg/dL 8.4-10.2 (test code = 697) AST (SGOT) (BEAKER) 12 U/L 5-34 (test code = 353) ALT (SGPT) (BEAKER) 9 U/L 6-55 (test code = 347) EGFR (BEAKER) (test 61 mL/min/1.73 ESTIMA BILL GFR IS code = 1092) sq m NOT ACCURATE CREATININE CLEARANCE IN PREDICTING GLOMERULAR FILTRATION RATE . ESTIMATED GFR I S NOT APPLICABLE FOR DIALYSIS PATIEN TS. [id number] 09:19:00 Test Item Value Reference Range Interpretation Comments PROTIME (BEAKER) (test code = 13.4 seconds 11.7-14.7 759) INR (BEAKER) (test code = 370) 1.1 <=5.9 PARTIAL THROMBOPLASTIN TIME 72.7 seconds 22.5-36.0 H (BEAKER) (test code = 760) RECOMMENDED COUMADIN/WARFARIN INR THERAPY RANGESSTANDARD DOSE: 2.0 - 3.0 Includes: PROPHYLAXIS for venous thrombosis, systemic embolization; TREATMENT for venous thrombosis and/or pulmonary embolus.HIGH RISK: Target INR is 2.5-3.5 for patients with mechanical heart valves.CBC W/PLT COUNT & AUTO [id number] 09:01:00 Test Item Value Reference Range Interpretation Comments WHITE BLOOD CELL COUNT (BEAKER) 9.3 K/ L 3.5-10.5 (test code = 775) RED BLOOD CELL COUNT (BEAKER) 3.81 M/ L 4.63-6.08 L (test code = 761) HEMOGLOBIN (BEAKER) (test code = 12.1 GM/DL 13.7-17.5 L 410) HEMATOCRIT (BEAKER) (test code = 36.3 % 40.1-51.0 L 411) MEAN CORPUSCULAR VOLUME (BEAKER) 95.3 fL 79.0-92.2 H (test code = 753) MEAN CORPUSCULAR HEMOGLOBIN 31.8 pg 25.7-32.2 (BEAKER) (test code = 751) MEAN CORPUSCULAR HEMOGLOBIN CONC 33.3 GM/DL 32.3-36.5 (BEAKER) (test code = 752) RED CELL DISTRIBUTION WIDTH 15.0 % 11.6-14.4 H (BEAKER) (test code = 412) PLATELET COUNT (BEAKER) (test 206 K/CU MM 150-450 code = 756) MEAN PLATELET VOLUME (BEAKER) 10.4 fL 9.4-12.4 (test code = 754) NUCLEATED RED BLOOD CELLS 0 /100 WBC 0-0 (BEAKER) (test code = 413) NEUTROPHILS RELATIVE PERCENT 74 % (BEAKER) (test code = 429) LYMPHOCYTES RELATIVE PERCENT 15 % (BEAKER) (test code = 430) MONOCYTES RELATIVE PERCENT 10 % (BEAKER) (test code = 431) EOSINOPHILS RELATIVE PERCENT 0 % (BEAKER) (test code = 432) BASOPHILS RELATIVE PERCENT 1 % (BEAKER) (test code = 437) NEUTROPHILS ABSOLUTE COUNT 6.86 K/ L 1.78-5.38 H (BEAKER) (test code = 670) LYMPHOCYTES ABSOLUTE COUNT 1.38 K/ L 1.32-3.57 (BEAKER) (test code = 414) MONOCYTES ABSOLUTE COUNT (BEAKER) 0.97 K/ L 0.30-0.82 H (test code = 415) EOSINOPHILS ABSOLUTE COUNT 0.03 K/ L 0.04-0.54 L (BEAKER) (test code = 416) BASOPHILS ABSOLUTE COUNT (BEAKER) 0.05 K/ L 0.01-0.08 (test code = 417) IMMATURE GRANULOCYTES-RELATIVE 0 % 0-1 PERCENT (BEAKER) (test code = 2801) RAD, CHEST, 2 [id number] 08:52:00Reason for exam:->EDEMAat pacemaker insertion siteShould this be performed at the bedside?->NoFINAL REPORT Chest, AP view. History: Edema. Comparison: 06/16/2017. Discussion:Left AICD present. Stable cardiac silhouette. The lungs are clear without evidence of consolidation or effusion. There are no acute osseous abnormalities. The soft tissues are unremarkable. IMPRESSION:No acute cardiopulmonary abnormality. Signed: Olu Lama MDReport Verified Date/Time: 08/05/2018 08:52:36 Reading Location: [address] Reading Room POCT-GLUCOSE [id number] 14:39:00 Test Item Value Reference Range Interpretation Comments POC-GLUCOSE METER 117 mg/dL 70-110 H TESTED AT [facility] ([facility]) (test [facility] [place] [facility] 1538) [id number] RAD, CHEST, 1 VIEW, NON [id number] 10:52:00Upright portable CXR at bedside. Remove telemetry wires prior to taking the X-ray.Reason for exam:->PPMShould this be performed at the bedside?->YesFINAL REPORT CLINICAL HISTORY: PPM TECHNIQUE: 1 view of the chest. COMPARISON: 06/15/2018 IMPRESSION: A left chest wall dual-lead pacemaker is again seen without evidence for pneumothorax. There are no infiltrates or effusions. The cardiomediastinal silhouette is magnified by technique. Signed: Kaylee Veronicaeport Verified Date/Time: 06/16/2018 10:52:51 Reading Location: [facility] Radiology Reading Room POCT- GLUCOSE [id number] 08:34:00 Test Item Value Reference Range Interpretation Comments POC-GLUCOSE METER 112 mg/dL 70-110 H TESTED AT [place] [id number] ([facility]) (test code = [facility] [place] [facility] 1538) [id number] BUN AND [id number] 04:30:00 Test Item Value Reference Range Interpretation Comments BLOOD UREA NITROGEN 17 mg/dL 7-21 ([facility]) (test code = 354) CREATININE ([facility]) 1.26 mg/dL 0.57-1.25 H Specimen slightly (test code = 358) hemolyzed EGFR ([facility]) (test 69 mL/min/1.73 ESTIMA BILL GFR IS code = 1092) sq m NOT ACCURATE CREATININE CLEARANCE IN PREDICTING GLOMERULAR FILTRATION RATE . ESTIMATED GFR I S NOT APPLICABLE FOR DIALYSIS PATIEN TS. HEMOGLOBIN AND [id number] 04:03:00 Test Item Value Reference Range Interpretation Comments HEMOGLOBIN ([facility]) (test code = 11.7 GM/DL 13.7-17.5 L 410) HEMATOCRIT ([facility]) (test code = 36.2 % 40.1-51.0 L 411) POCT-GLUCOSE [id number] 22:03:00 Test Item Value Reference Range Interpretation Comments POC-GLUCOSE METER 111 mg/dL 70-110 H TESTED AT [facility] 6720 ([facility]) (test code = CHIKI Tovar [facility] 1538) [id number] POCT-GLUCOSE [id number] 19:18:00 Test Item Value Reference Range Interpretation Comments POC-GLUCOSE METER 167 mg/dL 70-110 H TESTED AT [facility] 6720 ([facility]) (test code = CHIKI Tovar [facility] 1538) [id number] POCT-GLUCOSE [id number] 11:53:00 Test Item Value Reference Range Interpretation Comments POC-GLUCOSE METER 97 mg/dL 70-110 TESTED AT [facility] 6720 ([facility]) (test code = CHIKI Tovar [facility] [address] 1538) RAD, CHEST, 1 VIEW, NON [id number] 10:07:00Upright portable CXR stat on arrival to the holding area. Remove telemetry wires prior to CXR. Page Ashlie Harmon PA-C [phone] when X-ray has been done.Reason for exam:->sp PPM r/o PTXShould this be performed at the bedside?->YesFINAL REPORT CLINICAL HISTORY: sp PPM r/o PTX TECHNIQUE: 1 view of the chest. CO MPARISON: 09/09/2016 IMPRESSION: There are no focal infiltrates or effusions. There is a left chest wall dual-lead pacemaker without pneumothorax. The cardiomediastinal silhouette is magnified by technique. 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 The right lobe measures 5 x 3 x 2 cm, isthmus measures 2.5 x 2 x 0.4 cm, and left lobe measuring 8 x 5x 2.5 cm. The surface is red-brown and intact with numerous adhesions.Ink code: anterior right-red, anterior left-blue, anterior isthmus-green and deep-black.The thyroid is serially sectioned from superior to inferior showing a multinodular cut surface with the largest nodule in the left lobe having apale-vaca, hemorrhagic, lobulated cut surface and measuring 5 x 2.5 x 2.5 cm. The isthmus is grossly unremarkable. No distinct parathyroid tissue is seen.Section code: A1-A12, all inked margins of largest nodule left lobe; A13, A14, additional sections of left thyroid lobe; A15, field sales representative of isthmus; A16-A20, field sales representative of right lobe superior to inferior. CG/ewSections show multinodular thyroid with benign follicles of variable size, with prominent fibrosis, hyalinization of the stroma, cystic degeneration, and hemosiderin deposition. No malignancy is observed.CALCIUM 2017-10-07 05:12:00 Test Item Value Reference Range Interpretation Comments CALCIUM (BEAKER) (test code = 697) 9.4 mg/dL 8.4-10.2 PTH, [id number] 05:11:00 Test Item Value Reference Range Interpretation Comments PARATHYROID HORMONE INTACT 37.9 pg/mL 8.5-72.5 (BEAKER) (test code = 577) PTH, [id number] 20:19:00 Test Item Value Reference Range Interpretation Comments PARATHYROID HORMONE INTACT 30.9 pg/mL 8.5-72.5 (BEAKER) (test code = 577) [id number] 20:11:00 Test Item Value Reference Range Interpretation Comments CALCIUM (BEAKER) (test code = 697) 9.3 mg/dL 8.4-10.2 URINE [id number] 10:32:00 Test Item Value Reference Range Interpretation Comments CULTURE (BEAKER) (test code = 1095) No growth TISSUE [id number] 14:11:00Surgical Pathology Report Case: [id number] Authorizing Provider: Lei Perez MD Collected: 09/07/2016 1144 Ordering Location: [facility] Received: 09/07/2016 1245 SERVICES Pathologist: Pratik Spencer MD Specimen: Disc L4-5 VERTEBRAL COLUMN, INTERVERTEBRAL DISC, L4-5, DISCECTOMY:FRAGMENTS OF FIBROCARTILAGE WITH MILD DEGENERATIVE CHANGESFRAGMENTS OF BONE WITH FOCAL INTRAMEDULLARY FIBROSIS 02376; 47060Lzhsfiguj herniation of lumbar discDisc L4-5Received in saline labeled "disc L4-5" is a 2.5 x 2.2 x 0.2 cm aggregate of pink-vaca to harrington-white, rubbery, fibrillar, cartilaginous and osseous tissue. The specimen is entirely submitted in cassette A1 for decalcification. KAH/DB/ewPerformedURINALYSIS W/ [id number] 07:39:00 Test Item Value Reference Range Interpretation Comments COLOR (BEAKER) (test code = 470) Light Yellow CLARITY (BEAKER) (test code = Clear 469) SPECIFIC GRAVITY UA (BEAKER) 1.014 1.001-1.035 (test code = 468) PH UA (BEAKER) (test code = 467) 5.0 5.0-8.0 PROTEIN UA (BEAKER) (test code = Negative Negative 464) GLUCOSE UA (BEAKER) (test code = Negative Negative 365) KETONES UA (BEAKER) (test code = Negative Negative 371) BILIRUBIN UA (BEAKER) (test code Negative Negative = 462) BLOOD UA (BEAKER) (test code = Negative Negative 461) NITRITE UA (BEAKER) (test code = Negative Negative 465) LEUKOCYTE ESTERASE UA (BEAKER) Negative Negative (test code = 466) UROBILINOGEN UA (BEAKER) (test 0.2 mg/dL 0.2-1.0 code = 463) RBC UA (BEAKER) (test code = 1 /HPF 519) WBC UA (BEAKER) (test code = 2 /HPF 520) BACTERIA (BEAKER) (test code = Occasional 517) MUCUS (BEAKER) (test code = Rare 1574) SOURCE(BEAKER) (test code = 1352) BASIC METABOLIC [id number] 04:16:00 Test Item Value Reference Range Interpretation Comments SODIUM (BEAKER) 138 meq/L 136-145 (test code = 381) POTASSIUM (BEAKER) 4.6 meq/L 3.5-5.1 (test code = 379) CHLORIDE (BEAKER) 110 meq/L 98-107 H (test code = 382) CO2 (BEAKER) (test 18 meq/L 22-29 L code = 355) BLOOD UREA NITROGEN 32 mg/dL 7-21 H (BEAKER) (test code = 354) CREATININE (BEAKER) 1.47 mg/dL 0.57-1.25 H (test code = 358) GLUCOSE RANDOM 140 mg/dL 70-105 H (BEAKER) (test code = 652) CALCIUM (BEAKER) 8.7 mg/dL 8.4-10.2 (test code = 697) EGFR (BEAKER) (test 58 mL/min/1.73 ESTIMA BILL GFR IS code = 1092) sq m NOT ACCURATE CREATININE CLEARANCE IN PREDICTING GLOMERULAR FILTRATION RATE . ESTIMATED GFR I S NOT APPLICABLE FOR DIALYSIS PATIEN TS. CBC (HEMOGRAM ONLY)2016-09-08 04:06:00 Test Item Value Reference Range Interpretation Comments WHITE BLOOD CELL COUNT (BEAKER) 13.3 K/ L 4.0-10.0 H (test code = 775) RED BLOOD CELL COUNT (BEAKER) 3.62 M/ L 4.20-5.80 L (test code = 761) HEMOGLOBIN (BEAKER) (test code = 11.8 GM/DL 13.0-16.8 L 410) HEMATOCRIT (BEAKER) (test code = 35.3 % 40.0-50.0 L 411) MEAN CORPUSCULAR VOLUME (BEAKER) 97.5 fL 82.0-98.0 (test code = 753) MEAN CORPUSCULAR HEMOGLOBIN 32.7 pg 27.0-33.0 (BEAKER) (test code = 751) MEAN CORPUSCULAR HEMOGLOBIN CONC 33.5 GM/DL 32.0-36.0 (BEAKER) (test code = 752) RED CELL DISTRIBUTION WIDTH 13.6 % 10.3-14.2 (BEAKER) (test code = 412) PLATELET COUNT (BEAKER) (test 140 K/CU MM 150-430 L code = 756) MEAN PLATELET VOLUME (BEAKER) 8.7 fL 6.5-10.5 (test code = 754) NUCLEATED RED BLOOD CELLS 0 /100 WBC 0-0 (BEAKER) (test code = 413) [id number]
[2022-11-16 10:07] LABS: Absolute Lymphocytes (CBC) 1.8 K/uL (0.7-4.9); Hematocrit 33.4 % (39.6-49.0); MCV 95.4 fL (80-100); MPV 8.3 fL (7.6-11.3); Platelets 182 thou/uL (152-406)
[2022-11-16 10:24] LABS: Albumin 3.4 g/dL (3.4-5.0); Bilirubin Total 0.4 mg/dL (0.2-1.0); Potassium 3.3 mEq/L (3.5-5.1); Protein, Total 6.9 g/dL (6.4-8.2); Uric Acid 7.2 mg/dL (3.5-7.2)
--- NOTE | 2022-11-16 10:36 | EDPHYS ---
Physician Documentation [facility] Name: Jaiden Tejeda Age: 72 yrs Sex: Male : 1950 Arrival Date: 11/16/2022 Time: 09:03 Bed 2 Private MD: ED Physician Heladio Coronado HPI: 11/16 09:50 This 72 yrs old Black Male presents to ER via Unassigned with complaints of Feet snw Swelling. 09:50 The patient presents with swelling, denies tenderness. The complaints affect the left snw foot, right foot. Context: The problem was sustained at home, resulted from an unknown cause, the patient can fully bear weight, the patient is able to ambulate. Onset: The symptoms/episode began/occurred acutely. Associated signs and symptoms: The patient has no apparent associated signs or symptoms. Severity of symptoms: At their worst the symptoms were severe. The patient has experienced a previous episode, pt states he had gout when this happened before. Pt denies pain. Historical: - Allergies: 09:45 No Known Allergies; me1 - Home Meds: 09:45 aspirin 81 mg Oral capsule [Active]; atorvastatin [Active]; brimonidine tartrate me1 [Active]; clonidine [Active]; dorzolamide-timolol [Active]; ferrous sulfate [Active]; fish oil [Active]; furosemide [Active]; hydrocodone/apap [Active]; latanoprost [Active]; levothyroxine [Active]; lisinopril [Active]; nefedipine [Active]; terazosin [Active]; - PMHx: 09:45 gout; Hypertensive disorder; Hypothyroidism; Hypercholesterolemia; Glaucoma; Chronic me1 back pain; - PSHx: 09:45 spinal fusion; pacemaker; me1 - Immunization history:: Adult Immunizations up to date. - Social history:: Smoking status: Patient/guardian denies using tobacco, but has a distant history of tobacco abuse. ROS: 09:51 Constitutional: Negative for fever, chills, and weight loss, Eyes: Negative for injury, snw pain, redness, and discharge, ENT: Negative for injury, pain, and discharge, Neck: Negative for injury, pain, and swelling, Cardiovascular: Negative for chest pain, palpitations, and edema, Respiratory: Negative for shortness of breath, cough, wheezing, and pleuritic chest pain, Abdomen/GI: Negative for abdominal pain, nausea, vomiting, diarrhea, and constipation, Back: Negative for injury and pain, : Negative for injury, bleeding, discharge, and swelling, Skin: Negative for injury, rash, and discoloration, Neuro: Negative for headache, weakness, numbness, tingling, and seizure, Psych: Negative for depression, anxiety, suicide ideation, homicidal ideation, and hallucinations. 09:51 MS/extremity: Positive for swelling, bilateral ankles/feet. Exam: 09:52 Constitutional: This is a well developed, well nourished patient who is awake, alert, snw and in no acute distress. Head/Face: Normocephalic, atraumatic. Eyes: Pupils equal round and reactive to light, extra-ocular motions intact. Lids and lashes normal. Conjunctiva and sclera are non-icteric and not injected. Cornea within normal limits. Periorbital areas with no swelling, redness, or edema. ENT: Nares patent. No nasal discharge, no septal abnormalities noted. Tympanic membranes are normal and external auditory canals are clear. Oropharynx with no redness, swelling, or masses, exudates, or evidence of obstruction, uvula midline. Mucous membranes moist. Neck: Trachea midline, no thyromegaly or masses palpated, and no cervical lymphadenopathy. Supple, full range of motion without nuchal rigidity, or vertebral point tenderness. No Meningismus. Cardiovascular: Regular rate and rhythm with a normal S1 and S2. No gallops or rubs. Normal PMI, no JVD. No pulse deficits. + severe stenosis murmur, Pt has pacemaker Respiratory: Lungs have equal breath sounds bilaterally, clear to auscultation and percussion. No rales, rhonchi or wheezes noted. No increased work of breathing, no retractions or nasal flaring. Abdomen/GI: Soft, non-tender, with normal bowel sounds. No distension or tympany. No guarding or rebound. No evidence of tenderness throughout. Back: No spinal tenderness. No costovertebral tenderness. Full range of motion. Skin: Warm, dry with normal turgor. Normal color with no rashes, no lesions, and no evidence of cellulitis. Neuro: Awake and alert, GCS 15, oriented to person, place, time, and situation. Cranial nerves II-XII grossly intact. Motor strength 5/5 in all extremities. Sensory grossly intact. Cerebellar exam normal. Normal gait. Psych: Awake, alert, with orientation to person, place and time. Behavior, mood, and affect are within normal limits. 09:52 Musculoskeletal/extremity: Extremities: all appear grossly normal, with no appreciated pain with palpation, ROM: no acute changes, Circulation is intact in all extremities. Sensation intact. significant nonpitting edema to ankles and feet, pt on nifedipine but also has hx of gout. Vital Signs: 09:45 BP 145 / 84; Pulse 72; Resp 17; Temp 98.3(O); Pulse Ox 100% on R/A; Weight 58.97 kg; me1 Height 5 ft. 10 in. ; Pain 0/10; 10:52 BP 161 / 78; Pulse 94; Resp 18; Pulse Ox 100% on R/A; me1 09:45 Body Mass Index 18.65 (58.97 kg, 177.8 cm) me1 09:45 Pain Scale: Adult me1 MDM: 09:22 Patient medically screened. snw 09:54 Differential diagnosis: fracture, arthritis, gout, medication side effect. Data snw reviewed: vital signs, nurses notes, lab test result(s). 11/16 09:38 Order name: CBC with Diff; Complete Time: 10:30 snw 11/16 09:38 Order name: CMP; Complete Time: 10:30 snw 11/16 09:38 Order name: Uric Acid; Complete Time: 10:30 snw 11/16 09:38 Order name: BNP; Complete Time: 10:30 snw Administered Medications: 10:51 Drug: Furosemide PO 20 mg Route: PO; me1 11:00 Follow up: Response: No adverse reaction me1 10:51 Drug: Potassium PO Effervescent Tablet 50 mEq Route: PO; me1 11:00 Follow up: Response: No adverse reaction me1 Disposition: 12:20 Co-signature as Attending Physician, Heladio Coronado MD I reviewed the patient's care rn provided by the Advanced Practice Provider and agree with the diagnosis and treatment plan. Disposition Summary: 11/16/22 10:35 Discharge Ordered Location: Home snw Condition: Stable snw Diagnosis - Hypertensive heart and chronic kidney disease with heart failure and stage 1 snw through stage 4 chronic kidney disease, or unspecified chronic kidney disease - stage 4 - Hypokalemia snw - Adverse effect of calcium-channel blockers, initial encounter - pedal edema snw Followup: snw - With: Private Physician - When: Tomorrow - Reason: Recheck today's complaints, Continuance of care, Re-evaluation by your physician Discharge Instructions: - Discharge Summary Sheet snw - Edema snw - Food Basics for Chronic Kidney Disease snw - Chronic Kidney Disease, Adult, Mgcp-cs-Jeek snw - Hypokalemia snw Forms: - Medication Reconciliation Form snw - Thank You Letter snw - Antibiotic Education snw - Prescription Opioid Use snw - Patient Portal Instructions snw - Leadership Thank You Letter snw Signatures: Dispatcher [employer] EDOanh Abreu, SPAGHETTI PRESS HELPER-C SPAGHETTI PRESS HELPER-Csnw Heladio Coronado MD MD rn Constance Leavitt RN RN me1
--- NOTE | 2022-11-16 10:36 | ER ---
Nurse's Notes [facility] Name: Jaiden Tejeda Age: 72 yrs Sex: Male : 1950 Arrival Date: 11/16/2022 Time: 09:03 Bed 2 Private MD: Diagnosis: Hypertensive heart and chronic kidney disease with heart failure and stage 1 through stage 4 chronic kidney disease, or unspecified chronic kidney disease-stage 4;Hypokalemia;Adverse effect of calcium-channel blockers, initial encounter-pedal edema Presentation: 11/16 09:45 Chief complaint: Patient states: bilateral feet swelling since the beginning of October me1 but have worsened recently. +4 pitting edema noted to Bilateral feet. Denies any sob. Reports hx of gout. Denies pain. Coronavirus screen: Vaccine status: Patient reports receiving the 2nd dose of the covid vaccine. At this time, the client does not indicate any symptoms associated with coronavirus-19. Ebola Screen: No symptoms or risks identified at this time. Initial Sepsis Screen: Does the patient meet any 2 criteria? No. Patient's initial sepsis screen is negative. Does the patient have a suspected source of infection? No. Patient's initial sepsis screen is negative. Risk Assessment: Do you want to hurt yourself or someone else? Patient reports no desire to harm self or others. Onset of symptoms was October 02, 2022. 09:45 Method Of Arrival: [facility] 09:45 Acuity: KUNAL 3 me1 Triage Assessment: 09:45 General: Appears comfortable, well groomed, well developed, well nourished, Behavior is ny1 calm, cooperative, appropriate for age. Pain: Denies pain. Neuro: Level of Consciousness is awake, alert, obeys commands, Oriented to person, place, time, situation, Appropriate for age. Cardiovascular: Capillary refill < 3 seconds Patient's skin is warm and dry. Cardiovascular: +4 pitting edema to bilateral feet. Respiratory: Airway is patent Respiratory effort is even, unlabored, Respiratory pattern is regular, symmetrical. Musculoskeletal: Swelling present in right foot and left foot. Historical: - Allergies: 09:45 No Known Allergies; me1 - Home Meds: 09:45 aspirin 81 mg Oral capsule [Active]; atorvastatin [Active]; brimonidine tartrate me1 [Active]; clonidine [Active]; dorzolamide-timolol [Active]; ferrous sulfate [Active]; fish oil [Active]; furosemide [Active]; hydrocodone/apap [Active]; latanoprost [Active]; levothyroxine [Active]; lisinopril [Active]; nefedipine [Active]; terazosin [Active]; - PMHx: 09:45 gout; Hypertensive disorder; Hypothyroidism; Hypercholesterolemia; Glaucoma; Chronic me1 back pain; - PSHx: 09:45 spinal fusion; pacemaker; me1 - Immunization history:: Adult Immunizations up to date. - Social history:: Smoking status: Patient/guardian denies using tobacco, but has a distant history of tobacco abuse. Screenin:08 [facility] ED Fall Risk Assessment (Adult) Score/Fall Risk Level 0 - 2 = Low Risk. Abuse me1 screen: Denies threats or abuse. Nutritional screening: No deficits noted. Tuberculosis screening: No symptoms or risk factors identified. Assessment: 10:08 General: see triage assessment. . me1 Vital Signs: 09:45 BP 145 / 84; Pulse 72; Resp 17; Temp 98.3(O); Pulse Ox 100% on R/A; Weight 58.97 kg; me1 Height 5 ft. 10 in. ; Pain 0/10; 10:52 BP 161 / 78; Pulse 94; Resp 18; Pulse Ox 100% on R/A; me1 09:45 Body Mass Index 18.65 (58.97 kg, 177.8 cm) me1 09:45 Pain Scale: Adult ny1 ED Course: 09:08 Patient arrived in ED. im 09:11 Oanh Koenig FNP-C is PHCP. snw 09:11 Heladio Coronado MD is Attending Physician. snw 09:45 Arm band placed on Patient placed in waiting room. me1 09:53 Inserted saline lock: 22 gauge in right antecubital area, using aseptic technique. me1 09:54 BNP Sent. me1 09:54 Uric Acid Sent. me1 09:54 CMP Sent. me1 09:54 CBC with Diff Sent. me1 09:59 Triage completed. me1 10:02 Constance Leavitt, RN is Primary Nurse. me1 10:08 No provider procedures requiring assistance completed. me1 10:08 Flushed right antecubital. me1 10:08 Patient has correct armband on for positive identification. Bed in low position. Call me1 light in reach. Provided Education on: POC. Verbalilzed understanding. . 11:04 IV discontinued, intact, bleeding controlled, No redness/swelling at site. Pressure me1 dressing applied. Administered Medications: 10:51 Drug: Furosemide PO 20 mg Route: PO; me1 11:00 Follow up: Response: No adverse reaction me1 10:51 Drug: Potassium PO Effervescent Tablet 50 mEq Route: PO; me1 11:00 Follow up: Response: No adverse reaction me1 Medication: 10:08 VIS not applicable for this client. me1 Outcome: 10:35 Discharge ordered by . mattie 11:04 Discharged to home ambulatory. me1 11:04 Condition: stable 11:04 Discharge instructions given to patient, Instructed on discharge instructions, follow up and referral plans. Demonstrated understanding of instructions, follow-up care. 11:04 Patient left the ED. me1 Signatures: Oanh Koenig, GAMING HOST-C GAMING HOST-Csnw Kathy Gonsalves Michelle, RN RN me1
[2022-11-16] MEDS ORDERED: POTASSIUM 25 MEQ EFFERV TAB ONE (10:58)
[2022-11-16] MEDS ORDERED: FUROSEMIDE 20 MG TABLET ONE (10:59)
[2022-11-16 11:09] VITALS: TEMP 98.3; O2SAT 100
[2022-11-16 11:16] VITALS: BP 161/78
== END 2022-11-16 11:04 | disposition home or self-care (01) ==
LOC: ER 09:03
DX: I13.0 Hypertensive heart and chronic kidney disease with heart failure and stage 1 through stage 4 chronic kidney disease, or unspecified chronic kidney disease (principal); N18.4 Chronic kidney disease, stage 4 (severe); I50.9 Heart failure, unspecified; E87.6 Hypokalemia; T46.1X5A Adverse effect of calcium-channel blockers, initial encounter; Z95.0 Presence of cardiac pacemaker; Z79.82 Long term (current) use of aspirin
CPT/HCPCS: 36415; 80053; 83880; 84550; 85025; 99284